=== PATIENT | female | born 1990 | race Caucasian/White ===

== ENCOUNTER 2020-03-10 09:32 | Outpatient (REF) | payer MEDICAID, SELFPAY ==
--- NOTE | 2020-03-10 09:57 | XR_ITS ---
EXAMINATION: X-RAY BILATERAL KNEES CLINICAL INFORMATION: Knee pain COMPARISON: 09/09/2016 TECHNIQUE: Right knee 4 views. Left knee 5 views. FINDINGS: Right knee: Normal alignment. Joint spaces are maintained. Small marginal patellar spurs. There is subchondral lucency suggesting cystic changes in the lateral patellar facet. No fracture or dislocation. No effusion. Left knee: Normal alignment. Joint spaces are maintained. Small marginal spurs in the 3 compartments. No fracture or dislocation. No effusion. XR/XR knee LT 3V IMPRESSION: Right knee: 1. No evidence of acute osseous abnormality.. 2. Mild patellofemoral arthritis. Left knee: No acute osseous abnormality. Mild degenerative spurring.
--- NOTE | 2020-03-10 09:57 | XR_ITS ---
EXAMINATION: X-RAY BILATERAL KNEES CLINICAL INFORMATION: Knee pain COMPARISON: 09/09/2016 TECHNIQUE: Right knee 4 views. Left knee 5 views. FINDINGS: Right knee: Normal alignment. Joint spaces are maintained. Small marginal patellar spurs. There is subchondral lucency suggesting cystic changes in the lateral patellar facet. No fracture or dislocation. No effusion. Left knee: Normal alignment. Joint spaces are maintained. Small marginal spurs in the 3 compartments. No fracture or dislocation. No effusion. XR/XR knee RT 3V IMPRESSION: Right knee: 1. No evidence of acute osseous abnormality.. 2. Mild patellofemoral arthritis. Left knee: No acute osseous abnormality. Mild degenerative spurring.
== END 2020-03-10 09:33 | disposition home or self-care (01) ==
LOC: HO.XRAY 09:32
PROVIDERS: PCP Family Medicine; Visit Provider Family Medicine
DX: G89.29 Other chronic pain (principal); M25.561 Pain in right knee; M25.562 Pain in left knee
CPT/HCPCS: 73562

== ENCOUNTER 2020-04-10 13:46 | Outpatient (REF) | payer MEDICAID, SELFPAY ==
[2020-04-10 16:48] LABS: CT PCR NOT DETECTED (Not Detect.); NG PCR NOT DETECTED (Not Detect.)
[2020-04-10 16:52] LABS: Syphilis Screen Nonreactive (Nonreactive)
[2020-04-11 04:45] LABS: HBsAGNum1 0.25 S/CO (0.00-0.99); HIV AB/AG Nonreactive (Nonreactive); HIV Num 1 0.29 S/CO (0.00-0.99); Hepatitis B Surface Antigen Negative (Negative)
[2020-04-11 13:21] LABS: BV Int Neg Control Negative (Negative); BV Int Pos Control Positive (Positive)
== END 2020-04-10 13:47 | disposition home or self-care (01) ==
LOC: HO.LAB 13:46
PROVIDERS: Visit Provider Obstetrics & Gynecology
DX: Z01.419 Encounter for gynecological examination (general) (routine) without abnormal findings (principal); Z11.3 Encounter for screening for infections with a predominantly sexual mode of transmission
CPT/HCPCS: 86780; 87340; 87389; 87480; 87491; 87510; 87591; 87660

== ENCOUNTER 2020-04-12 13:47 | Outpatient (REF) | payer MEDICAID, SELFPAY ==
--- NOTE | 2020-04-12 16:40 | MHC.AU.P13 ---
Adult Audiological Evaluation Date of Visit: 04/12/20 Reason for Appointment: Audiological evaluation due to concern for decreased hearing in the left ear. Ms. Resendiz notes that at ~10 years old she had an ear infection in the left ear and had a bad reaction to the antibiotic she was given. She feels that since that time she has continued to have problems with the left ear and hears some popping noises in the left ear. She denies concerns for the right ear. She also notes that she speaks loudly and thinks that may be related to not hearing well. Does patient feel they have a hearing loss?: Yes If Yes, Which Ear?: Left Ear When Was Hearing Difficulty First Noticed?: ~10 years old Has hearing been tested previously?: No Ear History: Ear Infections in Childhood: Both Ears Medical History: Medical History: Tobacco Use Medical History (Other): Fibromyalgia, anxiety Otoscopy: Right Ear: Unremarkable Left Ear: Unremarkable Tympanometry: Right Ear: Normal Middle Ear System (Type A) Left Ear: Normal Middle Ear System (Type A) Hearing Evaluation: Transducer(s) Used: Insert Earphones, Bone Conduction Method: Conventional Audiometry Stimuli Used: Pure Tones Right Ear: Description of Hearing: Normal hearing from 250-8000 Hz. Left Ear: Description of Hearing: Normal hearing from 250-8000 Hz. Speech Recognition Threshold (SRT): Method Used: Recorded Lists Stimuli Used: Spondee Words Right Ear: 25 dBHL Left Ear: 20 dBHL Word Discrimination: Method: Recorded Lists Word Lists Used: Lista Bisil?bica (Portuguese) Right Ear: 100% at 65 dBHL Left Ear: 100% at 65 dBHL Recommendations: Recommendations: No further audiological action is indicated at this time. Audiological re-evaluation if changes are noted. Diagnosis: Primary Diagnosis: H93.293 Abnormal Auditory Perception Services Performed: Services Performed: Comprehensive Audiological Evaluation (CPT 23554) Tympanometry (CPT 57225) Signature: Provider: Judy Mcintyre, JONATHON-A
== END 2020-04-12 13:48 | disposition home or self-care (01) ==
LOC: HO.SH 13:47
PROVIDERS: PCP Family Medicine; Referring Provider Family Medicine; Visit Provider Family Medicine
DX: H93.293 Other abnormal auditory perceptions, bilateral (principal)
CPT/HCPCS: 92557; 92567

== ENCOUNTER 2020-06-22 11:53 | Outpatient (REF) | payer MEDICAID, SELFPAY ==
[2020-06-22 13:09] LABS: MANUAL DIFF FLAG NO
[2020-06-22 13:14] LABS: Basophils Percent Auto 0.6 % (0-2); Eosinophils Absolute Auto 0.2 X10*3/uL (0.0-0.4); Eosinophils Percent Auto 2.5 % (0-4); Hematocrit 41.6 % (37-47); Hemoglobin 13.3 g/dl (12.0-16.0); Imm Gran Abs Auto 0.02 X10*3/uL (0.00-0.03); Imm Gran Pct Auto 0.3 % (0.0-0.4); Lymphocytes Absolute Auto 2.2 X10*3/uL (1.2-4.9); Lymphocytes Percent Auto 32.3 % (20-40); Mean Corpuscular Hemoglobin 27.8 pg (27.0-33.0); Mean Platelet Volume 9.7 fL (9.4-12.3); Monocytes Absolute Auto 0.4 X10*3/uL (0.1-1.2); Monocytes Percent Auto 5.9 % (2-11); Neutrophils Absolute Auto 4.1 X10*3/uL (2.0-8.3); Neutrophils Percent Auto 58.4 % (45-73); Platelet Count 329 X10*3/uL (160-400); Red Blood Count 4.78 X10*6/uL (4.20-5.50); Red Cell Distribution Width 12.3 % (11.0-16.0); White Blood Count 6.9 X10*3/uL (4.8-10.8)
[2020-06-22 13:44] LABS: Alanine Aminotransferase 14 U/L (0-31); Albumin Level 4.2 g/dL (3.5-5.0); Alkaline Phosphatase 70 U/L (39-117); Anion Gap 11 (12-20); Aspartate Amino Transferase 16 U/L (5-31); Bilirubin Direct 0.2 mg/dL (0.0-0.5); Bilirubin Total 0.4 mg/dL (0.0-1.0); Blood Urea Nitrogen 12 mg/dL (9-16); Calcium 9.1 mg/dL (8.4-10.2); Carbon Dioxide 29 mmol/L (22-29); Chloride 104 mmol/L (96-108); Cholesterol 162 mg/dL; Estimated Glomerular Filt Rate > 60; Glucose Random 86 mg/dL (60-115); HDL Cholesterol 49 mg/dL; LDL Cholesterol Calculated 106 mg/dl; Potassium 4.4 mmol/L (3.3-5.1); Sodium 140 mmol/L (135-145); Total Protein 7.3 g/dL (6.5-8.0); Triglycerides 35 mg/dL
[2020-06-22 13:56] LABS: HIV AB/AG Nonreactive (Nonreactive); HIV Num 1 0.17 S/CO (0.00-0.99); ~HepC Num1 0.13 S/CO (0.00-0.79); ~Hepatitis C Antibody Nonreactive (Nonreactive)
[2020-06-22 14:01] LABS: TSH reflex Free T4 0.69 uIU/mL (0.32-4.0)
[2020-06-22 19:38] LABS: Estimated Average Glucose 103 mg/dL; Hemoglobin A1c % 5.2 %
[2020-06-23 03:41] LABS: Syphilis Screen Nonreactive (Nonreactive)
[2020-06-23 14:11] LABS: C. trachomatis RNA TMA NOT DETECTED (NOT DETECTED); N. gonorrhoeae RNA TMA NOT DETECTED (NOT DETECTED)
== END 2020-06-22 11:54 | disposition home or self-care (01) ==
LOC: HO.LAB 11:53
PROVIDERS: PCP Nurse Practitioner Primary Care; Visit Provider Nurse Practitioner Primary Care
DX: Z00.00 Encounter for general adult medical examination without abnormal findings (principal); Z11.3 Encounter for screening for infections with a predominantly sexual mode of transmission; E55.9 Vitamin D deficiency, unspecified; E66.9 Obesity, unspecified; M79.7 Fibromyalgia; R00.0 Tachycardia, unspecified
CPT/HCPCS: 36415; 80048; 80061; 80076; 83036; 84443; 85025; 86780; 86803; 87389; 87491; 87591

== ENCOUNTER 2020-06-26 11:15 | Outpatient (REF) | payer MEDICAID, SELFPAY ==
--- NOTE | ~2020-06-26 | MM_ITS ---
EXAMINATION: MM DIAGNOSTIC DIGITAL BREAST TOMOSYNTHESIS, BILATERAL US DIAGNOSTIC ULTRASOUND BREAST, RIGHT CLINICAL INFORMATION: 29-year-old with persistent pain upper outer right breast. No palpable mass or discharge. No known family history breast cancer. No prior breast imaging. The lifetime risk of breast cancer based on the Tyrer-Cuzick Model is 9%. COMPARISON: None (current study represents initial baseline exam). TECHNIQUE: Digital breast tomosynthesis is performed in both the craniocaudal and mediolateral oblique views along with computer-aided detection (CAD). Synthesized 2D images are generated from the tomosynthesis. Ultrasound ultrasound right breast is targeted to the area of clinical concern. Grayscale imaging and color Doppler are performed without and with harmonics. Patient is able to point to area of concern at time of imaging. FINDINGS: There are scattered areas of fibroglandular density (ACR BI-RADS breast composition Category b). There are no significant masses, abnormal calcifications, or other abnormalities. The axilla and skin contours are unremarkable. There is no significant thickening or coarsening of the Giovanni's ligaments. Ultrasound right breast demonstrates no cystic or solid mass, architectural abnormality, or focal duct ectasia. No skin thickening or edema tracking in soft tissue planes. Results are discussed with the patient at time of visit. MM/MM tomosynthesis diagnostic BI IMPRESSION: 1. No mammographic evidence of malignancy or inflammatory changes. 2. Unremarkable targeted right breast ultrasound. ASSESSMENT: BI-RADS 1: Negative RECOMMENDATION: 1. Patient's right breast pain should be managed based on the clinical impression. 2. Otherwise, routine annual screening mammography, beginning age 40, or earlier as clinical risk factors warrant. This patient's information was entered into a reminder system with a target due date for their next mammogram.
== END 2020-06-26 11:16 | disposition home or self-care (01) ==
LOC: HO.MAMMO 11:15
PROVIDERS: PCP Nurse Practitioner Primary Care; Visit Provider Nurse Practitioner Primary Care
DX: N64.4 Mastodynia (principal); Z80.3 Family history of malignant neoplasm of breast
CPT/HCPCS: 76642; 77062; 77066

== ENCOUNTER 2020-07-20 13:00 | Outpatient (RCR) | payer MEDICAID, SELFPAY | END 2020-10-03 15:43 | disposition other institution (70) | LOC: HO.PT 13:00 | PROVIDERS: PCP Nurse Practitioner Primary Care; Visit Provider Nurse Practitioner Primary Care | DX: M17.0 Bilateral primary osteoarthritis of knee (principal) | CPT/HCPCS: 97110; 97140; 97162; 97530 ==

== ENCOUNTER 2020-08-23 11:39 | Outpatient (REF) | payer MEDICAID, SELFPAY ==
[2020-08-23 12:48] LABS: Syphilis Screen Nonreactive (Nonreactive)
[2020-08-24 08:55] LABS: CT PCR NOT DETECTED (Not Detect.); NG PCR NOT DETECTED (Not Detect.)
[2020-08-25 07:44] LABS: ~HepC Num1 0.09 S/CO (0.00-0.79); ~Hepatitis C Antibody Nonreactive (Nonreactive)
[2020-08-25 07:52] LABS: HBc Num1 0.07 S/CO (0.00-0.79); HIV AB/AG Nonreactive (Nonreactive); HIV Num 1 0.06 S/CO (0.00-0.99); Hepatitis B Core Antibody Nonreactive (Nonreactive)
[2020-08-25 08:09] LABS: HBS Num1 145.42 mIU/mL (0-7.99); ~Hepatitis B Surface Antibody REACTIVE (Nonreactive)
== END 2020-08-23 11:40 | disposition home or self-care (01) ==
LOC: HO.LAB 11:39
PROVIDERS: PCP Nurse Practitioner Primary Care; Visit Provider Nurse Practitioner Primary Care
DX: Z11.4 Encounter for screening for human immunodeficiency virus [HIV] (principal); Z11.3 Encounter for screening for infections with a predominantly sexual mode of transmission; Z01.84 Encounter for antibody response examination
CPT/HCPCS: 86704; 86706; 86780; 86803; 87389; 87491; 87591

== ENCOUNTER 2020-11-06 15:46 | Outpatient (REF) | payer MEDICAID, SELFPAY | END 2020-11-06 15:47 | disposition home or self-care (01) | LOC: HO.LAB 15:46 | PROVIDERS: Visit Provider Internal Medicine | DX: Z20.822 Contact with and (suspected) exposure to COVID-19 (principal) | CPT/HCPCS: C9803; U0003; U0005 ==

== ENCOUNTER 2021-01-22 11:00 | Outpatient (RCR) | payer MEDICAID, SELFPAY | END 2021-02-06 11:35 | disposition home or self-care (01) | LOC: HO.PT 11:00 | PROVIDERS: PCP Nurse Practitioner Primary Care; Visit Provider Nurse Practitioner Primary Care | DX: M54.9 Dorsalgia, unspecified (principal) | CPT/HCPCS: 97110; 97162 ==

== ENCOUNTER 2021-01-24 13:10 | Emergency (ER) | payer MEDICAID, SELFPAY ==
--- NOTE | 2021-01-24 | ECG_ITS ---
Test Reason : CHEST PAIN Blood Pressure : / mmHG Vent. Rate : 065 BPM Atrial Rate : 065 BPM P-R Int : 162 ms QRS Dur : 082 ms QT Int : 368 ms P-R-T Axes : 036 057 037 degrees QTc Int : 382 ms Normal sinus rhythm with sinus arrhythmia Nonspecific T wave abnormality Abnormal ECG No previous ECGs available Referred By: Generic ED Physician Electronically Signed By:ASHLEE CONLEY
--- NOTE | ~2021-01-24 | CT_ITS ---
EXAMINATION: CT ANGIOGRAM CHEST CLINICAL INFORMATION: Pain and pressure with left hand pain: COMPARISON: None TECHNIQUE: Multiple axial images were obtained through the chest after the administration of 76 mL of Omnipaque 350 intravenous contrast. Post-processing including two-dimensional and MIP reformatted images were created on the acquisition workstation. This CT examination was performed using dose optimization techniques as appropriate, variously including the following: *Automated exposure control *Adjustment of mA and/or kV according to patient size (this includes techniques or standardized protocols for targeted exams where dose is matched to indication/reason for exam; i.e. extremities or head) *Use of iterative reconstruction technique DLP: 354 mGy-cm FINDINGS: There is some breathing and pulsation motion artifact present limiting evaluation of the aortic root and distal thoracic aorta. There is no evidence of thoracic aortic aneurysm or thoracic aortic dissection. The origin of the arch vessels appear unremarkable without evidence of dissection or obstruction. The left subclavian artery is patent without evidence of dissection or filling defect. The right innominate and subclavian arteries are patent without dissection or abnormal filling defect. The proximal aspects of the vertebral and carotid arteries are patent. Central airways are patent. No bronchial wall thickening. No bronchiectasis. No confluent parenchymal disease. No suspicious lung nodules. No pneumothorax. Heart normal size. Some residual thymus is seen. No thyroid abnormality appreciated. No pericardial effusion. No mediastinal or hilar lymphadenopathy seen. No pleural effusion. Visualized upper abdomen unremarkable. Osseous structures: No suspicious destructive bony lesions. CT/CT angio chest aorta IMPRESSION: No evidence of thoracic aortic aneurysm or dissection. No significant abnormality identified of the visualized left subclavian artery. No significant abnormality is appreciated on this study.
[2021-01-24 14:02] VITALS: BP 110/69; PULSE 68; RESP 17; TEMP 36.8; O2SAT 100; BMI 32.8
--- NOTE | 2021-01-24 14:14 | ED_ITS ---
HPI - Chest Pain General Chief Complaint: Chest Pain Stated Complaint: med eval Time Seen by Provider: 01/24/21 14:08 Source: patient and carroter Mode of arrival: ambulatory Limitations: no limitations History of Present Illness MD complaint: chest pain Onset (ago): week(s) (2) Timing of current episode: constant Prior episodes: No Onset: during rest and during exertion Pain location: left chest Pain radiation: left arm Severity: moderate Quality: heaviness Relieving factors: nothing Exacerbating factors: nothing Context: other (states it started after her covid vaccine, her arm feels cold and tingly at times) Treatment prior to arrival: none Related Data Previous Rx's Medication Instructions Recorded cyclobenzaprine 10 mg tablet 10 mg PO TID PRN #14 tab 01/24/21 Allergies Allergy/AdvReac Type Severity Reaction Status Date / Time aspirin [ASPIRIN] Allergy Intermediate RASH, Verified 01/24/21 14:02 shortness of breath Review of Systems Review of Systems: Constitutional : No Weight loss, No Fever, No Chills ENT/Mouth : No sore throat, No Rhinorrhea Eyes: No Eye Pain, No Swelling Cardiovascular : pos Chest Pain, no SOB, no Dyspnea on Exertion, No Orthopnea, No Edema, No Palpitations Respiratory : No Cough, No Sputum Gastrointestinal : no Nausea, No Vomiting, No Diarrhea, No abdominal Pain, No Hematochezia, No Melena Genitourinary : No Dysuria, No Urinary Frequency Musculoskeletal : No joint pain, No Myalgias, No Joint Swelling Skin : No Skin Lesions, No rash Neuro : No Weakness, pos Numbness, No Dizziness, No Headache Psych : No Anxiety/Panic, No Depression Heme/Lymph: No Bruising, No Lymphadenopathy Endocrine : No Polyuria, No Polydipsia All other systems reviewed and are negative [facility] Past Medical History Attestation statement: The following information was validated with the patient. Medical History Fibromyalgia Surgical History Tubal ligation status Social History Social History Alcohol intake: never Patient Tobacco Use Status: Never used Tobacco Use of substances other than those prescribed or required for medical reasons: Yes Substance Use Type: Marijuana Substance Use Frequency: Daily Advance Directives: No Advance Directives Information Provided: Yes Patient : No Physical Exam Vital Signs: Vital Signs: Last Vital Signs Temp 98.2 F 01/24/21 14:02 Pulse 69 01/24/21 14:21 Resp 16 01/24/21 14:21 BP 102/60 01/24/21 14:21 Pulse Ox 100 01/24/21 14:21 Body Mass Index 32.8 Appearance: Alert. Oriented X3. No acute distress. Eyes: Pupils equal, round and reactive to light. ENT: Pharynx normal. Neck: Normal inspection. Neck supple. CVS: Normal heart rate and rhythm. Pulses normal. Respiratory: No respiratory distress. Breath sounds normal. Abdomen: Soft and nontender. Skin: Skin warm and dry. Normal skin color. Normal skin turgor. Extremities: No lower extremity edema. No calf ttp LUE 2+ radial pulse, temperature similar to R hand Neuro: Oriented X 3. No motor deficit. No sensory deficit. Course Course Course Narrative: EKG trop neg with 2 weeks of symptoms signed out pending CTA results MDM - Chest Pain MDM Narrative Medical decision making narrative: 30 yo female c/o L chest pain and L hand being cold and upper arm tingling after her COVID shot. She is PERC negative, I do not appreciate deficits has a great pulse - will obtain EKG, troponin x 1, CTA for dissection and evaluation of vessels. Seems atypical at this time. doubt stroke Lab Data Result diagrams: 01/24/21 14:27 01/24/21 14:27 Labs: Lab Results 01/24/21 01/24/21 01/24/21 Range/Units 14:27 14:27 14:27 WBC 9.2 (4.8-10.8) X10*3/uL RBC 4.51 (4.20-5.50) X10*6/uL Hgb 13.2 (12.0-16.0) g/dl Hct 39.5 (37-47) % MCV 87.6 (80-98) fL MCH 29.3 (27.0-33.0) pg MCHC 33.4 (31.0-35.0) g/dl RDW 12.4 (11.0-16.0) % Plt Count 277 (160-400) X10*3/uL MPV 9.1 L (9.4-12.3) fL Immature Gran % (Auto) 0.3 (0.0-0.4) % Neut % (Auto) 60.3 (45-73) % Lymph % (Auto) 31.6 (20-40) % Wilcox % (Auto) 5.9 (2-11) % Eos % (Auto) 1.5 (0-4) % Baso % (Auto) 0.4 (0-2) % Lymph # (Auto) 2.9 (1.2-4.9) X10*3/uL Wilcox # (Auto) 0.5 (0.1-1.2) X10*3/uL Eos # (Auto) 0.1 (0.0-0.4) X10*3/uL Baso # (Auto) 0.0 (0.0-0.2) X10*3/uL Abs Immat Gran (auto) 0.03 (0.00-0.03) X10*3/uL Absolute Neuts (auto) 5.5 (2.0-8.3) X10*3/uL Absolute Nucleated RBC 0.000 (0.0-0.012) X10*3/uL Nucleated RBC % (auto) 0.0 (0.0-0.2) /100WBC Sodium 138 (135-145) mmol/L Potassium 3.5 D (3.3-5.1) mmol/L Chloride 105 (96-108) mmol/L Carbon Dioxide 26 (22-29) mmol/L Anion Gap 11 L (12-20) BUN 8 L (9-16) mg/dL Creatinine 0.86 (0.5-1.4) mg/dL Estim Creat Clear Calc 104.6 Estimated GFR > 60 Random Glucose 70 (60-115) mg/dL Calcium 9.6 (8.4-10.2) mg/dL Magnesium 2.1 (1.6-2.6) mg/dL Total Bilirubin 0.5 (0.0-1.0) mg/dL Direct Bilirubin 0.2 (0.0-0.5) mg/dL AST 15 (5-31) U/L ALT 12 (0-31) U/L Alkaline Phosphatase 67 (39-117) U/L Troponin I High Sens (<3.5-17.0) ng/L Total Protein 7.2 (6.5-8.0) g/dL Albumin 4.3 (3.5-5.0) g/dL Lipase 28 (8-78) U/L COVID-19 ([facility]) (Negative) COVID-19 Clin Com 01/24/21 01/24/21 Range/Units 14:27 14:28 WBC (4.8-10.8) X10*3/uL RBC (4.20-5.50) X10*6/uL Hgb (12.0-16.0) g/dl Hct (37-47) % MCV (80-98) fL MCH (27.0-33.0) pg MCHC (31.0-35.0) g/dl RDW (11.0-16.0) % Plt Count (160-400) X10*3/uL MPV (9.4-12.3) fL Immature Gran % (Auto) (0.0-0.4) % Neut % (Auto) (45-73) % Lymph % (Auto) (20-40) % Wilcox % (Auto) (2-11) % Eos % (Auto) (0-4) % Baso % (Auto) (0-2) % Lymph # (Auto) (1.2-4.9) X10*3/uL Wilcox # (Auto) (0.1-1.2) X10*3/uL Eos # (Auto) (0.0-0.4) X10*3/uL Baso # (Auto) (0.0-0.2) X10*3/uL Abs Immat Gran (auto) (0.00-0.03) X10*3/uL Absolute Neuts (auto) (2.0-8.3) X10*3/uL Absolute Nucleated RBC (0.0-0.012) X10*3/uL Nucleated RBC % (auto) (0.0-0.2) /100WBC Sodium (135-145) mmol/L Potassium (3.3-5.1) mmol/L Chloride (96-108) mmol/L Carbon Dioxide (22-29) mmol/L Anion Gap (12-20) BUN (9-16) mg/dL Creatinine (0.5-1.4) mg/dL Estim Creat Clear Calc Estimated GFR Random Glucose (60-115) mg/dL Calcium (8.4-10.2) mg/dL Magnesium (1.6-2.6) mg/dL Total Bilirubin (0.0-1.0) mg/dL Direct Bilirubin (0.0-0.5) mg/dL AST (5-31) U/L ALT (0-31) U/L Alkaline Phosphatase (39-117) U/L Troponin I High Sens < 3.5 (<3.5-17.0) ng/L Total Protein (6.5-8.0) g/dL Albumin (3.5-5.0) g/dL Lipase (8-78) U/L COVID-19 ([facility]) Negative (Negative) COVID-19 Clin Com See Note ECG Data ECG #1: Attestation: I personally reviewed and interpreted this ECG as follows: ECG interpretation date: 01/24/21 ECG interpretation time: 14:24 Interpretation: Rate: 65 Rhythm: NSR [place]: normal Normal P waves. Normal MATILDE. Normal QRS complex. ST T wave : no PADILLA, nonspecific qTC: normal prior studies: no prior no sig ischemia noted The study has been interpreted contemporaneously by me. . Discharge Plan Discharge Clinical Impression: Arm paresthesia, left Chest pain Qualifiers: Chest pain type: unspecified Qualified Code(s): R07.9 - Chest pain, unspecified Patient Disposition: Home, Self-Care Instructions: Chest Pain (ED), Paresthesia (ED) Additional Instructions: return to ED for any worsening symptoms or concerns COVID negative Prescriptions: New cyclobenzaprine 10 mg tablet 10 mg PO TID PRN (Reason: muscle spasm) Qty: 14 RF: 0 Stand Alone Forms: Work/School Release Print Language: [place] Islander
[2021-01-24 14:21] VITALS: BP 102/60; PULSE 66; PULSE 69; RESP 16; O2SAT 100
--- NOTE | 2021-01-24 14:22 | PC.NURSE ---
Pt denies chest pain but reports that it is more of a pressure. The pressure extends to her left arm and she has numbness to left arm and hand.
[2021-01-24 14:33] LABS: MANUAL DIFF FLAG NO
[2021-01-24 14:34] LABS: Basophils Percent Auto 0.4 % (0-2); Eosinophils Absolute Auto 0.1 X10*3/uL (0.0-0.4); Eosinophils Percent Auto 1.5 % (0-4); Hematocrit 39.5 % (37-47); Hemoglobin 13.2 g/dl (12.0-16.0); Imm Gran Abs Auto 0.03 X10*3/uL (0.00-0.03); Imm Gran Pct Auto 0.3 % (0.0-0.4); Lymphocytes Absolute Auto 2.9 X10*3/uL (1.2-4.9); Lymphocytes Percent Auto 31.6 % (20-40); Mean Corpuscular HGB Conc 33.4 g/dl (31.0-35.0); Mean Corpuscular Hemoglobin 29.3 pg (27.0-33.0); Mean Corpuscular Volume 87.6 fL (80-98); Mean Platelet Volume 9.1 fL (9.4-12.3); Monocytes Absolute Auto 0.5 X10*3/uL (0.1-1.2); Monocytes Percent Auto 5.9 % (2-11); Neutrophils Absolute Auto 5.5 X10*3/uL (2.0-8.3); Neutrophils Percent Auto 60.3 % (45-73); Platelet Count 277 X10*3/uL (160-400); Red Blood Count 4.51 X10*6/uL (4.20-5.50); Red Cell Distribution Width 12.4 % (11.0-16.0); White Blood Count 9.2 X10*3/uL (4.8-10.8)
[2021-01-24 14:50] LABS: COVID-19 Test Negative (Negative)
[2021-01-24 14:53] LABS: Anion Gap 11 (12-20); Blood Urea Nitrogen 8 mg/dL (9-16); Calcium 9.6 mg/dL (8.4-10.2); Carbon Dioxide 26 mmol/L (22-29); Chloride 105 mmol/L (96-108); Creatinine Clr Calc Pharmacy 104.6; Estimated Glomerular Filt Rate > 60; Glucose Random 70 mg/dL (60-115); Potassium 3.5 mmol/L (3.3-5.1); Sodium 138 mmol/L (135-145)
[2021-01-24 14:56] LABS: Alanine Aminotransferase 12 U/L (0-31); Albumin Level 4.3 g/dL (3.5-5.0); Alkaline Phosphatase 67 U/L (39-117); Aspartate Amino Transferase 15 U/L (5-31); Bilirubin Direct 0.2 mg/dL (0.0-0.5); Bilirubin Total 0.5 mg/dL (0.0-1.0); Lipase 28 U/L (8-78); Magnesium 2.1 mg/dL (1.6-2.6); Total Protein 7.2 g/dL (6.5-8.0)
[2021-01-24 14:59] LABS: Troponin-I High Sensitivity < 3.5 ng/L (<3.5-17.0)
[2021-01-24] MEDS: iohexoL 350 MG/ML 100 ML INFUS..BTL IV (15:35)
[2021-01-24 17:03] VITALS: BP 119/71; PULSE 62; RESP 20; TEMP 36.7; O2SAT 100
== END 2021-01-24 18:09 | disposition home or self-care (01) ==
PROVIDERS: Emergency Provider Emergency Medicine; PCP Nurse Practitioner Primary Care
DX: R07.9 Chest pain, unspecified (principal); R20.2 Paresthesia of skin; Z20.822 Contact with and (suspected) exposure to COVID-19; Z79.899 Other long term (current) drug therapy
CPT/HCPCS: 36415; 71275; 80048; 80076; 83690; 83735; 84484; 85025; 87635; 93005; 99284; 99285; Q9967

== ENCOUNTER 2021-04-11 13:45 | Outpatient (REF) | payer MEDICAID, SELFPAY ==
[2021-04-11 16:23] LABS: Syphilis Screen Nonreactive (Nonreactive)
[2021-04-12 02:52] LABS: CT PCR NOT DETECTED (Not Detect.); NG PCR NOT DETECTED (Not Detect.)
[2021-04-12 10:17] LABS: BV Int Neg Control Negative (Negative); BV Int Pos Control Positive (Positive)
[2021-04-13 04:58] LABS: HBc Num1 0.08 S/CO (0.00-0.79); HIV AB/AG Nonreactive (Nonreactive); HIV Num 1 0.07 S/CO (0.00-0.99); Hepatitis B Core Antibody Nonreactive (Nonreactive)
[2021-04-13 05:06] LABS: ~HepC Num1 0.09 S/CO (0.00-0.79); ~Hepatitis C Antibody Nonreactive (Nonreactive)
[2021-04-16 09:46] LABS: HPV 16 RNA NOT DETECTED (NOT DETECTED); HPV mRNA E6/E7 rflx Detected (Not Detected)
== END 2021-04-11 13:46 | disposition home or self-care (01) ==
LOC: HO.LAB 13:45
PROVIDERS: Visit Provider Advanced Practice Midwife
DX: Z01.411 Encounter for gynecological examination (general) (routine) with abnormal findings (principal); Z11.51 Encounter for screening for human papillomavirus (HPV); Z11.4 Encounter for screening for human immunodeficiency virus [HIV]; Z20.2 Contact with and (suspected) exposure to infections with a predominantly sexual mode of transmission; N89.8 Other specified noninflammatory disorders of vagina; N94.9 Unspecified condition associated with female genital organs and menstrual cycle
CPT/HCPCS: 36415; 81003; 81025; 86704; 86780; 86803; 87255; 87389; 87480; 87491; 87510; 87591; 87624; 87625; 87660; 88142

== ENCOUNTER 2021-04-17 11:29 | Outpatient (REF) | payer MEDICAID, SELFPAY ==
--- NOTE | ~2021-04-17 | US_ITS ---
EXAMINATION: US PELVIS CLINICAL INFORMATION: Pelvic pain COMPARISON: None TECHNIQUE: Ultrasound of the pelvis is performed using both transabdominal and transvaginal transducers along with Doppler. Transvaginal imaging is performed due to inadequate visualization transabdominally. FINDINGS: Uterus: The uterus is anteverted and measures 8 x 4.5 x 5.5 cm. Nabothian cysts at the cervix. The double wall endometrial thickness is 0.6 mm. Small amount of fluid seen within the endometrial cavity. The uterus is smooth in contour and has normal myometrial echogenicity. No visible fibroid. Adnexa: Both ovaries are visualized. There is normal color flow to the adnexa. There is no ovarian torsion. Small volume of pelvic free fluid.. Right ovary measures 3.6 x 2.1 x 2.4 cm. 1.8 cm corpus luteum noted. Left ovary measures 3 x 1.4 x 1.7 cm. No adnexal mass. US/US pelvic and transvaginal IMPRESSION: Small amount of pelvic free fluid which may be physiologic. Small amount of fluid in the endometrial cavity. No adnexal or uterine mass.
== END 2021-04-17 11:30 | disposition home or self-care (01) ==
LOC: HO.US 11:29
PROVIDERS: Absent Provider Nurse Practitioner Primary Care; PCP Nurse Practitioner Primary Care; Visit Provider Advanced Practice Midwife
DX: R10.2 Pelvic and perineal pain (principal)
CPT/HCPCS: 76830; 76856

== ENCOUNTER → 2021-07-10 09:58 | Outpatient (BNVA) | payer MEDICAID, SELFPAY | PROVIDERS: PCP Nurse Practitioner Primary Care; Visit Provider Physician Assistant Surgical ==

== ENCOUNTER 2022-06-05 11:03 | Outpatient (REF) | payer MEDICAID, SELFPAY ==
[2022-06-05 13:16] LABS: Syphilis Screen Nonreactive (Nonreactive)
[2022-06-05 15:07] LABS: CT PCR NOT DETECTED (Not Detect.); NG PCR NOT DETECTED (Not Detect.)
[2022-06-07 06:24] LABS: HBc Num1 0.13 S/CO (0.00-0.79); HIV AB/AG Nonreactive (Nonreactive); Hepatitis B Core Antibody Nonreactive (Nonreactive); ~Hepatitis C Antibody Nonreactive (Nonreactive)
== END 2022-06-05 11:04 | disposition home or self-care (01) ==
LOC: HO.LAB 11:03
PROVIDERS: PCP Nurse Practitioner Primary Care; Visit Provider Advanced Practice Midwife
DX: Z11.4 Encounter for screening for human immunodeficiency virus [HIV] (principal); Z11.3 Encounter for screening for infections with a predominantly sexual mode of transmission; Z20.2 Contact with and (suspected) exposure to infections with a predominantly sexual mode of transmission
CPT/HCPCS: 0353U; 86704; 86780; 86803; 87389; 87624; 88142

== ENCOUNTER 2022-06-05 11:32 | Outpatient (REF) | payer MEDICAID, SELFPAY ==
[2022-06-07 17:58] LABS: HPV mRNA E6/E7 rflx Not Detected (Not Detected)
== END 2022-06-05 11:33 | disposition home or self-care (01) ==
LOC: HO.LNP 11:32
PROVIDERS: Visit Provider Advanced Practice Midwife
DX: Z01.419 Encounter for gynecological examination (general) (routine) without abnormal findings (principal); Z11.51 Encounter for screening for human papillomavirus (HPV)
CPT/HCPCS: 87624; 88142

== ENCOUNTER → 2022-08-22 14:31 | Outpatient (REF) | payer MEDICAID, SELFPAY ==
--- NOTE | 2022-08-22 14:33 | CA_ITS ---
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 The visually estimated ejection fraction is between 60-65%. Diastolic function is normal for age. Right Ventricle Normal right ventricular cavity size and systolic function. Atria Both atria are normal in size. There is no evidence of interatrial shunt. Aortic Valve Normal aortic valve structure and function. There is no aortic valve stenosis. There is no aortic valve regurgitation. Mitral Valve Normal mitral valve structure and function. There is no mitral valve regurgitation. There is no mitral valve stenosis. Pulmonic Valve The pulmonic valve is likely normal. Tricuspid Valve Normal tricuspid valve structure. There is trace tricuspid valve regurgitation. The right ventricular systolic pressure is normal. The right ventricular systolic pressure is 21 mmHg. Normal right atrial pressure. There is no evidence of pulmonary hypertension. Great Vessels All visible segments of the aorta are normal in size. The visualized portions of the pulmonary artery and branches are normal. Venous The inferior vena cava is normal in size and collapses greater than 50% with inspiration. Pericardium/Pleural There is no evidence of pericardial effusion. Prior Study Comparison No prior study available for comparison. Measurements 2D Linear Measurements IVSd: 0.60 0.6-0.9/0.6-1.0 cm LVIDd: 5.39 3.9-5.3/4.2-5.9 cm LVIDd Index: 2.59 2.4-3.2/2.2-3.1 cm/m2 LVIDs: 3.40 2.0-3.6 cm LVPWd: 0.61 0.7-1.1 cm LA Diam: 3.40 2.7-3.8/3.0-4.0 cm LAIDs Index: 1.63 1.5-2.3 cm/m2 LV Mass: 136.14 67-162/88-224 g LV Mass Index: 65.45 43-95/49-115 g/m2 LVOT Diam: 2.10 3.0+(-)1.3 cm 2D Systolic Function EF 4C: 61.70 >55% EF 2C: 64.80 >55% EF BiP: 64.30 >55% Mitral Valve MV Pk E: 1.02 MV PK A: 0.54 MV Decel Time: 193.00 E/A: 1.90 E'Lateral: 12.80 E'Medial: 10.60 E/E' Med: 9.60 E/E' Lat: 8.00 PHT: 57.00 MVA PHT: 3.86 Decel [place]: 5.30 Aortic Valve AoV Pk Hi: 1.16 AoV Pk Grad: 5.00 BLANKA: 3.10 LVOT LVOT Pk Hi: 1.04 LVOT Mn Hi: 0.71 LVOT VTI: 0.23 LVOT Pk Grad: 4.00 LVOT Mn Grad: 2.00 LVOT Diam: 2.10 LVOT Area: 3.46 Diastolic Function MV Pk E: 1.02 MV Pk A: 0.54 E/A: 1.90 E'Medial: 10.60 E/E' Med: 9.60 E' Laterial: 12.80 E/E' Lat: 8.00 Right Ventricle TAPSE (mm): 21.20 TVS' Hi: 12.60 Tricuspid Valve TR Pk Hi: 2.12 TR Pk Grad: 18.00 RVSP: 21.00 Great Vessels Aorta Sinus of Valsalva: 2.70 2.0-3.5 cm Ao Asc: 2.50 2.1-3.4 cm Pulmonary Veins Pulm Vein S/D 0.80 Pulmonary Valve PV Pk Hi: 0.95 Peak PV Grad: 4.00 Updated in Other Vendor System with Status of Final Iván Harry MD electronically signed on 08/22/2022 5:28:40 PM with status of Final
== END ==
LOC: HO.CARD 14:31
PROVIDERS: PCP Nurse Practitioner Primary Care; Visit Provider Nurse Practitioner Primary Care
DX: R00.2 Palpitations (principal)
CPT/HCPCS: 93306

== ENCOUNTER 2022-10-01 15:19 | Outpatient (REF) | payer MEDICAID, SELFPAY ==
--- NOTE | ~2022-10-01 | XR_ITS ---
EXAMINATION: XR ANKLE, RIGHT CLINICAL INFORMATION: Pain COMPARISON: None available. TECHNIQUE: AP, lateral, and mortise views of the right ankle. FINDINGS: The bones are normal. No fracture. Alignment is anatomic. Joint spaces are maintained. No joint effusion. Small calcaneal spurs. XR/XR ankle RT min 3V IMPRESSION: Normal right ankle. Small calcaneal spurs.
--- NOTE | ~2022-10-01 | XR_ITS ---
EXAMINATION: XR KNEE, RIGHT CLINICAL INFORMATION: Pain COMPARISON: Previous x-ray most recent February 2020 TECHNIQUE: Four views of the right knee. FINDINGS: Bone alignment is normal. No fracture or dislocation. Small osteophytes at the patellofemoral and lateral femoral tibial joints. Small joint effusion. XR/XR knee RT 4V IMPRESSION: Mild degenerative changes.
== END 2022-10-01 15:20 | disposition home or self-care (01) ==
LOC: HO.XRAY 15:19
PROVIDERS: Absent Provider Nurse Practitioner Primary Care; PCP Nurse Practitioner Primary Care; Visit Provider Internal Medicine
DX: M25.561 Pain in right knee (principal); M25.571 Pain in right ankle and joints of right foot; G89.29 Other chronic pain
CPT/HCPCS: 73564; 73610

== ENCOUNTER 2022-11-28 11:58 | Outpatient (REF) | payer MEDICAID, SELFPAY ==
--- NOTE | ~2022-11-28 | XR_ITS ---
EXAMINATION: XR KNEE AP STANDING CLINICAL INFORMATION: Pain in the right knee COMPARISON: 10/04/2022 right knee TECHNIQUE: AP bilateral standing view of the knees was obtained. FINDINGS: There is no joint space is narrowing but there are mild marginal spurring and the lateral aspect of the tibial plateau bilaterally. Knees are well aligned on the weightbearing view. XR/XR knee standing BI IMPRESSION: Degenerative changes bilaterally
== END 2022-11-28 11:59 | disposition home or self-care (01) ==
LOC: HO.HOSX 11:58
PROVIDERS: Visit Provider Physician Assistant
DX: M17.11 Unilateral primary osteoarthritis, right knee (principal)
CPT/HCPCS: 73565; 99204

== ENCOUNTER 2022-11-28 13:25 | Outpatient (AMB) | payer MEDICAID, SELFPAY ==
--- NOTE | 2022-11-28 13:31 | A.OFFVIS_ITS ---
Intake Vital Signs 11/28/22 13:38 Height 5 ft 5 in Weight 226 lb BMI 37.6 Intake Visit Reasons: New PT - Right knee pain Intake Note: Sandrine is a 32 year old female who presents today as a new patient for a evaluation for her right knee pain. No hx of injections. Hx of PT with no relief. Patient reports ongoing pain for 10 years. She states a crunching sensation when walking and notices swelling when she over works. Her pain is on the whole knee. Pain is worse when sitting and getting up from a chair. Alos having c/o her left knee to but her right knee is worse. Allergies aspirin [ASPIRIN] Allergy (Intermediate, Verified 11/28/22 13:37) RASH, shortness of breath HPI New PT - Right knee pain HPI Details 32-year-old female, who is Bangladeshi speaking, presents in the office today, as a new patient, for an evaluation of right knee pain. The patient reports having chronic pain for 10 years, since 2012. She states she has tingling. She states she has a crunching sensation when ambulating. She reports edema when she over works the knee. Patient reports pain in the left knee, but states the right is worse then the left. Patient has no history of cortisone injections. She confirms participating in physical therapy with no relief. [facility] Medical History Fibromyalgia Hemorrhoids Surgical History Tubal ligation status Family History Father Diabetes Mother Diabetes Social History Alcohol intake: never Patient Tobacco Use Status: Never used Tobacco Substance Use Type: Marijuana Review of Systems Const All systems reviewed & are unremarkable except as noted in HPI and below Physical Exam Vital Signs: BMI result Body Mass Index 37.6 Const General: cooperative, healthy appearing, comfortable, no acute distress, well developed and alert Orientation/consciousness: patient oriented x3 HEENT Head: Yes normal to inspection, Yes normocephalic and Yes atraumatic Eyes General: appearance normal, both eyes and all related structures Resp Effort & Inspection: normal respiratory effort and able to speak in complete sentences Cardio Rate: regular rate Peripheral pulses: Peripheral pulses 2+ throughout GI Palpation (GI): Soft to palpation Skin Lesions: no lesions Rashes: no rashes Neuro General: patient oriented x3 Extrem Other: Right knee: Normal to inspection. No ecchymosis, erythema, or joint effusion. No tenderness to palpation to the medial or lateral joint lines. Full knee exten enrique and flexion. Crepitus felt with ROM. Negative Eleni's. Negative anterior draw. NVI. Assessment & Plan Assessment & Plan (1) Patellofemoral arthritis of right knee: Code(s): M17.11 - Unilateral primary osteoarthritis, right knee Plan Ms. Resendiz is a 32-year-old female, who is Bangladeshi speaking, presents in the office today, as a new patient, for an evaluation of right knee pain. The patient reports having chronic pain for 10 years, since 2012. She states she has tingling. She states she has a crunching sensation when ambulating. She reports edema when she over works the knee. Patient reports pain in the left knee, but states the right is worse then the left. Patient has no history of cortisone injections. She confirms participating in physical therapy with no relief. I discussed the role of cortisone injections with the patient today. She would like to hold off at this time. I also offered her a knee brace. The patient will given a true pull knee brace, off the shelf, while in the office today. I will place a referral to library specialist for further evaluation and treatment. With the patient?s past medical history significant with fibromyalgia and an early onset right knee arthritis. I would like the patient to follow the patient to follow up with rheumatology to make sure there is no rhumatologic component that might be the cause of this. Follow up will be PRN, or sooner if needed. X-rays of the right knee which were obtained while in the office today and were reviewed by me, Evelyn Jin PA-C, revealed patellofemoral arthritis. Orders: Orders XR knee standing BI Today M25.569 - Pain in unspecified knee Referrals Rheumatology Referral M17.11 - Unilateral primary osteoarthritis, right knee Patient Instructions: Scribed for Evelyn Jin PA-C by Masha Ventura medical physics researcher, on 11/28/2022 at 1:32 pm, EST. Your attestation Coding Level of Care Code New Pt Level 4 (50481) Diagnoses Patellofemoral arthritis of right knee M17.11
[2022-11-28 13:38] VITALS: BMI 37.6
== END 2022-11-28 14:59 | disposition home or self-care (01) ==
PROVIDERS: Visit Provider Physician Assistant
DX: M17.11 Unilateral primary osteoarthritis, right knee (principal)
CPT/HCPCS: 99204

== ENCOUNTER 2023-01-28 12:02 | Outpatient (REF) | payer MEDICAID, SELFPAY ==
[2023-01-28 13:56] LABS: Alanine Aminotransferase 16 U/L (0-31); Albumin Level 4.5 g/dL (3.5-5.0); Alkaline Phosphatase 63 U/L (39-117); Anion Gap 8 (12-20); Aspartate Amino Transferase 17 U/L (5-31); Bilirubin Total 0.4 mg/dL (0.0-1.0); Blood Urea Nitrogen 7 mg/dL (9-16); Calcium 10.2 mg/dL (8.4-10.2); Carbon Dioxide 27 mmol/L (22-29); Chloride 108 mmol/L (96-108); Estimated Glomerular Filt Rate > 60; Glucose Random 92 mg/dL (60-115); Potassium 4.2 mmol/L (3.3-5.1); Sodium 139 mmol/L (135-145)
[2023-01-28 23:16] LABS: CT PCR NOT DETECTED (Not Detect.); NG PCR NOT DETECTED (Not Detect.)
[2023-01-29 08:48] LABS: Syphilis Screen Nonreactive (Nonreactive)
[2023-01-29 09:09] LABS: HIV AB/AG Nonreactive (Nonreactive); HIV Num 1 0.06 S/CO (0.00-0.99); ~HepC Num1 0.11 S/CO (0.00-0.79); ~Hepatitis C Antibody Nonreactive (Nonreactive)
[2023-01-29 15:39] LABS: BV Int Neg Control Negative (Negative); BV Int Pos Control Positive (Positive)
== END 2023-01-28 12:03 | disposition home or self-care (01) ==
LOC: HO.HHCL 12:02
PROVIDERS: Visit Provider Nurse Practitioner Primary Care
DX: R39.9 Unspecified symptoms and signs involving the genitourinary system (principal); R10.2 Pelvic and perineal pain; Z11.3 Encounter for screening for infections with a predominantly sexual mode of transmission
CPT/HCPCS: 0353U; 36415; 80053; 86780; 86803; 87086; 87389; 87480; 87510; 87660

== ENCOUNTER 2023-05-20 11:07 | Outpatient (REF) | payer MEDICAID, SELFPAY ==
--- NOTE | ~2023-05-20 | XR_ITS ---
EXAMINATION: XR KNEE, RIGHT CLINICAL INFORMATION: Knee pain COMPARISON: None available. TECHNIQUE: 3 views of the right knee. FINDINGS: No fracture or joint effusion. Alignment is anatomic. Joint spaces are maintained. No abnormal soft tissue calcification. A small lateral patellar osteophyte is noted. XR/XR knee RT 3V IMPRESSION: Small lateral patellar osteophyte. Otherwise unremarkable plain radiographs of the right knee.
--- NOTE | ~2023-05-20 | XR_ITS ---
EXAMINATION: XR LUMBOSACRAL SPINE CLINICAL INFORMATION: Low back pain COMPARISON: None available. TECHNIQUE: Three views of the lumbosacral spine. FINDINGS: The vertebral bodies and posterior elements are normal. The disc spaces are preserved and the vertebral alignment is normal. The paraspinal soft tissues are normal. The sacrum and sacroiliac joints are unremarkable. No radiopaque calculi are detected. XR/XR lumbar spine 2-3V IMPRESSION: Unremarkable plain radiographs of the lumbar spine.
[2023-05-20 13:14] LABS: MANUAL DIFF FLAG NO
[2023-05-20 13:48] LABS: Basophils Percent Auto 0.4 % (0-2); Eosinophils Absolute Auto 0.1 X10*3/uL (0.0-0.4); Eosinophils Percent Auto 1.5 % (0-4); Hematocrit 40.3 % (37.0-47.0); Hemoglobin 13.1 g/dl (12.0-16.0); Imm Gran Abs Auto 0.05 X10*3/uL (0.00-0.03); Imm Gran Pct Auto 0.5 % (0.0-0.4); Lymphocytes Absolute Auto 2.8 X10*3/uL (1.2-4.9); Mean Corpuscular HGB Conc 32.5 g/dl (31.0-35.0); Mean Corpuscular Hemoglobin 28.5 pg (27.0-33.0); Mean Corpuscular Volume 87.8 fL (80.0-98.0); Mean Platelet Volume 9.2 fL (9.4-12.3); Monocytes Absolute Auto 0.6 X10*3/uL (0.1-1.2); Monocytes Percent Auto 5.8 % (2-11); Neutrophils Percent Auto 62.8 % (45-73); Platelet Count 334 X10*3/uL (160-400); Red Blood Count 4.59 X10*6/uL (4.20-5.50); Red Cell Distribution Width 12.7 % (11.0-16.0); White Blood Count 9.5 X10*3/uL (4.8-10.8)
[2023-05-20 13:56] LABS: Estimated Average Glucose 103 mg/dL; Hemoglobin A1c % 5.2 % (<6.0)
[2023-05-20 14:23] LABS: Rheumatoid Factor < 13.0 IU/mL (<15.0)
[2023-05-20 14:24] LABS: Alanine Aminotransferase 14 U/L (0-31); Albumin Level 4.1 g/dL (3.5-5.0); Alkaline Phosphatase 59 U/L (39-117); Anion Gap 8 (12-20); Aspartate Amino Transferase 15 U/L (5-31); Bilirubin Total 0.5 mg/dL (0.0-1.0); Blood Urea Nitrogen 9 mg/dL (9-16); C Reactive Protein 0.19 mg/dL (< or = 0.50); Calcium 9.4 mg/dL (8.4-10.2); Carbon Dioxide 29 mmol/L (22-29); Chloride 108 mmol/L (96-108); Estimated Glomerular Filt Rate > 60; Glucose Random 80 mg/dL (60-115); Potassium 3.8 mmol/L (3.3-5.1); Sodium 141 mmol/L (135-145); Total Protein 7.4 g/dL (6.5-8.0)
[2023-05-20 14:28] LABS: Erythrocyte Sedimentation Rate 12 MM/HR (0-20)
[2023-05-26 10:45] LABS: Cyclic Citrullinated Peptide <16 UNITS
== END 2023-05-20 11:08 | disposition home or self-care (01) ==
LOC: HO.XRAY 11:07
PROVIDERS: PCP Nurse Practitioner Primary Care; Visit Provider Nurse Practitioner Family
DX: M25.561 Pain in right knee (principal); M25.562 Pain in left knee; R73.9 Hyperglycemia, unspecified; M54.50 Low back pain, unspecified; M53.86 Other specified dorsopathies, lumbar region; Z79.899 Other long term (current) drug therapy
CPT/HCPCS: 36415; 72100; 73562; 80053; 83036; 85025; 85652; 86140; 86200; 86431; 99212

== ENCOUNTER 2023-05-20 11:07 | Outpatient (AMB) | payer MEDICAID, SELFPAY ==
--- NOTE | 2023-05-20 11:10 | A.OFFVIS_ITS ---
Intake Vital Signs 05/20/23 11:12 Height 5 ft 5 in Weight 207 lb 14.334 oz BMI 34.6 BP 96/58 L Blood Pressure Location Lt brachial Position Sitting Pulse 70 Pulse Source Pulse Oximeter Temp 97 F Temp Source Skin Pulse Oximetry (%) 98 Oxygen Delivery Method Room Air Intake Visit Reasons: OA Intake Note: New patient referred by ortho, presents today for OA. Reports she was diagnosed with fibomyalgia by PCP. Beef Boner Required: Yes Beef Boner Language: Insurance Customer Service Specialist Name: Juan Carlos Doty Information Interpreted: clinical only Accompanied by: Self / Same As Patient Allergies aspirin [ASPIRIN] Allergy (Intermediate, Verified 05/20/23 11:14) RASH, shortness of breath HPI HPI Comments History of Present Illness Details Ms. MUIRLLO a 32-year-old female was referred by Ortho for initial evaluation of right knee pain after an x-ray shows osteoarthritis. The patient reports that she has been having the pain for many years now and it has gotten worse. She also reports pain to her bilateral ankles, shoulders. She states that she was diagnosed with fibromyalgia in the past. She takes Aleve and other cnwg-itp-maozkbj medications for the pain but gets minimal relief. Patient reports that she works at [employer] and is on her feet all day and that makes the pain worse. Her knee pain is also worse when she climbs stairs. She had had sessions of physical therapy that did not seem to help. She reports that the physical therapist told her her inner thigh tendons (adductor tendons)?were tight and stiff. Patient denies Raynaud's phenomenon, butterfly rash on face or other rashes; d enies photosensitivity - getting sick or developing a rash from being out in the sun; denies blood or froth in urine; patient denies hx of SOB, chest pain. Patient denies hx of Carditis or Pleuritis. Patient denies any history of DVT/PE. The patient reports never have had to take aspirin or a blood thinner during the successful pregnancies. Denies fevers, excessive fatigue, unexplained weight-loss or weight-gain Denies: thinning hair or hair loss, hx of rashes; Denies: dry, itchy eyes, red burning eyes needing steroids to treat; dry mouth, mouth sores or ulcers; nose bleed; ringing in the ear, Denies abdominal pain, blood or mucous in stool; nausea, vomiting and diarrhea , difficulty swallowing, heartburn. 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 External ear normal, canal clear and tympanic membrane normal. NOSE/SINUS:? Airflow through both nares, no nasal discharge, no bleeding THROAT:? Oral mucosa moist, no ulcerations NECK:? No thyromegaly or masses, no adenopathy, trachea midline. HEART:? Regular rhythm, S1-S2 heard, no murmurs, rubs or gallops. LUNG:? Clear to percussion and auscultation ABD:? Normal bowel sounds, no organomegaly, masses or tenderness. large EXTREMITIES:? No edema, no calf tenderness, normal peripheral pulses. NEURO:? Oriented and alert x3.? No focal weakness.? Reflexes symmetric.? Gait normal. SKIN:? There are no skin lesions evident. No objective signs of Raynaud's phenomenon. JOINT EXAM: Cervical Spine:.? Full range of motion without pain; no tenderness. Thoracic Spine:.? No scoliosis.? No tenderness on palpation. Lumbar Spine:.? Alignment normal.? Full range of motion without pain, some mild tenderness to palpation Chest Wall:.? No tenderness, swelling, increased warmth or erythema. Hands:.? Normal pain-free range of motion without tenderness, swelling, increased warmth or erythema. Able to make a full fist and has a good maintenance inspector strength. Wrists:.? Normal pain-free range of motion without tenderness, swelling, increased warmth or erythema. mild tenderness on palpation Elbows:. Normal pain-free range of motion without tenderness, swelling, increased warmth or erythema. Shoulders:.?? Full range of motion without pain. No tenderness, weakness, swelling, increased warmth or erythema. Hips:.? Full range of motion without pain. Hip bursa:.? mild bilateral tenderness. Knees:.?? Normal pain-free range of motion without swelling, increased warmth or erythema.? There is no effusion or crepitation. Tenderness to bilateral patellofemoral joint line Ankles:.? Normal pain-free range of motion without tenderness, swelling, increased warmth or erythema. Feet:.? Normal pain-free range of motion without tenderness, swelling, increased warmth or erythema. Tender points:? Tenderness to digital palpation at the occiput, trapezius, lateral epicondyle, knees, greater trochanter bilaterally. ? Assessment & Plan Assessment & Plan (1) Bilateral knee pain: Code(s): M25.561 - Pain in right knee; M25.562 - Pain in left knee Qualifiers: Chronicity: chronic Qualified Code(s): M25.561 - Pain in right knee; M25.562 - Pain in left knee; G89.29 - Other chronic pain (2) Patellofemoral arthritis of right knee: Code(s): M17.11 - Unilateral primary osteoarthritis, right knee (3) Lower back pain: Code(s): M54.50 - Low back pain, unspecified Qualifiers: Chronicity: chronic Back pain laterality: bilateral Sciatica presence: without sciatica Qualified Code(s): M54.50 - Low back pain, unspecified; G89.29 - Other chronic pain Plan #Bilateral Knee Pain: Ms. Resendiz is 32-year-old female here for evaluation of right knee pain. Based on thorough review of patient historic of records I have seen that patient had rheumatological work[place] [address] Gomez and serology was unrevealing. She also had multiple x-rays for knees, wrist and lower back, with unremarkable results. Based on initial review of patient's symptoms I do not think she has an underlying inflammatory or connective tissue process. There is no evidence on PE of an inflammatory process and patient denies episodes of red, warm, swollen joints and prolonged morning stiffness. I explained to patient that the knee and ankle pains seem mechanical in origin. Recent x-ray of her right knee shows mild patellofemoral arthritis. It PCP concerning that patient has had these joint concerns for the past 6 years. Started when she was fairly young and perhaps would not be suffering from osteoarthritis. Given that consideration I will prescribe her a course of prednisone and reassess to see if if there is improvement in her joint pain. I will also obtain updated inflammatory markers. Had also obtain an updated x-ray of her left knee and her lumbar. It is not unreasonable to in for that her weight is also factor in her knee pain. I discussed at length with patient that weight reduction can improve joint discomfort. #Low Back Pain: Will obtain updated xray. There is mild tenderness to palp ation. Encourage core exercises. Discussed that weak abdominal muscles can contribute to back pain Orders: Orders Erythrocyte Sedimentation Rate Today M25.561 - Pain in right knee, M25.562 - Pain in left knee Cyclic Citrullinated Peptide Today M25.561 - Pain in right knee, M25.562 - Pain in left knee Comprehensive Met. Panel Today M25.561 - Pain in right knee, M25.562 - Pain in left knee Hemoglobin A1c Today R73.9 - Hyperglycemia, unspecified XR lumbar spine 2-3V Today M53.86 - Other specified dorsopathies, lumbar region, M54.50 - Low back pain, unspecified XR knee LT 3V Today M25.562 - Pain in left knee C Reactive Protein Today M25.561 - Pain in right knee, M25.562 - Pain in left knee Complete Blood Count Auto Diff Today M25.561 - Pain in right knee, M25.562 - Pain in left knee, Z79.899 - Other longterm (current) drug therapy Rheumatoid Factor Today M25.561 - Pain in right knee, M25.562 - Pain in left knee XR knee RT 3V Today M25.562 - Pain in left knee Medications: New prednisone 3 tablets per day x 7 days; 2 tablets per day x 7 days 1 tablet per day x 7 days stop 50 tabs 0RF M25.561 - Pain in right knee, M25.562 - Pain in left knee, M54.50 - Low back pain, unspecified Coding Level of Care Code New Pt Level 4 (61626) Diagnoses Chronic pain of both knees M25.561; M25.562; G89.29 Chronicity: chronic Patellofemoral arthritis of right knee M17.11 Chronic bilateral low back pain without sciatica M54.50; G89.29 Chronicity: chronic Back pain laterality: bilateral Sciatica presence: without sciatica
[2023-05-20 11:12] VITALS: BP 96/58; PULSE 70; TEMP 36.1; O2SAT 98; BMI 34.6
== END 2023-05-20 12:04 | disposition home or self-care (01) ==
PROVIDERS: PCP Nurse Practitioner Primary Care; Visit Provider Nurse Practitioner Family
DX: M25.561 Pain in right knee (principal); M25.562 Pain in left knee; G89.29 Other chronic pain; M17.11 Unilateral primary osteoarthritis, right knee; M54.50 Low back pain, unspecified
CPT/HCPCS: 99204

== ENCOUNTER 2023-06-24 10:05 | Outpatient (AMB) | payer MEDICAID, SELFPAY ==
--- NOTE | 2023-06-24 10:08 | A.OFFVIS_ITS ---
Intake Vital Signs 06/24/23 10:12 Height 5 ft 5 in Weight 208 lb 5.389 oz BMI 34.7 BP 110/62 Blood Pressure Location Rt brachial Position Sitting Pulse 80 Pulse Source Pulse Oximeter Temp 97.6 F Temp Source Skin Pulse Oximetry (%) 97 Oxygen Delivery Method Room Air Intake Visit Reasons: Bilateral Knee Pain Intake Note: Patient last seen 05/20/23 by Marshall, presents today for follow up and test results. Reports not taking prednisone prescribed at last visit. Lead Refiner Required: Yes Lead Refiner Language: Human Resources Safety Manager Name: [id number] Alonzo Information Interpreted: clinical only Accompanied by: Self / Same As Patient Allergies aspirin [ASPIRIN] Allergy (Intermediate, Verified 06/24/23 10:08) RASH, shortness of breath HPI HPI Comments History of Present Illness Details Ms. Sandrine howe 32-year-old female returns for follow-up of initial evaluation of right knee pain after an x-ray shows osteoarthritis. Initial History Ms. Sandrine howe 32-year-old female was referred by Ortho for initial evaluation of right knee pain after an x-ray shows osteoarthritis. The patient reports that she has been having the pain for many years now and it has gotten worse. She also reports pain to her bilateral ankles, shoulders. She states that she was diagnosed with fibromyalgia in the past. She takes Aleve and other qlcx-pkd-holayiw medications for the pain but gets minimal relief. Patient reports that she works at [employer] and is on her feet all day and that makes the pain worse. Her knee pain is also worse when she climbs stairs. She has had sessions of physical therapy that did not seem to help. She reports that the physical therapist told her her inner thigh tendons (adductor tendons)?were tight and stiff. Patient denies Raynaud's phenomenon, butterfly rash on face or other rashes; denies photosensitivity - getting sick or developing a rash from being out in the sun; denies blood or froth in urine; patient denies hx of SOB, chest pain. Patient denies hx of Carditis or Pleuritis. Patient denies any history of DVT/PE. The patient reports never have had to take aspirin or a blood thinner during the successful pregnancies. Denies fevers, excessive fatigue, unexplained weight-loss or weight-gain Denies: thinning hair or hair loss, hx of rashes; Denies: dry, itchy eyes, red burning eyes needing steroids to treat; dry mouth, mouth sores or ulcers; nose bleed; ringing in the ear, Denies abdominal pain, blood or mucous in stool; nausea, vomiting and diarrhea , difficulty swallowing, heartburn. 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 Regular rhythm, S1-S2 heard, no murmurs, rubs or gallops. LUNG:? Clear to percussion and auscultation EXTREMITIES:? No edema, no calf tenderness, normal peripheral pulses. NEURO:? Oriented and alert x3.? No focal weakness.? Reflexes symmetric.? Gait normal. SKIN:? There are no skin lesions evident. No objective signs of Raynaud's phenomenon. JOINT EXAM: Hands:.? Normal pain-free range of motion without tenderness, swelling, increased warmth or erythema. Able to make a full fist and has a good branch logistics supervisor strength. Wrists:.? Normal pain-free range of motion without tenderness, swelling, increased warmth or erythema. mild tenderness on palpation Elbows:. Normal pain-free range of motion without tenderness, swelling, increased warmth or erythema. Shoulders:.?? Full range of motion without pain. No tenderness, weakness, swell ing, increased warmth or erythema. Hips:.? Full range of motion without pain. Hip bursa:.? mild bilateral tenderness. Knees:.?? Normal pain-free range of motion without swelling, increased warmth or erythema.? There is no effusion or crepitation. Tenderness to bilateral patellofemoral joint line Ankles:.? Normal pain-free range of motion without tenderness, swelling, increased warmth or erythema. Feet:.? Normal pain-free range of motion without tenderness, swelling, increased warmth or erythema. Tender points:? Tenderness to digital palpation at the occiput, trapezius, lateral epicondyle, knees, greater trochanter bilaterally. ? Results Reviewed Results Reviewed: Laboratory Tests 05/20/23 13:13 WBC 9.5 RBC 4.59 Hgb 13.1 ESR 12 BUN 9 Creatinine 0.75 Estimated GFR > 60 C-Reactive Protein 0.19 Rheumatoid Factor < 13.0 Cycl Citrul Peptide IgG <16 Assessment & Plan Assessment & Plan (1) Bilateral knee pain: Code(s): M25.561 - Pain in right knee; M25.562 - Pain in left knee Qualifiers: Chronicity: chronic Qualified Code(s): M25.561 - Pain in right knee; M25.562 - Pain in left knee; G89.29 - Other chronic pain (2) Patellofemoral arthritis of right knee: Code(s): M17.11 - Unilateral primary osteoarthritis, right knee (3) Lower back pain: Code(s): M54.50 - Low back pain, unspecified Qualifiers: Chronicity: chronic Back pain laterality: bilateral Sciatica presence: without sciatica Qualified Code(s): M54.50 - Low back pain, unspecified; G89.29 - Other chronic pain Plan Ms. Resendiz is 32-year-old female returns for follow-up to review diagnostics. Serology was negative for RF and CCP, ESR and CRP. Xrays of knees shows mild OA and low back is normal. Patient did not start Prednisone. She will do the three week course and report any improvement at next visit in 8 weeks. I discussed with patient possible side effects with the short term use of prednisone to include but not limited to increase appetite and weight-gain and insomnia. I recommend that she be mindful of overeating and not to take the medication close to bedtime if she finds that it gives her increased energy. Initial assessment #Bilateral Knee Pain: Ms. Resendiz is 32-year-old female here for evaluation of right knee pain. Based on thorough review of patient historic of records I have seen that patient had rheumatological workup back [place] [address] Goemz and serology was unrevealing. She also had multiple x-rays for knees, wrist and lower back, with unremarkable results. Based on initial review of patient's s ymptoms I do not think she has an underlying inflammatory or connective tissue process. There is no evidence on PE of an inflammatory process and patient denies episodes of red, warm, swollen joints and prolonged morning stiffness. I explained to patient that the knee and ankle pains seem mechanical in origin. Recent x-ray of her right knee shows mild patellofemoral arthritis. It is concerning that patient has had these joint concerns for the past 6 years. This started when she was fairly young and perhaps would not be suffering from osteoarthritis. Given that consideration I will prescribe her a course of prednisone and reassess to see if if there is improvement in her joint pain. I will also obtain updated inflammatory markers. Had also obtain an updated x-ray of her left knee and her lumbar. It is not unreasonable to in for that her weight is also factor in her knee pain. I discussed at length with patient that weight reduction can improve joint discomfort. #Low Back Pain: Will obtain updated xray. There is mild tenderness to palpation. Encourage core exercises. Discussed that weak abdominal muscles can contribute to back pain Coding Level of Care Code Est Pt Level 2 (84845) Diagnoses Chronic pain of both knees M25.561; M25.562; G89.29 Chronicity: chronic Patellofemoral arthritis of right knee M17.11 Chronic bilateral low back pain without sciatica M54.50; G89.29 Chronicity: chronic Back pain laterality: bilateral Sciatica presence: without sciatica
[2023-06-24 10:12] VITALS: BP 110/62; PULSE 80; TEMP 36.4; O2SAT 97; BMI 34.7
== END 2023-06-24 10:33 | disposition home or self-care (01) ==
PROVIDERS: PCP Nurse Practitioner Primary Care; Visit Provider Nurse Practitioner Family
DX: M25.561 Pain in right knee (principal); M25.562 Pain in left knee; G89.29 Other chronic pain; M17.11 Unilateral primary osteoarthritis, right knee; M54.50 Low back pain, unspecified
CPT/HCPCS: 99212

== ENCOUNTER → 2023-06-24 10:05 | Outpatient (BNVA) | payer MEDICAID, SELFPAY | PROVIDERS: PCP Nurse Practitioner Primary Care; Visit Provider Nurse Practitioner Family | DX: M25.561 Pain in right knee (principal); M25.562 Pain in left knee; M17.11 Unilateral primary osteoarthritis, right knee; M54.50 Low back pain, unspecified; G89.29 Other chronic pain | CPT/HCPCS: 99212 ==

== ENCOUNTER 2023-07-29 09:15 | Outpatient (REF) | payer MEDICAID, SELFPAY | END 2023-07-29 09:16 | disposition home or self-care (01) | LOC: HO.LNP 09:15 | PROVIDERS: PCP Nurse Practitioner Primary Care; Visit Provider Advanced Practice Midwife | DX: Z01.419 Encounter for gynecological examination (general) (routine) without abnormal findings (principal); Z87.42 Personal history of other diseases of the female genital tract | CPT/HCPCS: 0353U; 87480; 87510; 87624; 87660; 88142; 99395 ==

== ENCOUNTER 2023-07-29 09:15 | Outpatient (AMB) | payer MEDICAID, SELFPAY ==
[2023-07-29 09:17] VITALS: BP 124/70; BMI 34.6
--- NOTE | 2023-07-29 09:17 | MHC.OFFVIS ---
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 She has not sexually active for the last year but still wants to check on everything from before. She did have 1 abnormal Pap smear some years ago though her last 1 was negative we will repeat the Pap this time as well. She tries to eat well she works at [employer] so she knows she does eat some fast food but she tries to eat healthy at home she has fibromyalgia and arthritis but she had tried a medication and did not like the side effects at all she controls her pains with weed but she is very judicious in its use and it works for her. She will be making an appointment with her doctor soon. [facility] Medical History Sciatica associated with disorder of lumbar spine Lower back pain Left knee pain Bilateral knee pain Hemorrhoids Fibromyalgia Surgical History Tubal ligation status Family History Father Diabetes Mother Diabetes Social History Household Members: Children Alcohol intake: current Alcohol intake frequency: holidays/special occasions only Patient Tobacco Use Status: Never used Tobacco Substance Use Type: Marijuana Current occupational status: employed Current occupation: [employer] Female Reproductive History Menstrual Duration of menses: 3-5 days Date of last menstrual period: 07/14/23 control method: permanent sterilization (tubal ligation) Permanent Sterilization: BTL Total pregnancies: 4 Full term: 3 Number of Living Children: 3 Ab induced: 1 Date of last pap smear: 06/05/22 History of abnormal pap smear: Yes (HPV 12/2/21) Date of Mammogram: 06/26/20 Physical Exam Vital Signs: Last Vital Signs BP 124/70 07/29/23 09:17 BMI result Body Mass Index 34.6 Const General: healthy appearing, comfortable, no acute distress, well developed and alert Nutritional Appearance: average body habitus Orientation/consciousness: patient oriented x3 Limitations: no limitations HEENT Head: Yes normocephalic Neck Neck: Yes normal visual inspection Chest Chest palpation & inspection: normal inspection of the chest Breast/axilla inspection: normal inspection of the breasts and normal inspection of the axillae Breast/axilla palpation: normal palpation of the breasts and normal palpation of the axillae Resp Effort & Inspection: normal respiratory effort GI Inspection: Yes normal to inspection, No Abdominal wall edema and No distended Palpation (GI): Soft to palpation and nontender Other: Normal speculum exam vagina pink and moist normal discharge cervix multiparous pink smooth mobile nontender uterus anteverted mobile nontender adnexa nontender not enlarged good tone with Kegel. Patient also has scar from her 1st delivery delivered her 2nd 2 vaginally. General: Yes bladder normal to palpation External Female Exam: normal external appearance and normal appearance of the urethra Speculum Exam - Vagina: normal appearance of the vagina, normal palpation and normal vaginal discharge Speculum Exam - Cervix: normal appearance of the cervix, normal palpation and nontender Bimanual exam- vagina & uterus: normal bimanual exam, normal palpation, uterine size normal, bladder normal to palpation, consistency normal, normal palpation, uterine mobility normal, uterine shape normal, No Cervical tenderness present, non-tender and no cervical motion tenderness Bimanual Exam- Adnexa, other: normal adnexae, no masses, normal and No adnexal tenderness Neuro General: patient oriented x3 Assessment & Plan Assessment & Plan (1) Well woman exam with routine gynecological exam: Code(s): Z01.419 - Encounter for gynecological examination (general) (routine) without abnormal findings (2) Hx of abnormal cervical Pap smear: Comment: History positive HPV 2020 negative Pap in 2021 Pap repeated 07/29/2023. Code(s): Z87.42 - Personal history of other diseases of the female genital tract (3) Encounter for screening examination for sexually transmitted disease: Code(s): Z11.3 - Encounter for screening for infections with a predominantly sexual mode of transmission Plan -----Discussed in this visit the following: healthy balanced diet, regular and consistent exercise, getting recommended health screens, doing the best she can for her particular health concerns, kegel exercises, pap smear screening and followup recommendations, mammography screening and SBE, normal changes in cycles in her life stage--- . Reviewed her health in general reviewed awareness of healthy eating which will help guide her choices and which has been helping to guide her so far she is being judicious in all of her self-care. Labs ordered and she will go get them and she is on the portal and we will see her in a year. Orders: Orders HIV Ab/Ag Today Z01.419 - Encounter for gynecological examination (general) (routine) without abnormal findings, Z11.3 - Encounter for screening for infections with a predominantly sexual mode of transmission, Z87.42 - Personal history of other diseases of the female genital tract Syphilis Screen Today Z01.419 - Encounter for gynecological examination (general) (routine) without abnormal findings, Z11.3 - Encounter for screening for infections with a predominantly sexual mode of transmission, Z87.42 - Personal history of other diseases of the female genital tract Bacterial Vaginosis Panel Today Z01.419 - Encounter for gynecological examination (general) (routine) without abnormal findings CT NG by PCR Today [id number] - Encounter for gynecological examination (general) (routine) without abnormal findings Pap Smear Today Z01.419 - Encounter for gynecological examination (general) (routine) without abnormal findings Hepatitis B Surface Antigen Today Z01.419 - Encounter for gynecological examination (general) (routine) without abnormal findings, Z11.3 - Encounter for screening for infections with a predominantly sexual mode of transmission, Z87.42 - Personal history of other diseases of the female genital tract Hepatitis C Antibody Today Z01.419 - Encounter for gynecological examination (general) (routine) without abnormal findings, Z11.3 - Encounter for screening for infections with a predominantly sexual mode of transmission, Z87.42 - Personal history of other diseases of the female genital tract Coding Level of Care Code Est Pt Prev Care 18-39y(49979) Diagnoses Well woman exam with routine gynecological exam Z01.419 Hx of abnormal cervical Pap smear Z87.42 Encounter for screening examination for sexually transmitted disease Z.3
== END 2023-07-29 10:20 | disposition home or self-care (01) ==
LOC: HO.HWS 09:15
PROVIDERS: PCP Nurse Practitioner Primary Care; Visit Provider Advanced Practice Midwife
DX: Z01.419 Encounter for gynecological examination (general) (routine) without abnormal findings (principal); Z87.42 Personal history of other diseases of the female genital tract; Z11.3 Encounter for screening for infections with a predominantly sexual mode of transmission
CPT/HCPCS: 99395

== ENCOUNTER 2023-07-29 11:02 | Outpatient (REF) | payer MEDICAID, SELFPAY ==
[2023-07-30 11:23] LABS: CT PCR NOT DETECTED (Not Detect.); NG PCR NOT DETECTED (Not Detect.)
[2023-07-30 13:54] LABS: BV Int Neg Control Negative (Negative); BV Int Pos Control Positive (Positive)
[2023-08-05 12:38] LABS: HPV mRNA E6/E7 rflx Not Detected (Not Detected)
== END 2023-07-29 11:03 | disposition home or self-care (01) ==
LOC: HO.HHCL 11:02
PROVIDERS: Visit Provider Advanced Practice Midwife
DX: Z01.419 Encounter for gynecological examination (general) (routine) without abnormal findings (principal)
CPT/HCPCS: 0353U; 87480; 87510; 87624; 87660

== ENCOUNTER 2023-07-30 08:41 | Outpatient (REF) | payer MEDICAID, SELFPAY ==
[2023-07-30 12:34] LABS: Syphilis Screen Nonreactive (Nonreactive)
[2023-07-30 12:51] LABS: HBsAGNum1 0.42 S/CO (0.00-0.99); HIV AB/AG Nonreactive (Nonreactive); HIV Num 1 0.12 S/CO (0.00-0.99); Hepatitis B Surface Antigen Negative (Negative); ~HepC Num1 0.16 S/CO (0.00-0.79); ~Hepatitis C Antibody Nonreactive (Nonreactive)
== END 2023-07-30 08:42 | disposition home or self-care (01) ==
LOC: HO.HHCL 08:41
PROVIDERS: Visit Provider Advanced Practice Midwife
DX: Z11.4 Encounter for screening for human immunodeficiency virus [HIV] (principal); Z11.3 Encounter for screening for infections with a predominantly sexual mode of transmission; Z87.42 Personal history of other diseases of the female genital tract
CPT/HCPCS: 36415; 86780; 86803; 87340; 87389

== ENCOUNTER 2023-08-26 15:54 | Outpatient (AMB) | payer MEDICAID, SELFPAY ==
--- NOTE | 2023-08-26 15:55 | MHC.OFFVIS ---
Intake Visit Reasons: bilateral knee pain Intake Note: Patient scheduled today for a telehealth visit following up on alycia knee pain. 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 Sandrine howe 32-year-old female returns for follow-up of initial evaluation of right knee pain after an x-ray shows osteoarthritis. Initial History Ms. Sandrine howe 32-year-old female was referred by Ortho for initial evaluation of right knee pain after an x-ray shows osteoarthritis. The patient reports that she has been having the pain for many years now and it has gotten worse. She also reports pain to her bilateral ankles, shoulders. She states that she was diagnosed with fibromyalgia in the past. She takes Aleve and other [id number] medications for the pain but gets minimal relief. Patient reports that she works at [employer] and is on her feet all day and that makes the pain worse. Her knee pain is also worse when she climbs stairs. She has had sessions of physical therapy that did not seem to help. She reports that the physical therapist told her her inner thigh tendons (adductor tendons)?were tight and stiff. Patient denies Raynaud's phenomenon, butterfly rash on face or other rashes; denies photosensitivity - getting sick or developing a rash from being out in the sun; denies blood or froth in urine; patient denies hx of SOB, chest pain. Patient denies hx of Carditis or Pleuritis. Patient denies any history of DVT/PE. The patient reports never have had to take aspirin or a blood thinner during the successful pregnancies. Denies fevers, excessive fatigue, unexplained weight-loss or weight-gain Denies: thinning hair or hair loss, hx of rashes; Denies: dry, itchy eyes, red burning eyes needing steroids to treat; dry mouth, mouth sores or ulcers; nose bleed; ringing in the ear, Denies abdominal pain, blood or mucous in stool; nausea, vomiting and diarrhea , difficulty swallowing, heartburn. [facility] Medical History (Updated 09/02/23 @ 12:47 by REBEL Acosta-CYNDY) Pain of plantar aspect of heel Ankle pain, right Sciatica associated with disorder of lumbar spine Lower back pain Left knee pain Bilateral knee pain Hemorrhoids Fibromyalgia Surgical History Tubal ligation status Family History Father Diabetes Mother Diabetes Social History Household Members: Children Alcohol intake: current Alcohol intake frequency: holidays/special occasions only Patient Tobacco Use Status: Never used Tobacco Substance Use Type: Marijuana Current occupational status: employed Current occupation: [employer] Review of Systems Const All systems reviewed & are unremarkable except as noted in HPI and below Physical Exam APPEARANCE: Patient in no acute distress; well nourished, groomed EYES no redness, eyelids normal HEART:? Regular rhythm, S1-S2 heard, no murmurs, rubs or gallops. LUNG:? Clear to percussion and auscultation EXTREMITIES:? No edema, no calf tenderness, normal peripheral pulses. NEURO:? Oriented and alert x3.? No focal weakness.? Reflexes symmetric.? Gait normal. SKIN:? There are no skin lesions evident. No objective signs of Raynaud's phenomenon. JOINT EXAM: Hands:.? Normal pain-free range of motion without tenderness, swelling, increased warmth or erythema. 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 Wrists:.? Normal pain-free range of motion without tenderness, swelling, increased warmth or erythema. mild tenderness on palpation Elbows:. Normal pain-free range of motion without tenderness, swelling, increased warmth or erythema. Shoulders:.?? Full range of motion without pain. No tenderness, weakness, swelling, increased warmth or erythema. Hips:.? Full range of motion without pain. Hip bursa:.? mild bilateral tenderness. Knees:.?? Normal pain-free range of motion without swelling, increased warmth or erythema.? There is no effusion or crepitation. Tenderness to bilateral patellofemoral joint line Ankles:.? Normal pain-free range of motion without tenderness, swelling, increased warmth or erythema. Feet:.? Normal pain-free range of motion with Right mild tenderness and heel plantar tenderness but no swelling, increased warmth or erythema. Tender points:? Tenderness to digital palpation at the occiput, trapezius, lateral epicondyle, knees, greater trochanter bilaterally. ? Telehealth Telehealth Location of provider rendering services: practice address Location of patient: address on file Patient Identification confirmed using: Name, : Yes Telehealth method: voice only Patient verbally consented to treatment: Yes Patient verbally consented to billing insurance company: Yes Patient informed of any privacy concerns related to visit: Yes Results Reviewed Results Reviewed: Laboratory Tests 05/20/23 13:13 WBC 9.5 RBC 4.59 Hgb 13.1 ESR 12 BUN 9 Creatinine 0.75 Estimated GFR > 60 C-Reactive Protein 0.19 Rheumatoid Factor < 13.0 Cycl Citrul Peptide IgG <16 Assessment & Plan Assessment & Plan (1) Bilateral knee pain: Code(s): M25.561 - Pain in right knee; M25.562 - Pain in left knee Category: Medical Qualifiers: Chronicity: chronic Qualified Code(s): M25.561 - Pain in right knee; M25.562 - Pain in left knee; G89.29 - Other chronic pain (2) Patellofemoral arthritis of right knee: Code(s): M17.11 - Unilateral primary osteoarthritis, right knee Category: Medical (3) Lower back pain: Code(s): M54.50 - Low back pain, unspecified Category: Medical Qualifiers: Back pain laterality: bilateral Chronicity: chronic Sciatica presence: without sciatica Qualified Code(s): M54.50 - Low back pain, unspecified; G89.29 - Other chronic pain (4) Ankle pain, right: Code(s): M25.571 - Pain in right ankle and joints of right foot Category: Medical Qualifiers: Chronicity: chronic Qualified Code(s): M25.571 - Pain in right ankle and joints of right foot; G89.29 - Other chronic pain (5) Pain of plantar aspect of heel: Code(s): M79.673 - Pain in unspecified foot Category: Medical Plan Ms. Resendiz is 32-year-old female returns for follow-up to review diagnostics. Serology was negative for RF and CCP, ESR and CRP. Xrays of knees shows mild OA and low back xray is normal. She did not find much improvement on the prednisone although she took it only for a few days. We discussed that I do not think her symptoms are from an inflammatory arthritis. She continues with right ankle pain and tenderness to the plantar aspect of the heel and may benefit from Podiatry evaluation so I will send a referral. Patient will call the office for appt as needed. Initial assessment #Bilateral Knee Pain: Ms. Resendiz is 32-year-old female here for evaluation of right knee pain. Based on thorough review of patient historic of records I have seen that patient had rheumatological workup back in [address] Gomez and serology was unrevealing. She also had multiple x-rays for knees, wrist and lower back, with unremarkable results. Based on initial review of patient's symptoms I do not think she has an underlying inflammatory or connective tissue process. There is no evidence on PE of an inflammatory process and patient denies episodes of red, warm, swollen joints and prolonged morning stiffness. I explained to patient that the knee and ankle pains seem mechanical in origin. Recent x-ray of her right knee shows mild patellofemoral arthritis. It is concerning that patient has had these joint concerns for the past 6 years. This started when she was fairly young and perhaps would not be suffering from osteoarthritis. Given that consideration I will prescribe her a course of prednisone and reassess to see if if there is improvement in her joint pain. I will also obtain updated inflammatory markers. Had also obtain an updated x-ray of her left knee and her lumbar. It is not unreasonable to in for that her weight is also factor in her knee pain. I discussed at length with patient that weight reduction can improve joint discomfort. #Low Back Pain: Will obtain updated xray. There is mild tenderness to palpation. Encourage core exercises. Discussed that weak abdominal muscles can contribute to back pain Orders: Referrals Podiatry Referral M25.571 - Pain in right ankle and joints of right foot, M79.673 - Pain in unspecified foot Coding Level of Care Code Est Pt Level 3 (19203) Diagnoses Chronic pain of both knees M25.561; M25.562; G89.29 Chronicity: chronic Patellofemoral arthritis of right knee M17.11 Chronic bilateral low back pain without sciatica M54.50; G89.29 Back pain laterality: bilateral Chronicity: chronic Sciatica presence: without sciatica Chronic pain of right ankle M25.571; G89.29 Chronicity: chronic Pain of plantar aspect of heel M79.368
--- OUTSIDE RECORDS SUMMARY | 2023-08-26 15:56 | XMS_ITS | Continuity of Care Document ---
Author Organization [facility] Caitlyn [email or web address] [facility] Address [address] [place] [address], [address] [place] [address]- Care Team Providers Care Food And Beverage Controller Name Role Phone Chelsi Gilmore NP Primary Care Physician [phone] Encounter [facility] [id number] Date(s): 10/22/22 - 11/21/22 [facility] Arias[facility] [address] [facility], [address] [place], [place] [address] Attending Physician: Darshan Hunter Admitting Physician: AdmDarshan hills Referring Physician: AdmtrDarshan Allergies, Adverse Reactions, Alerts Substance Reaction Severity Status aspirin Active Immunizations Given and Recorded Vaccine Date Status Refusal Reason Measles/Mumps/Rubella Virus Vaccine 03/25/15 Given tetanus/diphtheria/pertussis, acel(Tdap) 01/13/15 Given Medications Magnesium Carbonate = 54 mg, By Mouth, Daily, 0 Refills, Maintenance, 10/22/22 13:20:00 EDT, Partial fill upon patient request if the prescription is for a schedule II opioid drug. Start Date: 10/22/22 Status: Ordered Problem List Condition Confirmation Course Effective Dates Status Health St atus Informant Fibromyalgia Confirmed 12/25/17 Active Previous section Confirmed Active Heart murmur Confirmed Active Mixed anxiety and depressive disorder Confirmed 03/29/16 Active Obese class II Confirmed Active Obesity Confirmed 07/30/17 Active Reactive airway disease Confirmed 05/10/16 Active Need for immunization against rubella Confirmed Active Social History Social History Type Response Smoking Status Former smoker; Type: Cigarettes entered on: 12/01/14 Sex Patient Care team information Care Team Personnel Name: Chelsi Gilmore NP Position: S Outreach Member Role: PCP Address: Address: [address] [place] [address], [place] [address]- Care Team Related Persons Name: RAGHU ARSHAD Address: home [address] [address] Name: MAGGIE BURCH
== END 2023-08-27 10:26 | disposition home or self-care (01) ==
LOC: HO.RHE 15:54
PROVIDERS: PCP Nurse Practitioner Primary Care; Visit Provider Nurse Practitioner Family
DX: M25.561 Pain in right knee (principal); M25.562 Pain in left knee; G89.29 Other chronic pain; M17.11 Unilateral primary osteoarthritis, right knee; M54.50 Low back pain, unspecified; M25.571 Pain in right ankle and joints of right foot; M79.673 Pain in unspecified foot
CPT/HCPCS: 99213

== ENCOUNTER → 2023-08-26 15:54 | Outpatient (BNVA) | payer MEDICAID, SELFPAY | PROVIDERS: PCP Nurse Practitioner Primary Care; Visit Provider Nurse Practitioner Family | DX: M25.561 Pain in right knee (principal); M25.562 Pain in left knee; M17.11 Unilateral primary osteoarthritis, right knee; M54.50 Low back pain, unspecified; M25.571 Pain in right ankle and joints of right foot; M79.673 Pain in unspecified foot; G89.29 Other chronic pain | CPT/HCPCS: 99212 ==

== ENCOUNTER 2024-02-27 14:32 | Outpatient (REF) | payer MEDICAID, SELFPAY ==
[2024-02-27 16:42] LABS: Estimated Average Glucose 103 mg/dL; Hemoglobin A1C 103.0208 umol/L; Hemoglobin A1c % 5.2 % (<6.0); Total Hemoglobin (HGBA1C) 3115.7252 umol/L
[2024-02-27 17:03] LABS: Alanine Aminotransferase 17 U/L (0-31); Alkaline Phosphatase 60 U/L (39-117); Anion Gap 9 (12-20); Aspartate Amino Transferase 17 U/L (5-31); Bilirubin Total 0.3 mg/dL (0.0-1.0); Blood Urea Nitrogen 9 mg/dL (9-16); Calcium 9.4 mg/dL (8.4-10.2); Carbon Dioxide 27 mmol/L (22-29); Chloride 107 mmol/L (96-108); Cholesterol 165 mg/dL (<200); Estimated Glomerular Filt Rate > 60; Glucose Random 66 mg/dL (60-115); HDL Cholesterol 42 mg/dL (>40); LDL Cholesterol Calculated 105 mg/dL (<100); Potassium 4.1 mmol/L (3.3-5.1); Sodium 139 mmol/L (135-145); Total Protein 7.2 g/dL (6.5-8.0); Triglycerides 93 mg/dL (<150)
[2024-02-27 17:05] LABS: TSH reflex Free T4 0.79 uIU/mL (0.32-4.0)
[2024-02-27 17:26] LABS: Vitamin B12 599 pg/mL (200-900)
[2024-02-28 14:39] LABS: Bacterial Vaginosis PCR POSITIVE (Negative); Candida Group PCR NOT DETECTED (Not Detect); Candida glab krusei PCR NOT DETECTED (Not Detect); Trichomonas vaginalis PCR NOT DETECTED (Not Detect)
[2024-02-29 03:52] LABS: HIV AB/AG Nonreactive (Nonreactive); HIV Num 1 0.05 S/CO (0.00-0.99); ~HepC Num1 0.35 S/CO (0.00-0.79); ~Hepatitis C Antibody Nonreactive (Nonreactive)
[2024-03-03 21:08] LABS: RPR Rapid Plasma Reagin NON-REACTIVE (NON-REACTIVE)
== END 2024-02-27 14:33 | disposition home or self-care (01) ==
LOC: HO.HHCL 14:32
PROVIDERS: Visit Provider Nurse Practitioner Primary Care
DX: R74.01 Elevation of levels of liver transaminase levels (principal); R41.3 Other amnesia; Z11.3 Encounter for screening for infections with a predominantly sexual mode of transmission; R73.9 Hyperglycemia, unspecified
CPT/HCPCS: 0352U; 36415; 80053; 80061; 82607; 83036; 84443; 86592; 86803; 87389

== ENCOUNTER 2024-03-19 10:08 | Outpatient (AMB) | payer MEDICAID, SELFPAY ==
--- NOTE | 2024-03-19 10:05 | MHC.OFFVIS ---
Vital Signs 03/19/24 10:16 Height 5 ft 5 in Weight 209 lb BMI 34.8 BP 122/70 Intake Visit Reasons: severe cramps Information Interpreted: clinical only Habitat Management Coordinator: Habitat Management Coordinator Present Allergies aspirin [ASPIRIN] Allergy (Intermediate, Verified 03/19/24 10:19) RASH, shortness of breath Is last menstrual period known: Yes Last menstrual period: 03/04/24 HPI HPI severe cramps: Details: Says she is here because she is having severe cramps she thinks she is ovulating now because what her tells her her LMP 03/04/2024. She has not been sexually active in the last 6 months she said she recently got checked by her doctor and do self swabs and they showed BV and she has used boric acid couple of times and thought it helped with the odor. She denies any dysuria or cramping before urinating or other difficulty with urination other than if she sneezes she sometimes leaks. She is wondering about if something is wrong inside because she does not think it is normal to cramp with ovulation and then before her period. 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 She is also taking a 14 day colon cleanse herbal supplement that she got online preparation for starting a diet. I recommend she review this with her primary care provider. [facility] Medical History Pain of plantar aspect of heel Ankle pain, right Sciatica associated with disorder of lumbar spine Lower back pain Left knee pain Bilateral knee pain Hemorrhoids Fibromyalgia Surgical History Tubal ligation status Family History Father Diabetes Mother Diabetes Social History Household Members: Children Alcohol intake: current Alcohol intake frequency: holidays/special occasions only Patient Tobacco Use Status: Never used Tobacco Substance Use Type: Marijuana Current occupational status: employed Current occupation: [employer], [employer] Reproductive History Menstrual Duration of menses: 3-5 days Date of last menstrual period: 10/24/24 control method: permanent sterilization Total pregnancies: 3 Full term: 3 Date of last pap smear: 07/31/23 (negative) Physical Exam Vital Signs: Last Vital Signs BP 122/70 03/19/24 10:16 BMI result Body Mass Index 34.8 Other: External exam within vagina pink and moist cervix multiparous pink moist discharge scant whitish yellow more consistent with luteal phase ovulation as she suspects cervix mobile nontender uterus midposition mobile the adnexa nontender nothing tender on exam though she said it bothered her. External Female Exam: normal external appearance Speculum Exam - Vagina: normal appearance of the vagina and normal vaginal discharge Speculum Exam - Cervix: normal appearance of the cervix Bimanual exam- vagina & uterus: normal bimanual exam, uterine size normal, consistency normal, uterine mobility normal, uterine shape normal and non-tender Bimanual Exam- Adnexa, other: normal adnexae, no masses and No adnexal tenderness Assessment & Plan Assessment & Plan (1) Pelvic pain: Comment: Cramping midcycle and premenstrual. Code(s): R10.2 - Pelvic and perineal pain Category: Medical Plan I reviewed that sometimes symptoms that happen normally throughout the menstrual cycle can more exacerbated over time and many women complain more uncomfortable ovulation and premenstrual cramping as they get older. Pelvic exam was completely benign and normal patient was not tender at her bladder nor anywhere actually she had extremely good tone with Kegel. Will obtain pelvic ultrasound to reassure patient but I do not expect pathology we will have a visit afterwards to review testing done for STIs but her discharge was completely clear though not consistent with ovulation as she suspicious of. We will follow-up after the ultrasound. Urine specimen was obtained but discarded as patient denied any urinary symptoms whatsoever. Orders: Orders US pelvic and transvaginal Today R10.2 - Pelvic and perineal pain CT NG by PCR Today N89.8 - Other specified noninflammatory disorders of vagina, R10.2 - Pelvic and perineal pain Bacterial Vaginosis Panel Today N89.8 - Other specified noninflammatory disorders of vagina, R10.2 - Pelvic and perineal pain Coding Level of Care Code Est Pt Level 3 (41502) Diagnoses Pelvic pain R10.2
[2024-03-19 10:16] VITALS: BP 122/70; BMI 34.8
== END 2024-03-19 11:41 | disposition home or self-care (01) ==
PROVIDERS: PCP Nurse Practitioner Primary Care; Visit Provider Advanced Practice Midwife
DX: R10.2 Pelvic and perineal pain (principal)
CPT/HCPCS: 99213

== ENCOUNTER 2024-03-19 10:08 | Outpatient (REF) | payer MEDICAID, SELFPAY ==
[2024-03-20 05:30] LABS: CT PCR NOT DETECTED (Not Detect.); NG PCR NOT DETECTED (Not Detect.)
[2024-03-20 08:08] LABS: Bacterial Vaginosis PCR POSITIVE (Negative); Candida Group PCR NOT DETECTED (Not Detect); Candida glab krusei PCR NOT DETECTED (Not Detect); Trichomonas vaginalis PCR NOT DETECTED (Not Detect)
== END 2024-03-19 10:09 | disposition home or self-care (01) ==
LOC: HO.LAB 10:08
PROVIDERS: PCP Nurse Practitioner Primary Care; Visit Provider Advanced Practice Midwife
DX: N89.8 Other specified noninflammatory disorders of vagina (principal); R10.2 Pelvic and perineal pain
CPT/HCPCS: 0352U; 87491; 87591; 99212

== ENCOUNTER 2024-03-25 16:10 | Outpatient (REF) | payer MEDICAID, SELFPAY | END 2024-03-25 16:11 | disposition home or self-care (01) | LOC: HO.US 16:10 | PROVIDERS: PCP Nurse Practitioner Primary Care; Visit Provider Advanced Practice Midwife | DX: R10.2 Pelvic and perineal pain (principal) | CPT/HCPCS: 76830; 76856 ==

== ENCOUNTER → 2024-05-13 09:05 | Outpatient (REF) | payer MEDICAID, SELFPAY | LOC: HO.SL 09:05 | PROVIDERS: PCP Nurse Practitioner Primary Care; Visit Provider Nurse Practitioner Primary Care | DX: R40.0 Somnolence (principal) | CPT/HCPCS: 95806 ==

== ENCOUNTER → 2024-05-13 19:00 | Outpatient (BNV) | payer MEDICAID, SELFPAY | PROVIDERS: PCP Nurse Practitioner Primary Care; Visit Provider Internal Medicine | DX: R06.83 Snoring (principal); G47.10 Hypersomnia, unspecified | CPT/HCPCS: 95806 ==

== ENCOUNTER → 2024-06-09 15:15 | Outpatient (BNVA) | payer MEDICAID, SELFPAY | PROVIDERS: PCP Nurse Practitioner Primary Care; Visit Provider Advanced Practice Midwife ==

== ENCOUNTER 2024-06-25 14:04 | Outpatient (REF) | payer MEDICAID, SELFPAY ==
--- OUTSIDE RECORDS SUMMARY | 2024-06-25 14:07 | XMS_ITS | Encounter Summary ---
Author Organization [facility] Address [address] [facility] [address] [place] [address] Care Team Providers Care Emergency Department Name Role Phone Chelsi Gilmore Primary Care Provider Reason for Visit * Reason Comments Pre-visit Planning SDOH Screening negat kwame and Tobacco screening negative Encounter Details Date Type Department Care Team (Late st Contact Info) Description 06/11/2024 Patient Outreach [facility] [address] [place], [place] [phone] Chelsi Gilmore ANP [address] [place] [address] Pre-visit Planning (SDOH Screening negative and Tobacco screening negative) Social History Tobacco Use Types Packs/Day Years Used Date Smoking Tobacco: Former Passive Smoke Exposure: Never Smokeless Tobacco: Never Alcohol Use Standard Drinks/Week Comments Never 0 (1 standard drink = 0.6 oz pur e alcohol) Depression Answer Date Recorded Patient Health Questionnaire-9 Score 4 10/01/2022 Housing Stability Answer Date Recorded What is your housing situation today? I have renee galindo 02/13/[address] you li ve. Do you have problems with any of the following? None of the above 02/13/2024 Food Insecurity Answer Date Recorded Within the past 12 months, y ou worried that your food would run out before you got money to buy more: Never True 02/13/2024 Within the past 12 months,th e food you bought just didn't last and you didn't have enough money to get more: Never True 08/2023 Transportation Answer Date Recorded In the past 12 months, has l ack of transportation kept you from medical appts, meetings, work or from getting things needed for daily living? No 02/13/2024 Utilities Answer Date Recorded In the past 12 months, has t he electric, gas, oil or water company threatened to shut off services in your home? No 02/13/2024 Depression Answer Date Recorded Patient Health Questionnaire-2 Score 0 10/01/2022 Internet Access Answer Date Recorded Internet Access Q1 Yes 02/13/2024 Internet Access Q2 Not on file 02/13/2024 Comments No Sex and Gender Information Value Date Recorded Sex Assigned at Female 03/11/2022 10:26 AM EDT Legal Sex Female 10:26 AM EDT Gender Identity Female 03/11/2022 10:26 AM EDT Sexual Orientation Straight 03/11/2022 10 :26 AM EDT documented as of this encounter Progress Notes * Asha Bajwa - 06/11/2024 10:50 AM EST MINDA Radford placed successful outbound call to patient for pre-visit planning. Patient name and confirmed. Patient confirms appt date and time, and has transportation arrangements. Biggest concern for appointment at this time is would like to get a exam/ test to see if she has endometriosis. Patient advised to bring to appointment a photo id and insurance card. Appropriate screenings completed in anticipation of appointment. documented in this encounter Plan of Treatment Not on file documented as of this encounter Visit Diagnoses Not on filedocumented in this encounter Additional Health Concerns Assessment Noted Time PHQ-9 Depression Total Score: 4 10/02/19 23 2:23 PM EDT documented as of this encounter Care Teams Emergency Department Relationship Specialty Start Date End Date Chelsi Gilmore ANP [address] [place] [phone] PCP - General Family Medicine 05/26/20 documented as of this encounter
--- OUTSIDE RECORDS SUMMARY | 2024-06-25 14:07 | XMS_ITS | Encounter Summary ---
Author Organization [facility] Address [address] [facility] 7[address] [place] [address] Care Team Providers Care Heating Plant Superintendent Name Role Phone Chelsi Gilmore Primary Care Provider [phone] Reason for Visit * Reason Comments CHW - Office Visit Encounter Details Date Type Department Care Team (Late st Contact Info) Description 06/25/2024 1:00 PM EST Office Visit [facility] [address] [place], [place] [phone] Chelsi Gilmore ANP [address] [place], [place] [phone] Fatigue, unspecified type (Primary Dx); Daytime somnolence; Dry mouth; Mixed anxiety and depressive disorder; Vitamin D deficiency; Screening examination for STI; Dietary counseling; Exercise counseling Social History Tobacco Use Types Packs/Day Years Used Date Smoking Tobacco: Former Passive Smoke Exposure: Never Smokeless Tobacco: Never Tobacco Cessation:Counseling Given: Not Answered Alcohol Use Standard Drinks/Week Comments Never 0 [...] AM EDT documented as of this encounter Last Filed Vital Signs Vital Sign Reading Time Taken Comments Blood Pressure 112/69 06/25/2024 1:13 PM EST Pulse 68 06/25/2024 1:13 PM EST Temperature 36.6 ??C (97.9 ??F) 06/25/2024 1:13 PM ES T Respiratory Rate 12 06/25/2024 1:13 PM EST Oxygen Saturation 99% 06/25/2024 1:13 PM EST Inhaled Oxygen Concentration - - Weight 96.5 kg (212 lb 12.8 oz) 06/25/2024 1:13 PM EST Height - - Body Mass Index 35.41 02/27/2024 1:36 PM EDT documented in this encounter Plan of Treatment Scheduled Orders Name Type Priority Associated Diagnoses Orde r Schedule CBC auto differential Lab Routine Fatigue, unspecified type Expected: 06/25/2024 (Approximate), Expires: 06/25/2025 Hemoglobin A1c Lab Routine Fatigue, unspecified type Expected: 06/25/2024 (Approximate), Expires: 06/25/2025 HIV-1/2 Antigen and Antibodies, Fourth Generation, with Reflexes Lab Routine Screening examination for STI Expected: 06/25/2024 (Approximate), Expires: 06/25/2025 RPR (Monitor) with Reflex to??Titer Lab Routine Screening examination for STI Expected: 06/25/2024 (Approximate), Expires: 06/25/2025 Hepatitis C Antibody with Reflex to HCV, RNA, Quantitative, Real-Time PCR Lab Routine Screening examination for STI Expected: 06/25/2024 (Approximate), Expires: 06/25/2025 Chlamydia/N. Gonorrhoeae RNA, TMA, Urogenitial Microbiology Routine Screening examination for STI Expected: 06/25/2024 (Approximate), Expires: 06/25/2025 Vitamin D, 25-Hydroxy, Total, Immunoassay Lab Routine Vitamin D deficiency Expected: 06/25/2024 (Approximate), Expires: 06/25/2025 documented as of this encounter Visit Diagnoses Diagnosis Fatigue, unspecified type- Primary Daytime somnolence Dry mouth Disturbance of salivary secretion Mixed anxiety and depressive disorder Dysthymic disorder Vitamin D deficiency Screening examination for STI Dietary counseling Dietary surveillance and counseling Exercise counseling documented in this encounter Additional Health Concerns Assessment Noted Time PHQ-9 Depression Total Score: 4 10/02/19 23 2:23 PM EDT documented as of this encounter Care Teams Heating Plant Superintendent Relationship Specialty Start Date End Date Chelsi Gilmore ANP [address] [place] [phone] PCP - General Family Medicine 05/26/20 documented as of this encounter
--- OUTSIDE RECORDS SUMMARY | 2024-06-25 14:07 | XMS_ITS | Clinical Summary ---
Author Organization [address] 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 11/07/2023 Lower back pain 11/07/2023 Bilateral knee pain 11/07/2023 Hemorrhoids 11/07/2023 Fibromyalgia 11/07/2023 Social History Tobacco Use Types Packs/Day Years Used Date Smoking Tobacco: Never Assessed Comments Unknown Sex and Gender Information Value Date Recorded Sex Assigned at Not on file Legal Sex Female 11:01 AM EDT Gender Identity Not on file Sexual Orientation Not on file Plan of Treatment Upcoming Encounters Date Type Department Care Team ([facility] st Contact Info) Description 07/14/2024 1:45 PM EST Office Visit Orthopedic Surgery [facility] [address] [phone] Malcom Lin DPM [address] [id number] Health Maintenance Due Date Last Done Comments DTaP,Tdap,and Td Vaccines (1 - Tdap) 2008 Hepatitis B Vaccines (1 of 3 - 19+ 3-dose series) 2008 Cervical Cancer Screening: P ap Smear 2010 Depression Screening 01/07/2024 HIV Screening 01/07/2024 Hepatitis C Screening 01/07/2024 Social Influencers of Health Screening 01/07/2024 COVID-19 Vaccine (1 - 2023-2 5 season) 2024 Influenza Vaccine (#1) 2024 HIB Vaccines Aged Out No longer eligi ble based on patient's age to complete this topic HPV Vaccines Aged Out No longer eligi ble based on patient's age to complete this topic Hepatitis A Vaccines Aged Out No long er eligible based on patient's age to complete this topic IPV Vaccines Aged Out No longer eligi ble based on patient's age to complete this topic MMR Vaccines Aged Out No longer eligi ble based on patient's age to complete this topic Meningococcal ACWY Vaccine Aged Out N o longer eligible based on patient's age to complete this topic Meningococcal B Vacine Aged Out No lo nger eligible based on patient's age to complete this topic Pneumococcal Vaccine: Pediat rics (0 to 5 Years) and At-Risk Patients (6 to 64 Years) Aged Out No longer eligible b ased on patient's age to complete this topic RSV Immunization Patients Un john 20 months Aged Out No longer eligible b ased on patient's age to complete this topic Varicella Vaccines Aged Out No longer eligible based on patient's age to complete this topic Insurance MEDICAID - [place] Care Teams Household Coordinator Relationship Specialty Start Date End Date Chelsi Gilmore NP [address] [place] [phone] PCP - General 09/02/23
--- OUTSIDE RECORDS SUMMARY | 2024-06-25 14:07 | XMS_ITS | Encounter Summary ---
Author Organization [facility] Address [address] [facility] [address] [place] [address] Care Team Providers Care Divider Operator Name Role Phone Chelsi Gilmore Primary Care Provider [phone] Encounter Details Date Type Department Care Team (Latest Contact Info) Description 06/25/2024 Travel Social History Tobacco Use Types Packs/Day Years [...] AM EDT documented as of this encounter Plan of Treatment Not on file documented as of this encounter Visit Diagnoses Not on filedocumented in this encounter Additional Health Concerns Assessment Noted Time PHQ-9 Depression Total Score: 4 10/02/19 23 2:23 PM EDT documented as of this encounter Care Teams Divider Operator Relationship Specialty Start Date End Date Chelsi Gilmore ANP [address] [place] [phone] PCP - General Family Medicine 05/26/20 documented as of this encounter
--- OUTSIDE RECORDS SUMMARY | 2024-06-25 14:07 | XMS_ITS | Clinical Summary ---
Author Organization [facility] Address [address] [place] [address] Care Team Providers Care Manager Army Name Role Phone Vick Boyd Primary Care Provider [phone] Allergies Active Allergy Reactions Criticality Noted Date Comments Aspirin 01/04/2014 Other reaction(s): Trouble Breathing,Rash,Itchy Eye Medications No known medications Active Problems Problem Noted Date Diagnosed Date Dental plaque 01/13/2024 Missing teeth, acquired 01/13/2024 Chronic pain of right knee 10/01/2022 Assessment & Plan (10/01/2022 2:43 PM EDT): Patient here with c/o chronic right knee pain for years with radiation to her right ankle , described as 6-7/10 when severe. No injury. Pt reports she had PT with no good results. Interested in steroid injections Etiology ? Pt is obese I suspect a degree of DJD. She is quite tender to palpation , nothing to suggest infection, no evidence of knee instability, She is allergic to Aspiring and is leery to take other medications Plan: Rest, ICE, Continue Acetaminophen, Plain films , obtain CBC, Uric Acid although doubt infection or gout but need to be ruled out Ortho referral for steroid injection for both therapeutic and diagnostic purposes Follow up with PCP after seeing ortho Acute right ankle pain 10/01/2022 Decreased hearing 04/26/2020 Fibromyalgia 12/25/2017 Vitamin D deficiency 11/06/2017 ALT (SGPT) level raised 11/06/2017 Obesity 07/30/2017 Pain of breast 09/09/2016 Herpes zoster without complication 09/09/2016 Reactive airway disease 05/10/2016 Mixed anxiety and depressive disorder 03/29/2016 Dyspnea 03/29/2016 Encounters Date Type Department Care Team Description 06/25/2024 1:00 PM EST Office Visit [facility] [address] [place] [address] Vick Boyd ANP Fatigue, unspecified type (Primary Dx); Daytime somnolence; Dry mouth; Mixed anxiety and depressive disorder; Vitamin D deficiency; Screening examination for STI; Dietary counseling; Exercise counseling 06/25/2024 Travel 06/11/2024 Patient Outreach [address] [address] Vick Boyd ANP Pre-visit Planning (SDOH Screening negative and Tobacco screening negative) 05/10/[address] [address] Nilsa Loera RICH June04/01/[address] [address] Guerita Peña RN Results from Last 3 Months Immunizations Name Administration Dates Next Due MMR 03/25/2015 Pfizer Covid-19 Vaccine 12+ 01/03/2021, Tdap 10/30/2018,12/25/2017,01/13/2015 Family History Medical History Relation Name Comments Diabetes Brother Diabetes Father Breast cancer Mother Stroke Paternal Grandmother Relation Name Status Comments Brother Father Mother Paternal Grandmother Social History Tobacco Use Types Packs/Day Years [...] Orientation Straight 03/11/2022 10 :26 AM EDT Last Filed Vital Signs Vital Sign Reading [...] 12.8 oz) 06/25/2024 1:13 PM EST Height 165.1 cm (5' 5 ) 02/27/2024 1:36 PM EDT Body Mass Index 35.41 02/27/2024 1:36 PM EDT Plan of Treatment Health Maintenance Due Date Last Done Comments Alcohol/Substance Use Screening 2001 Family Planning (PISQ) 2004 Hepatitis B Vaccines (1 of 3 - 19+ 3-dose series) 2008 Cervical Cancer Screening 09/06/2023 HPV/Cotest 09/06/2023 09/05/2022, 05/13, 10/01/2021, Additional history exists Depression Screening 10/02/2023 10/01/2022, 10/02/19 23 COVID-19 Vaccine ( season) 2024 01/03/2021, 12/13/2020 Influenza Vaccine (#1) 2024 Dental Oral Exam 07/13/2024 01/13/2024, 03/2021, 08/13/2018 Dental Prophylaxis 07/13/2024 01/13/2024, 1 05/26/2021, 03/08/2021, Additional history exists Pap Smear 07/28/2024 07/29/2023, 08/11, 06/05/2022, Additional history exists Dental X-Ray: Bitewings 01/13/2025 01/13/20 24, 04/10/2021, 08/13/2018 Tobacco Screening 04/01/2025 04/01/2024 SDOH Screening 06/11/2025 06/11/2024 Dental X-Ray: Full Mouth 01/13/2027 024, 05/22/2020, 08/13/2018 DTaP/Tdap/Td Vaccines (4 - Td or Tdap) 10/30/2028 10/30/2018, 12/25/2017, 01/13/2015 Lipid Panel 02/26/2029 02/27/2024, 06/12, 03/10/2020 Zoster Vaccines (1 of 2) 09/20/2039 RSV Patients and Patients Aged 60 years or older (1 - 1-dose 75+ series) 2064 HIV Screening Completed 02/27/2024, 01/10, 08/15/2022, Additional history exists Hepatitis C Screening Completed 02/27/2024 , 01/28/2023, 08/15/2022, Additional history exists HIB Vaccines Aged Out No longer eligi [...] patient's age to complete this topic Meningococcal Vaccine Aged Out No joe alberto eligible based on patient's age to complete this topic Pneumococcal Vaccine: Pediatrics (0 to 5 Years) and At-Risk Patients (6 to 49) Years) Aged Out No longer eligible based on patient's age to complete this topic RSV under 20 months Aged Out No longe r eligible based on patient's age to complete this topic Rotavirus Vaccines Aged Out No longer eligible based on patient's age to complete this topic Procedures Procedure Name Priority Date/Time Associated Diagnosis Comments US PELVIS TRANSVAGINAL Routine 03/25/2024 4:24 PM EST HEPATITIS C AB W/REFL TO HCV RNA, QN, PCR Routine 02/27/2024 2:35 PM EDT Routine screening for STI (sexually transmitted infection) HIV 1/2 ANTIGEN/ANTIBODY, FOURTH GENERATION W/RFL Routine 02/27/2024 2:35 PM EDT Routine screening for STI (sexually transmitted infection) LIPID PANEL, STANDARD Routine 02/27/2024 2:35 PM EDT Elevated random blood glucose level PROPHYLAXIS - ADULT Routine 01/13/2024 1 :00 PM EDT Dental plaque INTRAORAL - COMPLETE SERIES OF RADIOGRAPHIC IMAGES Routine 01/13/2024 1:00 PM EDT Dental plaque Missing teeth, acquired PERIODIC ORAL EVALUATION - ESTABLISHED PATIENT Routine 01/13/2024 1:00 PM EDT PAP SMEAR Routine 07/29/2023 12:00 AM EDT IMAGE-GUIDED PAP W/AGE BASED SCR,W/CT/NG/TRICH Routine 09/05/2022 10:13 AM EDT Atypical squamous cells of undetermined significance (ASCUS) on Papanicolaou smear of cervix from Last 3 Months or Most Recently Relevant to Health Maintenance Results * US Pelvis Transvaginal (03/25/2024 4:24 PM EST) Anatomical Region Laterality Modality Pelvis Ultrasound 03/25/2024 4:24 PM EST Narrative 05/25/2024 10:36 AM EST ? [facility] ?[address] ?[place] [address] ? Ultrasound Report ? Signed ? Patient: Resendiz,Sandrine ?MR#: [id number] ?? 58 ? : 1990 ?Acct:[id number] ? Age/Sex: 33 / F ?ADM Date: 11/14/24 ? Loc: HO.US ? Attending Dr: Roya Dodd CNM ? Ordering Physician: Roya Dodd CNM ?? Date of Service: 03/25/24 ?? Procedure(s): US pelvic and transvaginal ?? Accession Number(s): [id number] ? cc: Roya Dodd CNM; VICK BOYD NP ? EXAMINATION: ? US PELVIS ? CLINICAL INFORMATION: ? Pelvic and perineal pain, last menstrual period March 04. ? COMPARISON: ?? 04/17/2021 ? TECHNIQUE: ?? Ultrasound of the pelvis is performed using both transabdominal and ?? transvaginal transducers along with Doppler. Transvaginal imaging is ?? performed due to inadequate visualization transabdominally. ? FINDINGS: ?? Anteverted uterus measures 8.4 x 3.3 x 4.5 cm. ? Nabothian cysts in the cervix. ? Small amount of fluid within the endometrial cavity. Double wall ?? endometrial thickness without inclusion of this fluid is 7 mm. Double ?? wall endometrial thickness including fluid is 10 mm. Endometrial delatorre ?? appear echogenic. ? Right ovary measures 2.3 x 3.1 x 2.6 cm, volume 9.7 mL. Left ovary ?? measures 2.5 x 1.5 x 1.6 cm, volume 3.1 mL. Tiny echogenic focus within ?? the right ovary is characteristic of a calcification. Limited ?? visualization of bilateral ovaries due to bowel gas. ? US/US pelvic and transvaginal ?? IMPRESSION: ?? Small amount of fluid within the endometrial cavity. Double wall ?? endometrial thickness without inclusion of this fluid is 7 mm. Double ?? wall endometrial thickness including fluid is 10 mm. Endometrial delatorre ?? appear echogenic. Correlation with clinical exam and gynecologic ?? consultation recommended to determine further management. ? Electronically signed by: ??Emmy Givens MD ??05/25/2024 10:33 AM EST ?? RP ? Dictated By: ?Emmy Givens MD ? Signed By: ?<Electronically signed by Emmy Givens MD in OV> ? 05/25/24 1033 ? DD/ 1624 ? TD/TT: 03/25/24 1636 ? Chip Crusher Operator: ? Procedure Note Yumiko, Image - 05/25/[address] [address] Ultrasound Report Signed Patient: Yovanny Resendiz#: [id number] : 1990Acct:[id number] Age/Sex: 33 / FADM Date: 03/25/24 Loc: HO.US Attending Dr: Roya Dodd CNM Ordering Physician: Roya Dodd CNM Date of Service: 03/25/24 Procedure(s): US pelvic and transvaginal Accession Number(s): [id number] cc: Roya Dodd CNM; VICK BOYD NP EXAMINATION: US PELVIS CLINICAL INFORMATION: Pelvic and perineal pain, last menstrual period March 04. COMPARISON: 04/17/2021 TECHNIQUE: Ultrasound of the pelvis is performed using both transabdominal and transvaginal transducers along with Doppler. Transvaginal imaging is performed due to inadequate visualization transabdominally. FINDINGS: Anteverted uterus measures 8.4 x 3.3 x 4.5 cm. Nabothian cysts in the cervix. Small amount of fluid within the endometrial cavity. Double wall endometrial thickness without inclusion of this fluid is 7 mm. Double wall endometrial thickness including fluid is 10 mm. Endometrial delatorre appear echogenic. Right ovary measures 2.3 x 3.1 x 2.6 cm, volume 9.7 mL. Left ovary measures 2.5 x 1.5 x 1.6 cm, volume 3.1 mL. Tiny echogenic focus within the right ovary is characteristic of a calcification. Limited visualization of bilateral ovaries due to bowel gas. US/US pelvic and transvaginal IMPRESSION: Small amount of fluid within the endometrial cavity. Double wall endometrial thickness without inclusion of this fluid is 7 mm. Double wall endometrial thickness including fluid is 10 mm. Endometrial delatorre appear echogenic. Correlation with clinical exam and gynecologic consultation recommended to determine further management. Electronically signed by: Emmy Givens MD 05/25/2024 10:33 AM EST Dictated By: Emmy Givens MD Signed By: <Electronically signed by Emmy Givens MD in OV> 05/25/24 1033 DD/ 1624 TD/TT: 03/25/24 1636 Chip Crusher Operator: [facility] External Provider IMG US PROCEDURES Final Result * Hepatitis C Antibody with Reflex to HCV, RNA, Quantitative, Real-Time PCR (02/27/2024 2:35 PM EDT) Hepatitis C Antibody Nonreactive Nonreactive [facility] Comment:Antibodies to HCV no t detected; does not exclude early acuteHCV infection. Blood Venous blood specimen / Unknown 02/27/2024 2:35 PM EDT 02/27/2024 4:21 PM EDT Vick Boyd [facility] LAB BLOOD ORDERABLES Final Resul t Performing Organization Address [facility] de Phone Number [facility] [address] [place] [phone] * HIV-1/2 Antigen and Antibodies, Fourth Generation, with Reflexes (02/27/2024 2:35 PM EDT) Pathologist [facility] HIV AB/AG Nonreactive Nonreactive [facility] Comment:HIV-1 p24 Ag and/or HIV-1/HIV-2 Ab not detected.A test result that is nonreactive does not exclude thepossibility of exposure to or infection with HIV-1 and/orHIV-2. Nonreactive results in this assay for individualswith prior exposure to HIV-1 and/or HIV-2 may be due toantigen and antibody levels that are below the limit ofdetection of this assay.The [employer] HIV Ag/Ab Combo assay result andsupplemental assay results should be interpreted inconjunction with the patient's clinical presentation,history and other laboratory results. If the results areinconsistent with clinical evidence, additional testing issuggested to confirm the result. Blood Venous blood specimen / Unknown 02/27/2024 2:35 PM EDT 02/27/2024 4:21 PM EDT Vick ANTONIO LAB BLOOD ORDERABLES Final Resul t Performing Organization Address [facility] Co de Phone Number [facility] [address] [place] [address] [phone] * (ABNORMAL) Lipid Panel, Standard (02/27/2024 2:35 PM EDT) Triglycerides 93 <150 mg/dL [facility] Comment:Desirable Triglyceri de: less than 150 mg/dLBorderline High Triglyceride 150-199 mg/dLHigh Triglyceride: 200-499 mg/dLVery High Triglyceride: greater than or equal to 5OO mg/dL Cholesterol 165 <200 mg/dL [facility] Comment:Desirable Cholestero l: less than 200 mg/dLBorderline High Cholesterol: 200-239 mg/dLHigh Cholesterol: greater than 239 mg/dL LDL Cholesterol Calculated 105(H) <100 mg/dL [facility] Comment:Desirable LDL: less than 100 mg/dLNear Optimal/Above Optimal LDL: 110- 129 mg/dLBorderline High LDL: 130-159 mg/dLHigh LDL: 160-189 mg/dLVery High LDL: greater than or equal to 190 mg/dL HDL Cholesterol 42 >40 mg/dL [facility] Comment:Desirable HDL: great er than 40 mg/dL Note: This HDL assay may give artificially low results in patients with liver disease. Blood Venous blood specimen / Unknown 02/27/2024 2:35 PM EDT 02/27/2024 4:21 PM EDT [facility] LAB BLOOD ORDERABLES Final Resul t [facility] [address] [place] [address] [phone] * Pap Smear (07/29/2023 12:00 AM EDT) 07/29/2023 07/31/2023 1:0 0 PM EDT Narrative [facility] - 08/11/2023 1:16 PM EDT ----- ------- Name: ResendizSandrine ? Age/Sex: 32/F ? : 1990 Unit#: [id number] ?? Attend Dr: Roya Dodd CNM ?Re07/29/23 ?Status: DEP REF ? Location: HO.LNP ?Disch: ? ----- ------- SPEC : [id number] ? RECD: 07/31/23-1300 ? STATUS: ??SOUT ? REQ NUM: [id number] ? KINSEY: 07/29/23-0000 ? SUBM DR: Roya Dodd CNM ? ENTERED: ??07/31/23-1413 ?SP TYPE: Pap Smr ?OTHR DR: VICK BOYD NP ? ORDERED: ??Pap Smear ? Interpretation ?? Satisfactory for evaluation. ?? Moderate inflammation. ?? Negative for intraepithelial lesion or malignancy. ?HPV mRNA E6/E7: ?NOT DETECTED ? This assay detects E6/E7 viral messenger RNA (mRNA) from 14 high-risk HPV types (16, 18, ?? 31, 33, 35, 39, 45, 51, 52, 56, 58, 59, 66, 68) ?? HPV testing performed by [facility], [place], [place]. ??See reference laboratory ?? portion of the EMR for entire report. ?Clinical Information LMP: 07/14/23 Previous PAP test: 06/05/22, Abnormal ? Material Received ?? ThinPrep-Cervical Copies To: ?? Roya Dodd CNM ?? [address] ?? [place] [address] ?? [phone] ?? VICK BOYD NP ?? [address] [address] ?? [place] [address] ?? [phone] ----- ------- Signed (signature on file) BABATUNDE Bartholomew (ASCP) 08/11/23 6836 ? ----- ------- ? END OF REPORT ? us Generic External Data Provider LAB CYTOLOGY RASHADAngelita WALLACE Final Result [facility] [address] [place] [address] [phone] * (ABNORMAL) Image-Guided Pap with Age-Based Screening??with CT/NG,??Trichomonas (09/05/2022 10:13 AMEDT) Comment [facility] Comment: This order for age-based cervical cancer and STI screening follows ACOG guidelines(PB 168, 140, BRY708). See individual assays for performing site location. Clinical Information: ASCUS HPV NEG 2021 [facility] LMP: NONE GIVEN [facility] Prev. PAP: YES [facility] Prev. BX: NONE GIVEN [facility] SOURCE: None given [facility] Statement Of Adequacy: [facility] Comment: Satisfactory for evaluation. Endocervical/transformation zone component present. General Categorization: EPITHELIAL CELL ABNORMALITY(A) [facility] Interpretation/Re sult: Atypical Squamous Cells of Undetermined Significance (ASC-US)(A) [facility] COMMENT: This Pap test has been evaluated with computer assisted technology. [facility] Raw Finish Mill Operator: Lolis [facility] Comment: YP, CT(ASCP) CT screening location: [address] ??[address] Review Raw Finish Mill Operator: [facility] Comment: RMM, CT(ASCP) CT screening location: [address] ??[address] PATHOLOGIST: [facility] Comment: Halima Gonzalez M.D. , Board Certified in Anatomic and Clinical Pathology, Cytopathology and Immunopathology (electronic signature) (Always Message) [facility] Comment: EXPLANATORY NOTE: The Pap is a screening test for cervical cancer. It is not a diagnostic test and is subject to false negative and false positive results. It is most reliable when a satisfactory sample, regularly obtained, is submitted with relevant clinical findings and history, and when the Pap result is evaluated along with historic and current clinical information. HPV nRNA E6/E7 Not Detected Not Detected [facility] Comment: Methodology: Database Administrator-Mediated Amplification This assay detects E6/E7 viral messenger RNA (mRNA) from 14 high-risk HPV types (16,18,31,33,35,39,45,51,52,56,58,59,66,68). Cervical sources are required for HPV testing. If a vaginal source from a patient who has had a total hysterectomy with removal of cervix was submitted, please contact the testing laboratory for alternative testing options. For additional information, please refer to http://[employer].Scan•Jour/faq/IUR620p8 (This link if provided for information/ educational purposes only.) Chlamydia trachomatis RNA, TMA, Urogenital NOT DETECTED NOT DETECTED [employer]ocket[employer] Neisseria gonorrhoeae RNA, TMA, Urogenital NOT DETECTED NOT DETECTED [facility] (Always Message) [employer] [facility] Comment: The analytical performance characteristics of this assay, when used to test SurePath(TM) specimens have been determined by [facility]. The modifications have not been cleared or approved by the FDA. This assay has been validated pursuant to the CLIA regulations and is used for clinical purposes. For additional information, please refer to https://[employer].Scan•Jour/faq/XMT408 (This link is being provided for information/ educational purposes only.) Trichomonas vaginalis, QL, TMA, PAP Vial NOT DETECTED NOT DETECTED [employer] Comment: The analytical performance characteristics of this assay have been determined by [facility]. The modifications have not been cleared or approved by the FDA. This assay has been validated pursuant to the CLIA regulations and is used for clinical purposes. For additional information, please refer to http://education.[employer]M Power/ faq/Trichomonastma (This link is being provided for information/ educational purposes only.) Pap Vial 09/05/2022 10:1 3 AM EDT 09/06/2022 5:38 AM EDT [facility] LAB CYTOLOGY ORDERABLES F inal Result [facility] [address], [place] [address] [facility] [address] [place] [address] from Last 3 Months or Most Recently Relevant to Health Maintenance Insurance [facility] MEDICAID STAND ADULT Care Teams Manager Army Relationship Specialty Start Date End Date Vick Boyd ANP [address] [place] [phone] PCP - General Family Medicine 05/26/20
--- OUTSIDE RECORDS SUMMARY | 2024-06-25 14:07 | XMS_ITS | Encounter Summary ---
Author Organization [facility] Address [address] [place] [phone] Care Team Providers Care Sleeping Car Porter Name Role Phone Chelsi Gilmore Primary Care Provider [phone] Encounter Details Date Type Department Care Team (Latest Contact Info) Description 09/01/2018 Abstract [facility] CONVERSIONS Dental, Provider, DDS Social History Tobacco Use Types Packs/Day Years [...] Diagnoses Not on filedocumented in this encounter Care Teams Sleeping Car Porter Relationship Specialty Start Date End Date Chelsi Gilmore ANP [address] [place] [address] PCP - General Family Medicine 05/26/20 documented as of this encounter
--- OUTSIDE RECORDS SUMMARY | 2024-06-25 14:07 | XMS_ITS | Encounter Summary ---
Author Organization [facility] Address [address] [place] [phone] Care Team Providers Care A&P Mechanic Name Role Phone Chelsi Gilmore Primary Care Provider [phone] Encounter Details Date Type Department Care Team (Latest Contact Info) Description 07/17/2020 Abstract [facility] CONVERSIONS Dental, Provider, DDS Social History Tobacco [...] on filedocumented in this encounter Care Teams A&P Mechanic Relationship Specialty Start Date End Date Chelsi Gilmore ANP [address] [place] [address] PCP - General Family Medicine 05/26/20 documented as of this encounter
[2024-06-25 16:21] LABS: MANUAL DIFF FLAG NO
[2024-06-25 16:27] LABS: Basophils Percent Auto 0.4 % (0-2); Eosinophils Absolute Auto 0.2 X10*3/uL (0.0-0.4); Eosinophils Percent Auto 1.6 % (0-4); Hematocrit 38.1 % (37.0-47.0); Hemoglobin 12.7 g/dl (12.0-16.0); Imm Gran Abs Auto 0.04 X10*3/uL (0.00-0.03); Imm Gran Pct Auto 0.4 % (0.0-0.4); Lymphocytes Absolute Auto 2.6 X10*3/uL (1.2-4.9); Lymphocytes Percent Auto 27.7 % (20-40); Mean Corpuscular HGB Conc 33.3 g/dl (31.0-35.0); Mean Corpuscular Hemoglobin 28.7 pg (27.0-33.0); Mean Corpuscular Volume 86.2 fL (80.0-98.0); Mean Platelet Volume 9.5 fL (9.4-12.3); Monocytes Absolute Auto 0.7 X10*3/uL (0.1-1.2); Monocytes Percent Auto 6.9 % (2-11); Platelet Count 311 X10*3/uL (160-400); Red Blood Count 4.42 X10*6/uL (4.20-5.50); Red Cell Distribution Width 12.4 % (11.0-16.0); White Blood Count 9.5 X10*3/uL (4.8-10.8)
[2024-06-25 16:34] LABS: Estimated Average Glucose 105 mg/dL; Hemoglobin A1C 114.9304 umol/L; Hemoglobin A1c % 5.3 % (<6.0); Total Hemoglobin (HGBA1C) 3334.2073 umol/L
[2024-06-25 16:59] LABS: Vitamin D 25-OH Total 18.4 ng/mL (>30)
[2024-06-26 03:52] LABS: CT PCR NOT DETECTED (Not Detect.); NG PCR NOT DETECTED (Not Detect.)
[2024-06-26 03:56] LABS: HIV AB/AG Nonreactive (Nonreactive); HIV Num 1 0.07 S/CO (0.00-0.99); ~HepC Num1 0.12 S/CO (0.00-0.79); ~Hepatitis C Antibody Nonreactive (Nonreactive)
[2024-06-28 11:13] LABS: RPR Rapid Plasma Reagin NON-REACTIVE (NON-REACTIVE)
== END 2024-06-25 14:05 | disposition home or self-care (01) ==
LOC: HO.HHCL 14:04
PROVIDERS: Visit Provider Nurse Practitioner Primary Care
DX: Z11.3 Encounter for screening for infections with a predominantly sexual mode of transmission (principal); E55.9 Vitamin D deficiency, unspecified; R53.83 Other fatigue
CPT/HCPCS: 36415; 82306; 83036; 85025; 86592; 86803; 87389; 87491; 87591

== ENCOUNTER 2024-08-03 10:10 | Outpatient (AMB) | payer MEDICAID, SELFPAY ==
[2024-08-03 10:14] VITALS: BP 112/68; BMI 35.9
--- NOTE | 2024-08-03 10:14 | MHC.OFFVIS ---
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 Ultrasound was ordered in it was not read for 2 months. We had a visit to discuss the results of the last visit and I suggested to her that she maybe interested in Mirena IU S as way to diagnose endometriosis is surgically and usually efforts are made 1st to see if periods could be made less painful and crampy. She had noted at the last visit that her last period had been just a very light spotting and she says the last. After that was also very light they have been coming on time however this last period on the was about a day and a half and today she has got a little spotting again. Discussion took place a again about the possible use of a Mirena IU S to help regularize and her lining from building up. She is not interested. 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, [employer]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 Reproductive History Menstrual Age of Menarche: 11 Duration of menses: 3-5 days Date of last menstrual period: 07/30/24 control method: permanent sterilization Total pregnancies: 3 Full term: 3 Date of last pap smear: 07/31/23 ([id number]) History of abnormal pap smear: Yes (2020 neg,hpv+) Physical Exam Vital Signs: Last Vital Signs BP 112/68 08/03/24 10:14 BMI result Body Mass Index 35.9 Const General: healthy appearing, comfortable, no acute distress, well developed and alert Nutritional Appearance: average body habitus Orientation/consciousness: patient oriented x3 Limitations: no limitations HEENT Head: Yes normocephalic Neck Neck: Yes normal visual inspection Chest Chest palpation & inspection: normal inspection of the chest Breast/axilla inspection: normal inspection of the breasts and normal inspection of the axillae Breast/axilla palpation: normal palpation of the breasts and normal palpation of the axillae Resp Effort & Inspection: normal respiratory effort GI Inspection: Yes normal to inspection, No Abdominal wall edema and No distended Palpation (GI): Soft to palpation and nontender Other: External exam within normal limits vagina pink and moist scant amount of light end of menses type very light bleeding. Cervix multiparous pink smooth healthy appearing no abnormal discharge cervix long close thick mobile nontender adnexa nontender uterus not enlarged difficult to palpate secondary to adipose good tone Kegel. General: Yes bladder normal to palpation External Female Exam: normal external appearance and normal appearance of the urethra Speculum Exam - Vagina: normal appearance of the vagina, normal palpation and normal vaginal discharge Speculum Exam - Cervix: normal appearance of the cervix, normal palpation and nontender Bimanual exam- vagina & uterus: normal bimanual exam, normal palpation, uterine size normal, bladder normal to palpation, consistency normal, normal palpation, uterine mobility normal, uterine shape normal, No Cervical tenderness present, non-tender and no cervical motion tenderness Bimanual Exam- Adnexa, other: normal adnexae, no masses, normal and No adnexal tenderness Neuro General: patient oriented x3 Results Reviewed Results Reviewed: Name: Sandrine Resendiz Age/Sex: 32/F Attending: Roya Dodd CNM : 1990 Submitted by: Roya Dodd Copies to: VICK BOYD NP MR #: [id number] Status: DEP REF Collected: 07/29/23 Location: [facility] Received: 07/31/23 Interpretation Satisfactory for evaluation. Moderate inflammation. Negative for intraepithelial lesion or malignancy. HPV mRNA E6/E7: NOT DETECTED This assay detects E6/E7 viral messenger RNA (mRNA) from 14 high-risk HPV types (16, 18, 31, 33, 35, 39, 45, 51, 52, 56, 58, 59, 66, 68) HPV testing performed by [facility], [place], [place]. See reference laboratory portion of the EMR for entire report. Clinical Information LMP: 07/14/23 Previous PAP test: 06/05/22, Abnormal Material Received ThinPrep-Cervical Copies To Roya Dodd[address] [place] [address] [place] [id number] VICK BOYD NP [address] [place] [id number] Electronically Signed By: BABATUNDE Bartholomew (ASCP) 08/11/23 1316 The Pap Test is a screening procedure with the inherent possibility of both false negative and false positive results. Results should be interpreted in the context of historic and current clinical findings. Reliability of the Pap Test is enhanced by performing the test on a regular repetitive basis. Patient: Sandrine Resendiz Age/Sex: 32/F Ac Name: Sandrine Resendiz Age/Sex: 31/F Attending: Tanja Miller CNM : 1990 Submitted by: Tanja Miller CNM Copies to: MR #: [id number] Status: DEP REF Collected: 06/05/22 Location: [facility] Received: 06/05/22 Interpretation Satisfactory for evaluation. Negative for intraepithelial lesion or malignancy. Coccobacilli consistent with shift in vaginal cheryl. HPV mRNA E6/E7: NOT DETECTED This assay detects E6/E7 viral messenger RNA (mRNA) from 14 high-risk HPV types (16, 18, 31, 33, 35, 39, 45, 51, 52, 56, 58, 59, 66, 68) HPV testing performed by [facility], [place], [place]. See reference laboratory portion of the EMR for entire report. Clinical Information LMP: 05/21/22 Previous PAP test: 05/01, Abnormal Other history: +HPV Material Received ThinPrep-Cervical Electronically Signed By: Penelope Saeed 06/14/22 1830 The Pap Test is a screening procedure with the inherent possibility of both false negative and false positive results. Results should be interpreted in the context of historic and current clinical findings. Reliability of the Pap Test is enhanced by performing the test on a regular repetitive basis. Patient: Sandrine Resendiz Age/Sex: 31/F MR#: [id number] Page 1 of 1 Name: Sandrine Resendiz Age/Sex: 33/F : 1990 Unit#: [id number] Attend Dr: VICK BOYD NP Re06/25/24 Status: DEP [facility] SPEC : [id number] [place]IN[place]: 06/25/24 STATUS: COMP REQ : [id number] RECD: 06/25/[address] [facility] [address]: VICK BOYD NP COMP: 06/26/24 ENTERED: 06/25/24-[address] [facility] [address]: ORDERED: Anti-HCV Rflx, HIV Ab/Ag Test Result Flag Reference Anti-HCV Nonreactive Nonreactive Antibodies to HCV not detected; does not exclude early acute HCV infection. HIV AB/AG Nonreactive Nonreactive HIV-1 p24 Ag and/or HIV-1/HIV-2 Ab not detected. A test result that is nonreactive does not exclude the possibility of exposure to or infection with HIV-1 and/or HIV-2. Nonreactive results in this assay for individuals with prior exposure to HIV-1 and/or HIV-2 may be due to antigen and antibody levels that are below the limit of detection of this assay. The VeriShow HIV Ag/Ab Combo assay result and supplemental assay results should be interpreted in conjunction with the patient's clinical presentation, history and other laboratory results. If the results are inconsistent with clinical evidence, additional testing is suggested to confirm the result. Patient: Yovanny Resendiz#: [id number]: 1990Acct:[id number]/Sex: 33 / FADM Date: 03/25/24Loc: [facility]LEXI[facility]ending Dr: Roya Dodd CNM Ordering Physician: Roya Dodd CNM Date of Service: 03/25/24 Procedure(s): US pelvic and transvaginal Accession Number(s): [id number] cc: Roya Dodd CNM; VICK OBYD NP~ EXAMINATION: US PELVIS CLINICAL INFORMATION: Pelvic and perineal pain, last menstrual period March 04. COMPARISON: 04/17/2021 TECHNIQUE: Ultrasound of the pelvis is performed using both transabdominal and transvaginal transducers along with Doppler. Transvaginal imaging is performed due to inadequate visualization transabdominally. FINDINGS: Anteverted uterus measures 8.4 x 3.3 x 4.5 cm. Nabothian cysts in the cervix. Small amount of fluid within the endometrial cavity. Double wall endometrial thickness without inclusion of this fluid is 7 mm. Double wall endometrial thickness including fluid is 10 mm. Endometrial delatorre appear echogenic. Right ovary measures 2.3 x 3.1 x 2.6 cm, volume 9.7 mL. Left ovary measures 2.5 x 1.5 x 1.6 cm, volume 3.1 mL. Tiny echogenic focus within the right ovary is characteristic of a calcification. Limited visualization of bilateral ovaries due to bowel gas. US/US pelvic and transvaginal IMPRESSION: Small amount of fluid within the endometrial cavity. Double wall endometrial thickness without inclusion of this fluid is 7 mm. Double wall endometrial thickness including fluid is 10 mm. Endometrial delatorre appear echogenic. Correlation with clinical exam and gynecologic consultation recommended to determine further management. Electronically signed by: Emmy Givens MD 05/25/2024 10:33 AM EST Dictated By:Emmy Givens MDSigned By:<Electronically signed by Emmy Givens MD in OV>05/25/24 1033 DD/ 1624TD/TT: 03/25/24 1636Transcriptionist: END OF REPORT Assessment & Plan Assessment & Plan (1) Well woman exam with routine gynecological exam: Code(s): Z01.419 - Encounter for gynecological examination (general) (routine) without abnormal findings Category: Medical (2) Hx of abnormal cervical Pap smear: Comment: History positive HPV 2020 negative Pap in 2021 Pap repeated 07/29/2023= negative with negative HPV. Code(s): Z87.42 - Personal history of other diseases of the female genital tract Category: Medical (3) Pelvic pain: Comment: Cramping midcycle and premenstrual. Code(s): R10.2 - Pelvic and perineal pain Category: Medical (4) H/O dysmenorrhea: Code(s): Z87.42 - Personal history of other diseases of the female genital tract Category: Medical (5) Encounter for screening examination for sexually transmitted disease: Code(s): Z11.3 - Encounter for screening for infections with a predominantly sexual mode of transmission Category: Medical (6) Obesity (BMI 35.0-39.9 without comorbidity): Code(s): E66.9 - Obesity, unspecified Category: Medical Plan Patient is here for her research center partner in exam she was seen last year for pelvic pain issues and might be discussion about when she had the pain who is with her periods and her concerns about whether not she might have endometriosis. Ultrasound was ordered in it was not read for 2 months. We had a visit to discuss the results of the last visit and I suggested to her that she maybe interested in Mirena IU S as way to diagnose endometriosis is surgically and usually efforts are made 1st to see if periods could be made less painful and crampy. She had noted at the last visit that her last period had been just a very light spotting and she says the last. After that was also very light they have been coming on time however this last period on the was about a day and a half and today she has got a little spotting again. Discussion took place a again about the possible use of a Mirena IU S to help regularize and her lining from building up. She is not interested. I reviewed how it may health with her periods she had a history of having painful periods and and now they are becoming very very light I discussed her weight pattern with a she has in fact gained weight the fall when she had the last ultrasound discussed how sometimes when women gain weight they may have a period when they may not ovulate and therefore they do not get a full. Over time this can develop into a buildup lining uterus and eventually hemorrhaging situation discussed the 1 way to this would be to consider the Mirena IU and I did again addresses benefits this situation she is not interested at all. I again told her she did feel there was some question of needing to investigate other issues she would need to seek other advice as I do not do surgery but I see no indication for referral at this time. I did address the weight gain issue with her and she is actually planning do something about the she said that she was not heavy enough qualify for bariatric surgery according to what she said she was told. She said her doctor was going to be prescribing her an injection that is used for diabetes that might help her lose weight and she is going to be seen this month. I also addressed the need for dietary change and she also she would need to start exercising as well. 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 I wished her luck with that I also reviewed some dietary choices and encouraged choosing more vegetables and protein other than carbs Also address the issue with sleep in the if she is not getting and a sweep it is very hard to eat right. This note is constructed using voice recognition software. While every effort has been made to ensure accuracy, brake lining curer errors may have been included. Coding Level of Care Code Est Pt Prev Care 18-39y([id number]) Diagnoses Well woman exam with routine gynecological exam Z01.419 Hx of abnormal cervical Pap smear Z87.42 Pelvic pain R10.2 H/O dysmenorrhea Z87.42 Encounter for screening examination for sexually transmitted disease Z11.3 Obesity (BMI 35.0-39.9 without comorbidity) E66.9
--- OUTSIDE RECORDS SUMMARY | 2024-08-03 12:07 | XMS_ITS | Clinical Summary ---
Author Organization [address] [facility] Address [address] [place] [address] Phone Care Team Providers Care Actuarial Intern Name Role Phone Chelsi Gilmore NP Primary Care Provider [phone] Allergies Active Allergy Reactions Criticality Noted Date Comments Aspirin 03/30/2024 Active Problems Problem Noted Date Diagnosed Date Heel pain 11/07/2023 Ankle pain, right 11/07/2023 Sciatica associated with disorder of lumbar spin e 11/07/2023 Lower back pain 11/07/2023 Bilateral knee pain 11/07/2023 Hemorrhoids 11/07/2023 Fibromyalgia 11/07/2023 Encounters Date Type Department Care Team Description 07/14/2024 1:45 PM EST Office Visit [facility] [address] [phone] Malcom Lin DPM Fibromyalgia (Primary Dx); Pain in right foot; Neuritis from Last 3 Months Social History Tobacco Use Types Packs/Day Years Used Date Smoking Tobacco: Never Assessed Comments Unknown Sex and Gender Information Value Date Recorded Sex Assigned at Not on file Legal Sex Female 11:01 AM EDT Gender Identity Not on file Sexual Orientation Not on file Last Filed Vital Signs Vital Sign Reading Time Taken Comments Blood Pressure - - Pulse - - Temperature - - Respiratory Rate - - Oxygen Saturation - - Inhaled Oxygen Concentration - - Weight 91.6 kg (202 lb) 07/14/2024 1:45 PM EST Height 165.1 cm (5' 5 ) 07/14/2024 1:45 PM EST Body Mass Index 33.61 07/14/2024 1:45 PM EST Plan of Treatment Upcoming Encounters Date Type Department Care Team ([facility] st Contact Info) Description 08/24/2024 9:45 AM EDT Office Visit [facility] [address] [phone] Malcom Lin, DPM [address] [phone] Health Maintenance Due Date Last Done Comments Hepatitis B Vaccines (1 of 3 - 19+ 3-dose series) 2008 Depression Screening 01/07/2024 10/01/2022 Social Influencers of Health Screening 01/07/2024 COVID-19 Vaccine (3 - 2023-2 5 season) 2024 01/03/2021, 12/13/2020 Influenza Vaccine (#1) 2024 Cervical Cancer Screening: P ap Smear 07/28/2026 07/29/2023 DTaP,Tdap,and Td Vaccines (4 - Td or Tdap) 10/30/2028 10/30/2018, 12/25/2017, 01/13/2015 Cholesterol Screening (Lipid Panel) 02/26/2029 02/27/2024 MMR Vaccines Aged Out 03/25/2015 No longer eligi ble based on patient's age to complete this topic HIV Screening Completed 06/25/2024 Hepatitis C Screening Completed 06/25/2024 HIB Vaccines Aged Out No longer eligi [...] to complete this topic RSV Immunization Patients Under 20 months Aged Out No longer eligible b ased on patient's age to complete this topic Varicella Vaccines Aged Out No longer eligible based on patient's age to complete this topic Procedures Procedure Name Priority Date/Time Associated Diagnosis Comments XR FOOT 3+ VIEWS RIGHT Routine 07/14/2024 2:10 PM EST Pain in right foot from Last 3 Months Results * XR Foot 3+ Views Right (07/14/2024 2:10 PM EST) Anatomical Region Laterality Modality Lower Extremities, Foot Right Computed Radiography Narrative 07/14/2024 6:06 PM EST Right foot ??3 views No fracture. No radiopaque foreign joint spaces normal Foot position rectus Normal talus navicular position normal calcaneal inclination normal symes line talus navicular joint to calcaneal cuboid joint ?? us Malcom Lin DPM IMG XR PROCEDURES Final R esult from Last 3 Months Insurance MEDICAID - [place] Care Teams Actuarial Intern Relationship Specialty Start Date End Date Chelsi Gilmore NP [address] [place] [phone] PCP - General 09/02/23
--- OUTSIDE RECORDS SUMMARY | 2024-08-03 12:07 | XMS_ITS | Clinical Summary ---
Author Organization [employer] [facility] Address [address] [facility] 7[address] [place] [address] Care Team Providers Care Tack Cleaner Name Role Phone Vick Boyd Primary Care Provider [phone] Allergies Active Allergy Reactions Criticality Noted Date [...] Encounters Date Type Department Care Team Description 07/23/2024 Population Health Risk Score [facility] ([facility] Department [address] [facility] [address] [place] [address] Provider, Population Health Generic 06/25/2024 1:00 PM EST Office Visit [facility] [address] [place] [phone] Vick Boyd ANP Fatigue, unspecified type (Primary Dx); Daytime somnolence; Dry mouth; Mixed anxiety and depressive disorder; Vitamin D deficiency; Screening examination for STI; Dietary counseling; Exercise counseling; Pelvic pain 06/25/2024 Travel 06/11/2024 Patient Outreach [facility] [address] [place] [address] Vick Boyd ANP Pre-visit Planning (SDOH Screening negative and Tobacco screening negative) 05/10/[address] [address] [place] June recall from Last 3 Months Immunizations Name Administration [...] 02/27/2024 1:36 PM EDT Plan of Treatment Upcoming Encounters Date Type Department Care Team (Late st Contact Info) Description 09/23/2024 9:15 AM EDT Office Visit [facility] [address] [place] [address] Vick Boyd, ANP [address] [place] [address] Health Maintenance Due Date Last Done Comments Family Planning (PISQ) 2004 Hepatitis B Vaccines (1 of 3 - 19+ 3-dose series) 2008 Cervical Cancer Screening 09/06/2023 HPV/Cotest 09/06/2023 09/05/2022, 05/13, 10/01/2021, Additional history exists Depression Screening 10/02/2023 10/01/2022, 10/02/19 COVID-19 Vaccine ( season) 2024 01/03/2021, 12/13/2020 Influenza Vaccine (#1) 2024 Dental Oral Exam 07/13/2024 01/13/2024, 03/2021, 08/13/2018 Dental Prophylaxis 07/13/2024 01/13/2024, 1 05/26/2021, 03/08/2021, Additional history exists Pap Smear 07/28/2024 07/29/2023, 08/11, 06/05/2022, Additional history exists Dental X-Ray: Bitewings 01/13/2025 01/13/20 24, 04/10/2021, 08/13/2018 SDOH Screening 06/11/2025 06/11/2024 Alcohol/Substance Use Screening 06/25/2025 06/25/2024 Tobacco Screening 06/25/2025 06/25/2024 Dental X-Ray: Full Mouth 01/13/2027 024, 05/22/2020, 08/13/2018 DTaP/Tdap/Td Vaccines (4 - Td or Tdap) 10/30/2028 10/30/2018, 12/25/2017, 01/13/2015 Lipid Panel 02/26/2029 02/27/2024, 06/12, 03/10/2020 Zoster Vaccines (1 of 2) 09/20/2039 RSV Patients and Patients Aged 60 years or older (1 - 1-dose 75+ series) 2064 HIV Screening Completed 06/25/2024, 02/09, 01/28/2023, Additional history exists Hepatitis C Screening Completed 06/25/2024 , 02/27/2024, 01/28/2023, Additional history exists HIB Vaccines Aged Out [...] Procedure Name Priority Date/Time Associated Diagnosis Comments VITAMIN D,25-OH,TOTAL,IA Routine 06/25/2024 2:09 PM EST Vitamin D deficiency HEPATITIS C AB W/REFL TO HCV RNA, QN, PCR Routine 06/25/2024 2:09 PM EST Screening examination for STI RPR (MONITOR) W/REFL TITER Routine 06/25/2024 2:09 PM EST Screening examination for STI HIV 1/2 ANTIGEN/ANTIBODY, FOURTH GENERATION W/RFL Routine 06/25/2024 2:09 PM EST Screening examination for STI HEMOGLOBIN A1C Routine 06/25/2024 2:09 PM EST Fatigue, unspecified type CBC WITH AUTO DIFFERENTIAL Routine 06/25/2024 2:09 PM EST Fatigue, unspecified type CHLAMYDIA/N. GONORRHOEAE RNA, TMA, UROGENITAL Routine 06/25/2024 1:59 PM EST Screening examination for STI LIPID PANEL, STANDARD Routine 02/27/2024 2:35 PM [...] Recently Relevant to Health Maintenance Results * (ABNORMAL) Vitamin D, 25-Hydroxy, Total, Immunoassay (06/25/2024 2:09 PM EST) Vitamin D 25-OH Total 18.4(L) >30 ng/mL [facility] Comment:Health Based Referen ce Values*< 20 ng/mL Cbcmaxwau05-61 ng/mL Insufficient> 30 ng/mL Sufficient*Sander QUINONEZ. N Engl J Med. 2007;357:266-280Care must be taken in interpreting Vitamin D results fromdifferent laboratories and methodologies. Published datademonstrated that results from patients undergoinghemodialysis may show a negative bias when tested withvarious automated 25-OH vitamin D assays when compared toLC-MS/MS.When testing samples from patients whose predominant form ofVitamin D is Vitamin D2, such as patients receiving VitaminD2 supplementation, results that are subtherapeutic shouldbe confirmed with another method such as LC-MS/MS. Blood Venous blood specimen / Unknown 06/25/2024 2:09 PM EST 06/25/2024 4:09 PM EST Vick Boyd [facility] BLOOD ORDERABLES Final Resul t [facility] [address] [place] [phone] * (ABNORMAL) CBC auto differential (06/25/2024 2:09 PM EST) White Blood Count 9.5 4.8 - 10.8 X10*3/uL [facility] Red Blood Count 4.42 4.20 - 5.50 X10*6/uL [facility] Hemoglobin 12.7 12.0 - 16.0 g/dl [facility] Hematocrit 38.1 37.0 - 47.0 % [facility] Mean Corpuscular Volume 86.2 80.0 - 98.0 fL [facility] Mean Corpuscular Hemoglobin 28.7 27.0 - 33.0 pg [facility] Mean Corpuscular HGB Conc 33.3 31.0 - 35.0 g/dl [facility] Red Cell Distribution Width 12.4 11.0 - 16.0 % [facility] Platelet Count 311 160 - 400 X10*3/uL [facility] Mean Platelet Volume 9.5 9.4 - 12.3 fL [facility] Neutrophils Percent Auto 63.0 45 - 73 % [facility] Imm Gran Pct Auto 0.4 0.0 - 0.4 % [facility] Lymphocytes Percent Auto 27.7 20 - 40 % [facility] Monocytes Percent Auto 6.9 2 - 11 % [facility] Eosinophils Percent Auto 1.6 0 - 4 % [facility] Basophils Percent Auto 0.4 0 - 2 % [facility] NRBC Pct Auto 0.0 0.0 - 0.2 /100WBC [facility] Neutrophils Absolute Auto 6.0 2.0 - 8.3 x10*3/uL [facility] Imm Gran Abs Auto 0.04(H) 0.00 - 0.03 X10*3/uL [facility] Lymphocytes Absolute Auto 2.6 1.2 - 4.9 X10*3/uL [facility] Monocytes Absolute Auto 0.7 0.1 - 1.2 X10*3/uL [facility] Eosinophils Absolute Auto 0.2 0.0 - 0.4 X10*3/uL [facility] Basophils Absolute Auto 0.0 0.0 - 0.2 X10*3/uL [facility] NRBC Abs Auto 0.000 0.0 - 0.012 X10*3/uL [facility] Blood Venous blood specimen / Unknown 06/25/2024 2:09 PM EST 06/25/2024 4:09 PM EST us Vick Boyd [facility] BLOOD ORDERABLES Final Resul t Performing Organization Address [facility] Co de Phone Number [facility] [address] [place] [phone] * Hepatitis C Antibody with Reflex to HCV, RNA, Quantitative, Real-Time PCR (06/25/2024 2:09 PM EST) Hepatitis C Antibody Nonreactive Nonreactive [facility] Comment:Antibodies to HCV no t detected; does not exclude early acuteHCV infection. Blood Venous blood specimen / Unknown 06/25/2024 2:09 PM EST 06/25/2024 4:09 PM EST Vick Deirdre [facility] BLOOD ORDERABLES Final Resul t Performing Organization Address [facility] de Phone Number [facility] [address] [place] [phone] * RPR (Monitor) with Reflex to??Titer (06/25/2024 2:09 PM EST) RPR (Monitor) w/Refl Titer NON-REACTI VE NON-REACT DEREK [facility] Comment:THIS TEST WAS PERFOR MED AT:[facility] [place] [phone] STANTON MD Rapid Plasma Reagin Ab Titer TNP [facility] Blood Venous blood specimen / Unknown 06/25/2024 2:09 PM EST 06/25/2024 4:09 PM EST Vick Boyd [facility] BLOOD ORDERABLES Final Resul t Performing Organization Address [facility] Co de Phone Number [facility] [address] [place] [phone] * HIV-1/2 Antigen and Antibodies, Fourth Generation, with Reflexes (06/25/2024 2:09 PM EST) HIV AB/AG Nonreactive Nonreactive [facility] Comment:HIV-1 p24 Ag and/or HIV-1/HIV-2 Ab not detected.A test result that is nonreactive does not exclude thepossibility of exposure to or infection with HIV-1 and/orHIV-2. Nonreactive results in this assay for individualswith prior exposure to HIV-1 and/or HIV-2 may be due toantigen and antibody levels that are below the limit ofdetection of this assay.The [email or web address] HIV Ag/Ab Combo assay result andsupplemental assay results should be interpreted inconjunction with the patient's clinical presentation,history and other laboratory results. If the results areinconsistent with clinical evidence, additional testing issuggested to confirm the result. Blood Venous blood specimen / Unknown 06/25/2024 2:09 PM EST 06/25/2024 4:09 PM EST Vick Boyd ANP LAB BLOOD ORDERABLES Final Resul t Performing Organization Address [facility] Co de Phone Number [facility] [address] [place] [phone] * Hemoglobin A1c (06/25/2024 2:09 PM EST) Hemoglobin A1c 5.3 <6.0 % [facility] Comment:Hemoglobin A1C Refer ence Range Adults: 4.8 - 6.0 % Non diabetic: < 6.0 % Goal: < 7.0 %Additional Action Suggested: > 8.0 %Note: Hemoglobin A1c results are invalid for patients with abnormal amounts of HbF. Blood transfusions may impact the HbA1c concentration in the patient sample. Estimated Average Glucose 105 mg/dL [facility] Comment:eAG = Estimated ave rage glucose which is %A1C expressed asaverage glucose, using the formula of the M4E-UfnpivuJkixkcz Glucose study (ADAG), Diabetes Care, Vol.31,#8,Dec. 2007 Blood Venous blood specimen / Unknown 06/25/2024 2:09 PM EST 06/25/2024 4:09 PM EST us Vick Boyd ANP LAB BLOOD ORDERABLES Final Resul t Performing Organization Address [facility] Co de Phone Number [facility] [address] [place] [phone] * Chlamydia/N. Gonorrhoeae RNA, TMA, Urogenitial (06/25/2024 1:59 PM EST) CT PCR NOT DETECTED Not Detect. [facility] Comment:A not detected test result does not exclude the possibilityof infection because test results can be affected byimproper specimen collection, concurrent antibiotic therapy,or the number of organisms in the specimen which may bebelow the sensitivity of the test. As with many diagnostictests, results from the Xpert CT/NG assay should beinterpreted in conjunction with other laboratory andclinical data available to the clinician.Xpert CT/NG performance has not been evaluated in patientsless than 14 years of age. The assay should not be used forthe evaluationof suspected sexual abuse or for other medico-legalindications. Additional testing is recommended in anycircumstance when false positive or false negative resultscould lead to adverse medical, social or psychologicalconsequences. NG PCR NOT DETECTED Not Detect. [facility] Comment:A not detected test result does not exclude the possibilityof infection because test results can be affected byimproper specimen collection, concurrent antibiotic therapy,or the number of organisms in the specimen which may bebelow the sensitivity of the test. As with many diagnostictests, results from the Xpert CT/NG assay should beinterpreted in conjunction with other laboratory andclinical data available to the clinician.Xpert CT/NG performance has not been evaluated in patientsless than 14 years of age. The assay should not be used forthe evaluationof suspected sexual abuse or for other medico-legalindications. Additional testing is recommended in anycircumstance when false positive or false negative resultscould lead to adverse medical, social or psychologicalconsequences. Urine (Urine, Random) 06/25/2024 1:59 PM EST 06/25/2024 4:14 PM EST Narrative [facility] - 06/26/2024 3:53 AM EST Urine [facility] MICROBIOLOGY - GENERAL ORDER ARIANA Final Result [facility] [address] [place] [phone] * (ABNORMAL) Lipid Panel, Standard (02/27/2024 2:35 PM EDT) Triglycerides 93 <150 mg/dL [facility] Comment:Desirable Triglyceri de: less than 150 mg/dLBorderline High Triglyceride 150-199 mg/dLHigh Triglyceride: 200-499 mg/dLVery High Triglyceride: greater than or equal to 5OO mg/dL Cholesterol 165 <200 mg/dL [facility] Comment:Desirable Cholestero l: less than 200 mg/dLBorderline High Cholesterol: 200-239 mg/dLHigh Cholesterol: greater than 239 mg/dL LDL Cholesterol Calculated 105(H) <100 mg/dL [facility] Comment:Desirable LDL: less than 100 mg/dLNear Optimal/Above Optimal LDL: 110- 129 mg/dLBorderline High LDL: 130-159 mg/dLHigh LDL: 160-189 mg/dLVery High LDL: greater than or equal to 190 mg/dL HDL Cholesterol 42 >40 mg/dL [facility] Comment:Desirable HDL: great er than 40 mg/dL Note: This HDL assay may give artificially low results in patients with liver disease. Blood Venous blood specimen / Unknown 02/27/2024 2:35 PM EDT 02/27/2024 4:21 PM EDT [facility] LAB BLOOD ORDERABLES Final Resul t Performing Organization Address [facility] Co de Phone Number [facility] [address] [place] [address] [phone] * Pap Smear (07/29/2023 12:00 AM EDT) 07/29/2023 07/31/2023 1:0 0 PM EDT Narrative [facility] - 08/11/2023 1:16 PM EDT ----- ------- Name: Sandrine Resendiz ? Age/Sex: 32/F ? : 1990 Unit#: [id number] ?? Attend Dr: Roya Dodd CNM ?Re07/29/23 ?Status: DEP REF ? Location: HO.LNP ?Disch: ? ----- ------- SPEC : [id number] ? RECD: 07/31/23-1300 ? STATUS: ??SOUT ? REQ NUM: [id number] ? KINSEY: 07/29/23-0000 ? SUBM DR: Roya Dodd CNM ? ENTERED: ??07/31/23-1413 ?SP TYPE: Pap Smr ?OTHR : VICK BOYD NP ? ORDERED: ??Pap Smear ? Interpretation ?? Satisfactory for evaluation. ?? Moderate inflammation. ?? Negative for intraepithelial lesion or malignancy. ?HPV mRNA E6/E7: ?NOT DETECTED ? This assay detects E6/E7 viral messenger RNA (mRNA) from 14 high-risk HPV types (16, 18, ?? 31, 33, 35, 39, 45, 51, 52, 56, 58, 59, 66, 68) ?? HPV testing performed by [facility], [place], [place]. ??See reference laboratory ?? portion of the EMR for entire report. ?Clinical Information LMP: 07/14/23 Previous PAP test: 06/05/22, Abnormal ? Material Received ?? ThinPrep-Cervical Copies To: ?? Roya Dodd CNM ?? [address] ?? [place] [address] ?? [phone] ?? VICK BOYD NP ?? [address] [facility] [address] ?? [place] [address] ?? [phone] ----- ------- Signed (signature on file) BABATUNDE Bartholomew (ASC) 08/11/23 [id number] ? ----- ------- ? END OF REPORT ? us Generic External Data Provider LAB CYTOLOGY RASHADAngelita KUNALALESHA Final Result [facility] [address] [place] [phone] [phone] * (ABNORMAL) Image-Guided Pap with Age-Based Screening??with CT/NG,??Trichomonas (09/05/2022 10:13 AMEDT) Comment [employer] Comment: This order for age-based cervical cancer and STI screening follows ACOG guidelines(PB 168, 140, RNB119). See individual assays for performing site location. Clinical Information: ASCUS HPV NEG 2021 [facility] LMP: NONE GIVEN [facility] Prev. PAP: YES [facility] Prev. BX: NONE GIVEN [facility] SOURCE: None given [facility] Statement Of Adequacy: [employer] Comment: Satisfactory for evaluation. Endocervical/transformation zone component present. General Categorization: EPITHELIAL CELL ABNORMALITY(A) [facility] Interpretation/Re sult: Atypical Squamous Cells of Undetermined Significance (ASC-US)(A) [facility] COMMENT: This Pap test has been evaluated with computer assisted technology. [employer] Armature Repairer: [facility] Comment: YP, CT(ASCP) CT screening location: [address] ??[address] Review Armature Repairer: [facility] Comment: RMM, CT(ASCP) CT screening location: [address] ??[address] PATHOLOGIST: [facility] [employer] Comment: Halima Stanton M.D. , Board Certified in Anatomic and Clinical Pathology, Cytopathology and Immunopathology (electronic signature) (Always Message) [facility] [employer] [employer] [place] [employer] Comment: EXPLANATORY NOTE: The Pap is a [...] HPV nRNA E6/E7 Not Detected Not Detected [facility] [employer] Comment: Methodology: Customer Solutions Supervisor-Mediated Amplification This assay detects E6/E7 viral messenger RNA (mRNA) from 14 high-risk HPV types (16,18,31,33,35,39,45,51,52,56,58,59,66,68). Cervical sources are required for HPV testing. If a vaginal source from a patient who has had a total hysterectomy with removal of cervix was submitted, please contact the testing laboratory for alternative testing options. For additional information, please refer to http://[employer].LineMetrics/faq/FDE177r6 (This link if provided for information/ educational purposes only.) Chlamydia trachomatis RNA, TMA, Urogenital NOT DETECTED NOT DETECTED [facility] [employer] Neisseria gonorrhoeae RNA, TMA, Urogenital NOT DETECTED NOT DETECTED [facility] [employer] (Always Message) [facility] [employer] Comment: The analytical performance characteristics of this assay, when used to test SurePath(TM) specimens have been determined by [facility]. The modifications have not been cleared or approved by the FDA. This assay has been validated pursuant to the CLIA regulations and is used for clinical purposes. For additional information, please refer to https://[employer].LineMetrics/faq/JNI146 (This link is being provided for information/ educational purposes only.) Trichomonas vaginalis, QL, TMA, PAP Vial NOT DETECTED NOT DETECTED [facility] [employer] Comment: The analytical performance characteristics of this assay have been determined by [facility]. The modifications have not been cleared or approved by the FDA. This assay has been validated pursuant to the CLIA regulations and is used for clinical purposes. For additional information, please refer to http://education.[employer]/ faq/Trichomonastma (This link is being provided for information/ educational purposes only.) Pap Vial 09/05/2022 10:1 3 AM EDT 09/06/2022 5:38 AM EDT [facility] CYTOLOGY ORDERABLES F inal Result [facility] [address], [place] [address] [facility] [address] [place] [address] from Last 3 Months or Most Recently Relevant to Health Maintenance Insurance [facility] MEDICAID STAND ADULT Care Teams Tack Cleaner Relationship Specialty Start Date End Date Vick Boyd ANP [address] [place] [phone] PCP - General Family Medicine 05/26/20
--- OUTSIDE RECORDS SUMMARY | 2024-08-03 12:07 | XMS_ITS | Encounter Summary ---
Author Organization [facility] Address [address] [place] [address] Care Team Providers Care Employment Law Attorney Name Role Phone Chelsi Gilmore NP Primary Care Provider [phone] Reason for Referral * Neurology (Routine) - Authorized Specialty Diagnoses / Procedures Referred By Contac t Referred To Contact Neurology Diagnoses Fibromyalgia Neuritis Procedures EMG two limbs Malcom Lin DPM [address] [address] Phone: tel: fax: [facility] [address] [place] [address] Phone: tel: fax: Referral ID Status Reason Start Date Expiration Date V isits Requested Visits Authorized [id number] Authorized 07/14/2024 07/14/2025 1 1 Reason for Visit * Reason Comments Consult NPV right ankle and plantar pain * Consultation (Routine) - Closed Specialty Diagnoses / Procedures Referred By Contact Referred To Contact Podiatry / Orthopaedic Surgery Diagnoses Pain in right foot Chelsi Gilmore NP [address] [address] Phone: tel: Malcom Lin DPM [address] [address] Phone: tel: fax: Referral ID Status Reason Start Date Expiration Date V isits Requested Visits Authorized [id number] Closed Specialty Services Required 04/20/2024 04/01/2025 6 6 Encounter Details Date Type Department Care Team ([facility] st Contact Info) Description 07/14/2024 1:45 PM EST Office Visit Orthopedic Surgery - [place] 250 175 [facility] 250 [place] [phone] Malcom Lin DPM [address] [address] Fibromyalgia (Primary Dx); Pain in right foot; Neuritis Social History Tobacco Use Types Packs/Day Years Used Date Smoking Tobacco: Never Assessed Comments Unknown Sex and Gender Information Value Date Recorded Sex Assigned at Not on file Legal Sex Female 11:01 AM EDT Gender Identity Not on file Sexual Orientation Not on file documented as of this encounter Last Filed [...] Mass Index 33.61 07/14/2024 1:45 PM EST documented in this encounter Progress Notes * Malcom Lin DPM - 07/14/2024 1:45 PM EST Last PCP visit:Referring MD: Chelsi Gilmore NP IDENTIFIER: Astrid is a 33 y.o. year old female who presents for consultation. CC: Foot pain HPI: Patient presents today with multiple complaints she reports she has numbness burning ting in both lower extremities has a history of sciatica reports that he has fibromyalgia has chronic pain discomfort of both lower extremities she is is mostly in her right knee but goes down to her feet she states that she is seen by rheumatology she states she needs x-rays of her right foot she states that shethinks that something bad is happening they are aware that there is a type of bone spur fan runner ID number [id number] ROS: GENERAL: Pt denies nausea, fever, vomiting, chills, or shortness of breath. Pt in NAD. CARDIOLOGY: pt denies chest pain, palpitations LUNGS: pt denies shortness of breath MUSCULOSKELETAL: See HPI, otherwise no joint pain or swelling, back pain, or muscle pain. SKIN: see HPI, otherwise no lesions, rash or itching NEURO: No persistent headache, weakness or numbness The remainder of the review of systems is noncontributory PAST MEDICAL HISTORY: Patient Active Problem List Diagnosis Heel pain Ankle pain, right Sciatica associated with disorder of lumbar spine Lower back pain Bilateral knee pain Hemorrhoids Fibromyalgia SOCIAL HISTORY: Social History Tobacco Use Smoking status: Not on file Smokeless tobacco: Not on file Substance Use Topics Alcohol use: Not on file ACTIVE MEDICATIONS: No outpatient medications have been marked as taking for the 07/14/24 encounter (Office Visit) with Malcom Lin DPM. ALLERGIES: Allergies Allergen Reactions Aspirin PHYSICAL EXAM: Visit Vitals Ht 1.651 m (65 ) Wt 91.6 kg (202 lb) BMI 33.61 kg/m?? BSA 1.99 m?? PODIATRIC EXAMINATION: GENERAL: Patient appears well nourished, with NAD. VASCULAR: Dorsalis pedis pulses are 2/4 bilaterally and Posterior tibial pulses are 2/4 bilaterally. Capillary filling time within normal limits the digits. No pallor on elevation or rubor on dependency. No varicosities. Denies rest pain or claudication pain. NEUROLOGICAL: Sharp/dull sensation intact, protective sensation intact 10/10 with 5.07 semmes lesa bilaterally, vibratory sensation with tuning fork intact to the tibial tuberosity. ORTHOPEDIC: Good muscle strength 5/5 of all flexors and extensors. Dorsi flexion of ankle ,10 degrees, plantar flexion WNL. No muscle atrophy. DERMATOLOGICAL:.No masses or skin lesions noted. Normal skin temperature, normal skin turgor. BIOMECHANICS: Ankle ROM WNL, STJ ROM wnl, MTJ ROM wnl, 1st MPJ ROM wnl. IMAGING: IMPRESSION: 1. Fibromyalgia 2. Pain in right foot 3. Neuritis PLAN: Pt was seen and examined, history reviewed. Greater than 45 minutes was taken with this patient reviewing all of her medical records in detail with her and her complex past medical history as well as discussing all her medical problems with her to the best of my ability with fan runner utilized [id number] After lengthy discussion with radiographs that are negative for any acute findings complex past medical history of fibromyalgia treated with rheumatology Nerve conductive study ordered as patient is reporting worsening numbness burning tingling both lower extremities Follow-up in 1 month Malcom Lin DPM documented in this encounter Plan of Treatment Upcoming Encounters Date Type Department Care Team (Late st Contact Info) Description 08/24/2024 9:45 AM EDT Office Visit Orthopedic Surgery - [place] [address] [phone] Malcom Lin DPM [address] [address] Scheduled Orders Name Type Priority Associated Diagnoses Orde r Schedule EMG two limbs Neurology Routine Fibromyalgia Neuritis 1 Occurrences starting 07/14/2024 until 07/14/2025 documented as of this encounter Results * XR Foot 3+ Views Right [...] DPM IMG XR PROCEDURES Final R esult documented in this encounter Visit Diagnoses Diagnosis Fibromyalgia- Primary Unspecified myalgia and myositis Pain in right foot Pain in soft tissues of limb Neuritis Unspecified neuralgia, neuritis, and radiculitis documented in this encounter Orders Outpatient Referral Count Last Ordered Date Fir st Ordered Date AMB REFERRAL TO PODIATRY 1 07/14/2024 documented in this encounter Care Teams Employment Law Attorney Relationship Specialty Start Date End Date Chelsi Gilmore NP 230 [facility] 1 [place] [address] PCP - General 09/02/23 documented as of this encounter
--- OUTSIDE RECORDS SUMMARY | 2024-08-03 12:08 | XMS_ITS | Encounter Summary ---
Author Organization [facility] Address [address] [facility] 7t [place] [address] Care Team Providers Care Hourly Manager Name Role Phone Chelsi Gilmore Primary Care Provider [phone] Encounter Details Date Type Department Care Team (Late st Contact Info) Description 07/23/2024 Population Health Risk Score [facility] (C[facility]) Department [address] [address] Provider, Population Health Generic Social History Tobacco Use Types Packs/Day Years [...] as of this encounter Plan of Treatment Upcoming Encounters Date Type Department Care Team (Late st Contact Info) Description 09/23/2024 9:15 AM EDT Office Visit [facility] 230 [place] [address] Chelsi Gilmore ANP 230 [place] [address] documented as of this encounter Visit Diagnoses Not on filedocumented in this encounter Additional Health Concerns Assessment Noted Time PHQ-9 Depression Total Score: 4 10/02/19 23 2:23 PM EDT documented as of this encounter Care Teams Hourly Manager Relationship Specialty Start Date End Date Chelsi Gilmore ANP [address] [place] [address] PCP - General Family Medicine 05/26/20 documented as of this encounter
--- OUTSIDE RECORDS SUMMARY | 2024-08-03 12:08 | XMS_ITS | Encounter Summary ---
Author Organization [facility] Address [address] [facility] [address] h Floor [place] [id number] Care Team Providers Care Brakes Inspector Name Role Phone Chelsi Gilmore Primary Care Provider [phone] Encounter Details Date Type Department Care Team (Latest Contact Info) Description 07/17/2020 Abstract [facility] CONVERSIONS Dental, Provider, DDS Social History [...] Description 09/23/2024 9:15 AM EDT Office Visit [facility] 230 [place] [address] Chelsi Gilmore ANP 230 [place] [address] documented as of this encounter Visit Diagnoses Not on filedocumented in this encounter Care Teams Brakes Inspector Relationship Specialty Start Date End Date Chelsi Gilmore ANP 230 [place] [address] PCP - General Family Medicine 05/26/20 documented as of this encounter
--- OUTSIDE RECORDS SUMMARY | 2024-08-03 12:08 | XMS_ITS | Encounter Summary ---
Author Organization [facility] Address [address] [facility] 7t h Floor [place] [id number] Care Team Providers Care Pickling Operator Name Role Phone Chelsi Gilmore Primary Care Provider [phone] Encounter Details Date Type Department Care Team (Latest Contact Info) Description 09/01/2018 Abstract [facility] CONVERSIONS Dental, Provider, DDS Social History [...] Description 09/23/2024 9:15 AM EDT Office Visit [facility] MEDICINE 230 [place] [address] Chelsi Gilmore ANP 230 [place] [address] documented as of this encounter Visit Diagnoses Not on filedocumented in this encounter Care Teams Pickling Operator Relationship Specialty Start Date End Date Chelsi Gilmore ANP 230 [place] [address] PCP - General Family Medicine 05/26/20 documented as of this encounter
== END 2024-08-03 11:17 | disposition home or self-care (01) ==
LOC: HO.HWSM 10:11
PROVIDERS: PCP Nurse Practitioner Primary Care; Visit Provider Advanced Practice Midwife
DX: Z01.419 Encounter for gynecological examination (general) (routine) without abnormal findings (principal); Z87.42 Personal history of other diseases of the female genital tract; R10.2 Pelvic and perineal pain; Z11.3 Encounter for screening for infections with a predominantly sexual mode of transmission; E66.9 Obesity, unspecified
CPT/HCPCS: 99395; 99459

== ENCOUNTER 2024-08-03 10:10 | Outpatient (REF) | payer MEDICAID, SELFPAY ==
[2024-08-04 06:06] LABS: CT PCR NOT DETECTED (Not Detect.); NG PCR NOT DETECTED (Not Detect.)
[2024-08-04 13:06] LABS: Bacterial Vaginosis PCR POSITIVE (Negative); Candida Group PCR NOT DETECTED (Not Detect); Candida glab krusei PCR NOT DETECTED (Not Detect); Trichomonas vaginalis PCR NOT DETECTED (Not Detect)
== END 2024-08-03 10:11 | disposition home or self-care (01) ==
LOC: HO.LAB 10:10
PROVIDERS: PCP Nurse Practitioner Primary Care; Visit Provider Advanced Practice Midwife
DX: Z01.419 Encounter for gynecological examination (general) (routine) without abnormal findings (principal); N89.8 Other specified noninflammatory disorders of vagina; Z20.2 Contact with and (suspected) exposure to infections with a predominantly sexual mode of transmission; R10.2 Pelvic and perineal pain; E66.9 Obesity, unspecified; Z68.35 Body mass index [BMI] 35.0-35.9, adult; Z71.3 Dietary counseling and surveillance; Z87.42 Personal history of other diseases of the female genital tract
CPT/HCPCS: 81515; 87491; 87591; 99395; 99459

== ENCOUNTER 2024-09-23 10:32 | Outpatient (AMB) | payer MEDICAID, SELFPAY ==
--- NOTE | 2024-09-23 10:42 | A.OFFVIS_ITS ---
Vital Signs 09/23/24 10:45 Height 5 ft 5 in Weight 216 lb 6 oz BMI 36.0 BP 120/80 Blood Pressure Location Rt brachial Position Sitting Pulse 68 Pulse Oximetry (%) 100 Oxygen Delivery Method Room Air Intake Visit Reasons: Fibromyalgia/time changed per patient req Intake Note: Pain today 9/10 Employee Development Manager Required: No Accompanied by: Self / Same As Patient Allergies aspirin [ASPIRIN] Allergy (Intermediate, Verified 09/23/24 10:46) RASH, shortness of breath HPI Comments Details: Sandrine is a very pleasant 34 years old female who presents in my office with complains on multiple pain generators including pain in bilateral ankles pain in bilateral knees pain in bilateral shoulders as well as pain in the right 3rd finger and sensation of numbness in that finger. She reports her pain today is 8/10. She reports that she has able to sleep normally, she can do activities of daily living, she is able to take care of herself, she can function normally. She is working part-time. She reports that weather changes in motions aggravate her pain and application of the cold make her pain better. 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 She tried antidepressants and antidepressants make you feel rage. She tried NSAIDs for her pain she is allergic to aspirin and NSAIDs are contraindicated for her. She tried physical therapy in the past however the patient reports that physical therapy grossly aggravated her pain. She had multiple consults with orthopedic surgery about her knee pain the offered her knee injection but she refused. I also offered her today any injection and she also refused. I offered her Celebrex however I am unable to prescribe Celebrex because of her aspirin allergy. She denies any past medical history, surgical history is bilateral tubal ligation and gallbladder surgery, she admits smoking marijuana denies smoking cigarettes, denies drinking alcohol, denies caffeinated beverages. [facility] Medical History Pain of plantar aspect of heel Ankle pain, right Sciatica associated with disorder of lumbar spine Lower back pain Left knee pain Bilateral knee pain Hemorrhoids Fibromyalgia Surgical History Tubal ligation status Family History Father Diabetes Mother Diabetes Social History Household Members: Children Alcohol intake: current Alcohol intake frequency: holidays/special occasions only Patient Tobacco Use Status: Never used Tobacco Substance Use Type: Marijuana Current occupational status: employed Current occupation: [employer] Female Reproductive History Menstrual Age of Menarche: 11 Review of Systems Const All systems reviewed & are unremarkable except as noted in HPI and below ENT Reports Normal hearing present Neuro Reports Normal hearing present, Denies Abnormal speech present, Denies confusion and Denies Sensory deficit (Neuro) Psych Denies confusion Physical Exam Vital Signs: Last Vital Signs Pulse 68 09/23/24 10:45 BP 120/80 09/23/24 10:45 Pulse Ox 100 09/23/24 10:45 Oxygen Delivery Method Room Air 09/23/24 10:45 BMI result Body Mass Index 36.0 Const General: no acute distress; No confusion Nutritional Appearance: obese morbidly obese Orientation/consciousness: patient oriented x3 and No confusion Eyes General: appearance normal, both eyes and all related structures Pupils: Equal, round and reactive pupils present EOM: EOMs intact bilaterally Neck Neck: Yes full ROM Chest Chest palpation & inspection: normal inspection of the chest Resp Effort & Inspection: normal respiratory effort, able to speak in complete sentences, normal respiratory pattern, no audible wheezes and no cough Cardio Jugular venous distension: no JVD GI Inspection: Yes normal to inspection Back/Spine/Pelvis Other: Severe gross crepitus on palpation with bilateral knee motions. Neuro General: patient oriented x3, gait normal and No confusion Cranial nerves: Yes CN's II-XII intact bilaterally, Yes Equal, round and reactive pupils present, Yes Normal hearing present and Yes Ability to bilaterally elevate shoulders present Speech: No Abnormal speech present Gait exam (Neuro): Normal gait present Motor exam (neuro): 5/5 motor strength present throughout Sensory Exam: No Sensory deficit (Neuro) Extrem General: No pedal edema Psych Speech and movement: Normal speech and movement present Affect: normal affect Attitude: cooperative Thought process: Normal thought process present Thought content: Normal thought content present Insight: Good insight present (Psych) Judgement: Good judgement present (Psych) Assessment & Plan Assessment & Plan (1) Osteoarthritis: Code(s): M19.90 - Unspecified osteoarthritis, unspecified site Category: Medical (2) Bilateral knee pain: Code(s): M25.561 - Pain in right knee; M25.562 - Pain in left knee Category: Medical Qualifiers: Chronicity: chronic Qualified Code(s): M25.561 - Pain in right knee; M25.562 - Pain in left knee; G89.29 - Other chronic pain (3) Patellofemoral arthritis of right knee: Code(s): M17.11 - Unilateral primary osteoarthritis, right knee Category: Medical (4) Lower back pain: Code(s): M54.50 - Low back pain, unspecified Category: Medical Qualifiers: Chronicity: chronic Back pain laterality: bilateral Sciatica presence: without sciatica Qualified Code(s): M54.50 - Low back pain, unspecified; G89.29 - Other chronic pain (5) Ankle pain, right: Code(s): M25.571 - Pain in right ankle and joints of right foot Category: Medical Qualifiers: Chronicity: chronic Qualified Code(s): M25.571 - Pain in right ankle and joints of right foot; G89.29 - Other chronic pain (6) Pain of plantar aspect of heel: Code(s): M79.673 - Pain in unspecified foot Category: Medical Plan This patient is suffering from widespread osteoarthritis. I offered her Celebrex however her allergy to aspirin is too severe for me to prescribe the Celebrex. I offered her physical therapy she refused and she stated that physical therapy only aggravated her pain. I offered her intra-articular knee steroid injections and out of concern of steroid complications patient refused to accept the knee steroid injection. Therefore I fortunately can not offer her anything unless she will change her mind about injections. Coding Level of Care Code New Pt Level 3 (39615) Diagnoses Osteoarthritis M19.90 Chronic pain of both knees M25.561; M25.562; G89.29 Chronicity: chronic Patellofemoral arthritis of right knee M17.11 Chronic bilateral low back pain without sciatica M54.50; G89.29 Chronicity: chronic Back pain laterality: bilateral Sciatica presence: without sciatica Chronic pain of right ankle M25.571; G89.29 Chronicity: chronic Pain of plantar aspect of heel M79.673
[2024-09-23 10:45] VITALS: BP 120/80; PULSE 68; O2SAT 100; BMI 36.0
--- OUTSIDE RECORDS SUMMARY | 2024-09-23 11:42 | XMS_ITS | Encounter Summary ---
Author Organization [employer] [facility] Address [address] [facility] 7t [place] [address] Care Team Providers Care Security Operations Analyst Name Role Phone Chelsi Gilmore Primary Care Provider [phone] Encounter Details Date Type Department Care Team (Latest Contact Info) Description 09/01/2018 Abstract [facility] CONVERSIONS Dental, Provider, DDS Social History Tobacco [...] Care Team (Late st Contact Info) Description 09/28/2024 9:00 AM EDT Office Visit [facility] ADULT [facility] 230 [place] [address] Donald Cantu DDS 230 [place] [address] 03/14/2025 1:00 PM EST Office Visit [facility] ADULT [facility]ENTAL 230 [place] [address] Maxime, Jnaiya 230 [place] [address] documented as of this encounter Visit Diagnoses Not on filedocumented in this encounter Care Teams Security Operations Analyst Relationship Specialty Start Date End Date Chelsi Gilmore ANP 230 [place] [address] PCP - General Family Medicine 05/26/20 documented as of this encounter
--- OUTSIDE RECORDS SUMMARY | 2024-09-23 11:42 | XMS_ITS | Encounter Summary ---
Author Organization [employer] Address [address] [facility] 7t [place] [address] Care Team Providers Care Lunchroom Food Service Supervisor Name Role Phone Chelsi Gilmore PACO Primary Care Provider [phone] Reason for Visit * Reason Onset Date Comments CHART PREP 09/22/2024 Encounter Details Date Type Department Care Team (Late st Contact Info) Description 09/22/2024 Telephone [facility] 230 [place] [address] Bianca Clement MA CHART PREP Social History Tobacco Use Types Packs/Day Years [...] AM EDT documented as of this encounter Miscellaneous Notes * Telephone Encounter - Bianca Clement MA - 09/22/2024 1:54 PM EDT ..Chart Prep Labs: done Images: done Referrals: Not done Vaccines due: Hep B Screenings: pap smear Overdue care gaps: PHQ-9, DEBBIE-7, and Disability screen documented in this encounter Plan of Treatment Upcoming Encounters Date Type Department Care Team (Late st Contact Info) Description 09/28/2024 9:00 AM EDT Office Visit [facility] ADULT DENTAL 230 [place] [address] Donald Cantu DDS 230 [place] [address] 03/14/2025 1:00 PM EST Office Visit [facility] ADULT DENTAL 230 [place] [address] MaximeJaniya 230 [place] [address] documented as of this encounter Visit Diagnoses Not on filedocumented in this encounter Additional Health Concerns Assessment Noted Time PHQ-9 Depression Total Score: 4 10/02/19 23 2:23 PM EDT documented as of this encounter Care Teams Lunchroom Food Service Supervisor Relationship Specialty Start Date End Date Chelsi Gilmore ANP 230 [place] [address] PCP - General Family Medicine 05/26/20 documented as of this encounter
--- OUTSIDE RECORDS SUMMARY | 2024-09-23 11:42 | XMS_ITS | Encounter Summary ---
Author Organization [employer] [facility] Address [address] [facility] 7 [place] [address] Care Team Providers Care Assembler Brazer Name Role Phone Chelsi Gilmore Primary Care Provider [phone] Encounter Details Date Type Department Care Team (Latest Contact Info) Description 07/17/2020 Abstract [facility] CONVERSIONS Dental, Provider, DDS Social History Tobacco [...] Description 09/28/2024 9:00 AM EDT Office Visit [facility] ADULT DENTAL 230 [place] [address] Donald Cantu DDS 230 [place] [address] 03/14/2025 1:00 PM EST Office Visit [facility] ADULT DENTAL 230 [place] [address] Maxime, Janiya 230 [place] [address] documented as of this encounter Visit Diagnoses Not on filedocumented in this encounter Care Teams Assembler Brazer Relationship Specialty Start Date End Date Chelsi Gilmore ANP 230 [place] [address] PCP - General Family Medicine 05/26/20 documented as of this encounter
--- OUTSIDE RECORDS SUMMARY | 2024-09-23 11:42 | XMS_ITS | Clinical Summary ---
Author Organization [employer] Address [address] [facility] 7t [place] [address] Care Team Providers Care Canine Deputy Name Role Phone Vick Boyd PACO Primary Care Provider [phone] Allergies Active Allergy Reactions Criticality Noted Date Comments Aspirin 01/04/2014 Other reaction(s): Trouble Breathing,Rash,Itchy Eye Medications cholecalciferol (Vitamin D-3) 25 MCG (1000 UT) capsuleIndicati ons:Vitamin D deficiency Take 1 capsule (25 mcg) by mouth Once per day. 90 capsule 08/04/2024 Active Active Problems Problem Noted Date Diagnosed Date Dental caries 08/13/2024 Orthodontic treatment stopped 08/13/2024 Dental plaque 01/13/2024 Missing teeth, acquired 01/13/2024 [...] Encounters Date Type Department Care Team Description 09/23/2024 Telephone [facility] [address] [place] [phone] Vick Boyd ANP 09/22/2024 Telephone [facility] [address] [place] [phone] Bianca Clement MA CHART PREP 09/09/2024 Telephone [facility] [address] [place] [address] Donald Cantu DDS mail referral scanned on 08/1308/31/2024 3:00 PM EDT Office Visit [facility] [address] [place] [address] Janiya Swartz Dental plaque (Primary Dx) 08/13/2024 10:30 AM EDT Office Visit [facility] [address] [place] [address] Donald Cantu DDS Dental caries (Primary Dx); Dental plaque; Orthodontic treatment stopped 08/04/2024 Telephone [facility] [address] [place] [phone] Roya Posey RN Results 08/04/2024 Orders Only [facility] [address] [place] [phone] Vick Boyd ANP Vitamin D deficiency (Primary Dx) 07/23/2024 Population Health Risk Score [facility] () Department [address] [place] [phone] Provider, Population Health Generic from Last 3 Months Immunizations Immunization Administration Dates Next Due MMR 03/25/2015 Pfizer [...] Sign Reading Time Taken Comments Blood Pressure 126/74 08/31/2024 3:04 PM EDT Pulse 68 06/25/2024 1:13 PM EST Temperature [...] Description 09/28/2024 9:00 AM EDT Office Visit [facility] [address] [facility], [place] [phone] Donald Cantu DDS [address] [place], [place] [phone] 03/14/2025 1:00 PM EST Office Visit [facility] [address] [facility], [place] [phone] Silver Swartzaris [address] [facility], [place] [phone] Health Maintenance Due Date Last Done Comments Family Planning (PISQ) 2004 Hepatitis B Vaccines (1 of 3 - 19+ 3-dose series) 2008 Cervical Cancer Screening 09/06/2023 HPV/Cotest 09/06/2023 09/05/2022, 05/13, 10/01/2021, Additional history exists Depression Screening 10/02/2023 10/01/2022, 10/02/19 COVID-19 Vaccine ( season) 2024 01/03/2021, 12/13/2020 Influenza Vaccine (#1) 2024 Pap Smear 07/28/2024 07/29/2023, 08/11, 06/05/2022, Additional history exists Dental Oral Exam 02/13/2025 08/13/2024, 07/2023, 05/22/2020, Additional history exists Dental Prophylaxis 03/03/2025 08/31/2024, 0 01/13/2024, 03/26/2022, Additional history exists SDOH Screening 06/11/2025 06/11/2024 Alcohol/Substance Use Screening 06/25/2025 06/25/2024 Dental X-Ray: Bitewings 08/14/2025 08/14/19, 01/13/2024, 04/10/2021, Additional history exists Tobacco Screening 08/31/2025 08/31/2024 Dental X-Ray: Full Mouth 01/13/2027 024, 05/22/2020, [...] age to complete this topic Meningococcal B Vaccine Aged Out No l onger eligible based on patient's age to complete [...] Procedure Name Priority Date/Time Associated Diagnosis Comments ORAL HYGIENE INSTRUCTIONS Routine 08/31/2024 3:00 PM EDT Dental plaque CASE PRESENTATION, DETAILED AND EXTENSIVE TREATMENT PLANNING Routine 08/31/2024 3:00 PM EDT Dental plaque PROPHYLAXIS - ADULT Routine 08/31/2024 3 :00 PM EDT Dental plaque CASE PRESENTATION, DETAILED AND EXTENSIVE TREATMENT PLANNING Routine 08/13/2024 10:30 AM EDT INTRAORAL - PERIAPICAL EACH ADDITIONAL RADIOGRAPHIC IMAGE Routine 08/13/2024 10:30 AM EDT INTRAORAL - PERIAPICAL FIRST RADIOGRAPHIC IMAGE Routine 08/13/2024 10:30 AM EDT BITEWINGS - 4 RADIOGRAPHIC IMAGES Routine 08/13/2024 10:30 AM EDT PERIODIC ORAL EVALUATION - ESTABLISHED PATIENT Routine 08/13/2024 10:30 AM EDT BACTERIAL VAGINOSIS PANEL Routine 08/03/2024 12:00 AM EDT CHLAMYDIA/N. GONORRHOEAE RNA, TMA, UROGENITAL Routine 08/03/2024 12:00 AM EDT HEPATITIS C AB W/REFL TO HCV RNA, QN, PCR Routine 06/25/2024 2:09 PM EST Screening examination for STI HIV 1/2 ANTIGEN/ANTIBODY, FOURTH GENERATION W/RFL Routine 06/25/2024 2:09 PM EST Screening examination for STI LIPID PANEL, STANDARD Routine 02/27/2024 2:35 PM EDT Elevated random blood glucose level INTRAORAL - COMPLETE SERIES OF RADIOGRAPHIC IMAGES Routine 01/13/2024 1:00 PM EDT Dental plaque Missing teeth, acquired PAP SMEAR Routine 07/29/2023 12:00 AM EDT IMAGE-GUIDED PAP W/AGE BASED SCR,W/CT/NG/TRICH Routine 09/05/2022 10:13 AM EDT Atypical squamous cells of undetermined significance (ASCUS) on Papanicolaou smear of cervix from Last 3 Months or Most Recently Relevant to Health Maintenance Results * (ABNORMAL) Bacterial Vaginosis (08/03/2024 12:00 AM EDT) TRICHOMONAS VAGINALIS DETECTION BY PCR NOT DETECTED Not Detect [facility] BACTERIAL VAGINOSIS DETECTION BY PCR POSITIVE(A) Negative [facility] Comment:The BV organism targ ets of the Xpert Xpress MVP test can becommensal in women; Xpert Xpress MVP positive results forbacterial vaginosis should be considered in conjunction withother clinical and patient information to determine thedisease status. Organisms that are not detected by the XpertXpress MVP test have also been reported to be associatedwith BV and aerobic vaginitis.The Xpert Xpress MVP test performance has not been evaluatedin patients under the age of 14. JENNY GROUP DETECTION BY PCR NOT DETECTED Not Detect [facility] Jenny glab krusei PCR NOT DETECTED Not Detect [facility] 08/03/2024 08/03/2024 us Generic External Data Provider LAB MICROBIOLOGY - GENERAL ORDERABLES Final Result [facility] [address] [place] [address] [phone] * Chlamydia/N. Gonorrhoeae RNA, TMA, Urogenitial (08/03/2024 12:00 AM EDT) CT PCR NOT DETECTED Not Detect. [facility] Comment:A not detected test result does [...] psychologicalconsequences. NG PCR NOT DETECTED Not Detect. [facility] Comment:A not detected test result does [...] lead to adverse medical, social or psychologicalconsequences. 08/03/2024 08/03/2024 Narrative [facility] - 08/04/2024 6:06 AM EDT Vaginal [facility] External Data Provider LAB MICROBIOLOGY - GENERAL ORDERABLES Final Result Performing Organization Address [facility]/ZIP Co de Phone Number [facility] [address] [place] [phone] * Hepatitis C Antibody with Reflex to HCV, RNA, Quantitative, Real-Time PCR (06/25/2024 2:09 PM EST) Hepatitis C Antibody Nonreactive Nonreactive [facility] Comment:Antibodies to HCV no t detected; does not exclude early acuteHCV infection. Blood Venous blood specimen / Unknown 06/25/2024 2:09 PM EST 06/25/2024 4:09 PM EST [facility] LAB BLOOD ORDERABLES Final Resul t Performing Organization Address [facility] Co de Phone Number [facility] [address] [place] [address] [phone] * HIV-1/2 Antigen and Antibodies, Fourth Generation, with Reflexes (06/25/2024 2:09 PM EST) HIV AB/AG Nonreactive Nonreactive [facility] Comment:HIV-1 p24 Ag and/or HIV-1/HIV-2 Ab not detected.A test result that is nonreactive does not exclude thepossibility of exposure to or infection with HIV-1 and/orHIV-2. Nonreactive results in this assay for individualswith prior exposure to HIV-1 and/or HIV-2 may be due toantigen and antibody levels that are below the limit ofdetection of this assay.The [employer] HIV Ag/Ab Combo assay result andsupplemental assay results should be interpreted inconjunction with the patient's clinical presentation,history and other laboratory results. If the results areinconsistent with clinical evidence, additional testing issuggested to confirm the result. Blood Venous blood specimen / Unknown 06/25/2024 2:09 PM EST 06/25/2024 4:09 PM EST Vick Boyd ANP LAB BLOOD ORDERABLES Final Resul t Performing Organization Address [facility] Co de Phone Number [facility] [address] [place] [address] [phone] * (ABNORMAL) Lipid Panel, Standard (02/27/2024 2:35 PM EDT) Triglycerides 93 <150 mg/dL [facility] Comment:Desirable Triglyceri de: less than 150 mg/dLBorderline High Triglyceride 150-199 mg/dLHigh Triglyceride: 200-499 mg/dLVery High Triglyceride: greater than or equal to 5OO mg/dL Cholesterol 165 <200 mg/dL [facility] Comment:Desirable Cholestero l: less than 200 mg/dLBorderline High Cholesterol: 200-239 mg/dLHigh Cholesterol: greater than 239 mg/dL LDL Cholesterol Calculated 105(H) <100 mg/dL [facility] Comment:Desirable LDL: less than 100 mg/dLNear Optimal/Above Optimal LDL: 110- 129 mg/dLBorderline High LDL: 130-159 mg/dLHigh LDL: 160-189 mg/dLVery High LDL: greater than or equal to 190 mg/dL HDL Cholesterol 42 >40 mg/dL [facility] Comment:Desirable HDL: great er than 40 mg/dL Note: This HDL assay may give artificially low results in patients with liver disease. Blood Venous blood specimen / Unknown 02/27/2024 2:35 PM EDT 02/27/2024 4:21 PM EDT Vick Boyd ANP LAB BLOOD ORDERABLES Final Resul t Performing Organization Address City/[facility]/ZIP Co de Phone Number [facility] [address] [place] [address] [phone] * Pap Smear (07/29/2023 12:00 AM EDT) 07/29/2023 07/31/2023 1:0 0 PM EDT Narrative [facility] - 08/11/2023 1:16 PM EDT ----- ------- Name: Sandrine Resendiz ? Age/Sex: 32/F ? : 1990 Unit#: [id number] ?? Attend Dr: Roya Dodd CNM ?Re07/29/23 ?Status: DEP REF ? Location: HO.LNP ?Disch: ? ----- ------- SPEC : [id number] ? RECD: 07/31/23-1300 ? STATUS: ??SOUT ? REQ NUM: [id number] ? KINSEY: 07/29/23-0000 ? SUBM DR: Roya [...] 66, 68) ?? HPV testing performed by [facility], [place], [place]. ??See reference laboratory ?? portion of the EMR for entire report. ?Clinical Information LMP: 07/14/23 Previous PAP test: 06/05/22, Abnormal ? Material Received ?? ThinPrep-Cervical Copies To: ?? Roya Dodd CNM ?? [address] ?? [place] [address] ?? [phone] ?? VICK BOYD NP ?? [address] [facility] [address] ?? [place] [address] ?? [phone] ----- ------- Signed (signature on file) BABATUNDE Bartholomew (ASCP) 08/11/23 1316 ? ----- ------- ? END OF REPORT ? us Generic External Data Provider LAB CYTOLOGY KELSEY WALLACE Final Result [facility] [address] [place] [address] [phone] * (ABNORMAL) Image-Guided Pap with Age-Based Screening??with CT/NG,??Trichomonas (09/05/2022 10:13 AMEDT) Comment [employer] [employer] Comment: This order for age-based cervical cancer and STI screening follows ACOG guidelines(PB 168, 140, BUR541). See individual assays for performing site location. Clinical Information: ASCUS HPV NEG 2021 [facility] LMP: NONE GIVEN [facility] Prev. PAP: YES [facility] Prev. BX: NONE GIVEN [facility] SOURCE: None given [facility] Statement Of Adequacy: [facility] Comment: Satisfactory for evaluation. Endocervical/transformation zone component present. General Categorization: EPITHELIAL CELL ABNORMALITY(A) [facility] Interpretation/Re sult: Atypical Squamous Cells of Undetermined Significance (ASC-US)(A) [facility] [employer] COMMENT: This Pap test has been evaluated with computer assisted technology. [facility] [employer] Middle Card Tender: [employer] [place] [employer] Comment: YP, CT(ASCP) CT screening location: [address] ??[phone] Review Middle Card Tender: [facility] [place] [employer] Comment: RMM, CT(ASCP) CT screening location: [address] ??[phone] PATHOLOGIST: [facility] [employer] [place] [employer] Comment: Halima Gonzalez M.D. , Board Certified in Anatomic and Clinical Pathology, Cytopathology and Immunopathology (electronic signature) (Always Message) [employer]PI ([employer] Comment: EXPLANATORY NOTE: The Pap is a [...] HPV nRNA E6/E7 Not Detected Not Detected [facility] [employer] Comment: Methodology: Pigment Pusher-Mediated Amplification This assay detects E6/E7 viral messenger RNA (mRNA) from 14 high-risk HPV types (16,18,31,33,35,39,45,51,52,56,58,59,66,68). Cervical sources are required for HPV testing. If a vaginal source from a patient who has had a total hysterectomy with removal of cervix was submitted, please contact the testing laboratory for alternative testing options. For additional information, please refer to http://education.[employer]/faq/GOI705i0 (This link if provided for information/ educational purposes only.) Chlamydia trachomatis RNA, TMA, Urogenital NOT DETECTED NOT DETECTED [facility] [employer] Neisseria gonorrhoeae RNA, TMA, Urogenital NOT DETECTED NOT DETECTED [facility] [place] [employer] (Always Message) [employer] [place] [employer] Comment: The analytical performance characteristics of this assay, when used to test SurePath(TM) specimens have been determined by [facility]. The modifications have not been cleared or approved by the FDA. This assay has been validated pursuant to the CLIA regulations and is used for clinical purposes. For additional information, please refer to https://[employer]/faq/HWN675 (This link is being provided for information/ educational purposes only.) Trichomonas vaginalis, QL, TMA, PAP Vial NOT DETECTED NOT DETECTED [facility] [place] [employer] Comment: The analytical performance characteristics of this assay have been determined by [facility]. The modifications have not been cleared or approved by the FDA. This assay has been validated pursuant to the CLIA regulations and is used for clinical purposes. For additional information, please refer to http://[employer]/ faq/Trichomonastma (This link is being provided for information/ educational purposes only.) Pap Vial 09/05/2022 10:1 3 AM EDT 09/06/2022 5:38 AM EDT Trinity Lemus [facility] CYTOLOGY ORDERABLES F inal Result [facility] [address], [place] [address] [facility] [employer] [place] [employer] [address] [place] [address] from Last 3 Months or Most Recently Relevant to Health Maintenance Insurance [facility] STAND ADULT Care Teams Canine Deputy Relationship Specialty Start Date End Date Vick Boyd ANP [address] [place] [phone] PCP - General Family Medicine 05/26/20
--- OUTSIDE RECORDS SUMMARY | 2024-09-23 11:42 | XMS_ITS | Clinical Summary ---
Author Organization [facility] Address [address] [place] [address] Phone Care Team Providers Care Winch Derrick Operator Name Role Phone Deirdre Chelsi Olivas NP Primary Care Provider [phone] Allergies Active Allergy Reactions Criticality Noted Date Comments Aspirin 03/30/2024 Medications Vitamin D3 25 mcg (1,000 unit) capsule Take 1 capsule (1,000 Units total) by mouth 1 (one) time each day. 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 11/07/2023 Lower back pain 11/07/2023 Bilateral knee pain 11/07/2023 Hemorrhoids 11/07/2023 Fibromyalgia 11/07/2023 Encounters Date Type Department Care Team Description 08/24/2024 9:45 AM EDT Office Visit Orthopedic [address] [phone] Malcom Lin DPM Fibromyalgia (Primary Dx); Neuritis 07/14/2024 1:45 PM EST Office Visit [facility] [address] [place] [phone] Malcom Lin DPM Fibromyalgia (Primary Dx); Pain [...] Care Team (Late st Contact Info) Description 10/26/2024 3:45 PM EDT Appointment [facility] Neurodiagnostic [address] [place] [phone] 11/02/2024 9:00 AM EDT Office Visit [facility] [place] [address] [phone] Malcom Lin, DPM [address] [phone] Health Maintenance Due Date Last Done Comments Hepatitis B Vaccines (1 of 3 - 19+ 3-dose series) 2008 Depression Screening 01/07/2024 10/01/2022 Social Influencers of Health Screening 01/07/2024 COVID-19 Vaccine ( - 2023-2 5 season) 2024 01/03/2021, 12/13/2020 Influenza Vaccine (Season Ended) 2025 Cervical Cancer Screening: P ap Smear 07/28/2026 [...] navicular joint to calcaneal cuboid joint ?? Malcom Lin DPM IMG XR PROCEDURES Final R esult from Last 3 Months Insurance MEDICAID - [place] Care Teams Winch Derrick Operator Relationship Specialty Start Date End Date Chelsi Gilmore NP [address] [place] [address], [place] [phone] PCP - General 09/02/23
--- OUTSIDE RECORDS SUMMARY | 2024-09-23 11:42 | XMS_ITS | Encounter Summary ---
Author Organization [employer] Address [address] [facility] [address] [place] [address] Care Team Providers Care Content Designer Name Role Phone Chelsi Gilmore PACO Primary Care Provider [phone] Reason for Visit * Reason Onset Date Comments mail referral scanned on 08/1309/09/2024 Encounter Details Date Type Department Care Team (Late st Contact Info) Description 09/09/2024 Telephone [facility] [address] [place], [place] [phone] Donald Cantu DDS [address] [place], [place] [phone] mail referral scanned on 08/13 Social History Tobacco Use Types Packs/Day Years [...] encounter Miscellaneous Notes * Telephone Encounter - Samina López - 09/09/2024 11:12 AM EDT Patient is asking for referral scanned in on 08/13 to be mailed to her address as she is looking for an office other than the one that she is referred to and does not have the original copy DR documented in this encounter Plan of Treatment Upcoming Encounters Date Type Department Care Team (Late st Contact Info) Description 09/28/2024 9:00 AM EDT Office Visit [facility] [address] [place] [address] Donald Cantu DDS [address] [place] [address] 03/14/2025 1:00 PM EST Office Visit [facility] [address] [place] [address] Maxime, Janiya [address] [place] [phone] documented as of this encounter Visit Diagnoses Not on filedocumented in this encounter Additional Health Concerns Assessment Noted Time PHQ-9 Depression Total Score: 4 10/02/19 23 2:23 PM EDT documented as of this encounter Care Teams Content Designer Relationship Specialty Start Date End Date Chelsi Gilmore ANP [address] [place] [address] PCP - General Family Medicine 05/26/20 documented as of this encounter
== END 2024-09-23 10:55 | disposition home or self-care (01) ==
PROVIDERS: PCP Nurse Practitioner Primary Care; Visit Provider Anesthesiology
DX: M19.90 Unspecified osteoarthritis, unspecified site (principal); M25.561 Pain in right knee; M25.562 Pain in left knee; G89.29 Other chronic pain; M17.11 Unilateral primary osteoarthritis, right knee; M54.50 Low back pain, unspecified; M25.571 Pain in right ankle and joints of right foot; M79.673 Pain in unspecified foot
CPT/HCPCS: 99203

== ENCOUNTER → 2024-09-23 10:32 | Outpatient (BNVA) | payer MEDICAID, SELFPAY | PROVIDERS: PCP Nurse Practitioner Primary Care; Visit Provider Anesthesiology | DX: M19.90 Unspecified osteoarthritis, unspecified site (principal); M25.561 Pain in right knee; M25.562 Pain in left knee; M17.11 Unilateral primary osteoarthritis, right knee; M54.50 Low back pain, unspecified; M25.571 Pain in right ankle and joints of right foot; M79.673 Pain in unspecified foot; G89.29 Other chronic pain | CPT/HCPCS: 99202 ==

== ENCOUNTER 2024-11-16 06:10 | Outpatient (REF) | payer MEDICAID, SELFPAY ==
--- OUTSIDE RECORDS SUMMARY | 2024-11-16 06:13 | XMS_ITS | Clinical Summary ---
Author Organization [employer] Address [address] [facility] 7t [place] [address] Care Team Providers Care International Relations Professor Name Role Phone Vick Boyd PACO Primary Care Provider [phone] Allergies Active Allergy Reactions Criticality Noted Date Comments Aspirin 01/04/2014 Other reaction(s): Trouble Breathing,Rash,Itchy Eye Medications cholecalciferol (Vitamin D-3) 25 MCG (1000 UT) capsuleIndicati ons:Vitamin D deficiency Take 1 capsule (25 mcg) by mouth Once per day. 90 capsule 08/04/2024 11/03/19 25 Active Problems Problem Noted Date Diagnosed Date [...] Encounters Date Type Department Care Team Description 09/28/2024 9:00 AM EDT Office Visit [facility]ULT [facility] [address] [place] [address] Donald Cantu DDS Dental caries (Primary Dx) 09/23/2024 Telephone [facility] MEDICINE [address] [place] [address] Vick Boyd ANP 09/22/2024 Telephone [facility] [address] [place] [address] Bianca Clement MA CHART PREP 09/09/2024 Telephone [facility] AD[facility] [address] [place] [address] Donald Cantu DDS mail referral scanned on 08/1308/31/2024 3:00 PM EDT Office Visit [facility] [address] [place] [address] Janiya Swartz Dental plaque (Primary Dx) from Last 3 Months Immunizations Immunization Administration [...] Reading Time Taken Comments Blood Pressure 126/74 09/28/2024 9:07 AM EDT Pulse 66 09/28/2024 9:07 AM EDT Temperature 36.6 C (97.9 F) 06/25/2024 1:13 PM EST Respiratory Rate 12 06/25/2024 1:13 PM EST Oxygen Saturation 99% 06/25/2024 1:13 PM EST Inhaled Oxygen Concentration - - Weight 96.5 kg (212 lb 12.8 oz) 06/25/2024 1:13 PM EST Height 165.1 cm (5' 5 ) 02/27/2024 1:36 PM EDT Body Mass Index 35.41 02/27/2024 1:36 PM EDT Plan of Treatment Upcoming Encounters Date Type Department Care Team (Late st Contact Info) Description 12/20/2024 3:30 PM EDT Office Visit [facility] MED[facility] [address] [place] [address] Vick Boyd ANP [address] [place] [address] 03/14/2025 1:00 PM EST Office Visit [facility] ADULT [facility] [address] [place] [address] Janiya Swartz [address] [place] [address] Health Maintenance Due Date Last Done Comments Disability Screening 1990 Family Planning (PISQ) 2004 Hepatitis B Vaccines (1 of 3 - 19+ 3-dose series) 2008 Cervical Cancer Screening 09/06/2023 HPV/Cotest 09/06/2023 09/05/2022, 05/13, 10/01/2021, Additional history exists Depression Screening 10/02/2023 10/01/2022, 10/02/19 COVID-19 Vaccine ( season) 2024 01/03/2021, 12/13/2020 Pap Smear 07/28/2024 07/29/2023, 08/11, 06/05/2022, Additional history exists Influenza Vaccine (#1) 2025 Dental Oral Exam 02/13/2025 08/13/2024, 07/2023, 05/22/2020, Additional history exists Dental Prophylaxis 03/03/2025 08/31/2024, 0 01/13/2024, 03/26/2022, Additional history exists SDOH Screening 06/11/2025 06/11/2024 Alcohol/Substance Use Screening 06/25/2025 06/25/2024 Dental X-Ray: Bitewings 08/14/2025 08/14/19, 01/13/2024, 04/10/2021, Additional history exists Tobacco Screening 09/28/2025 09/28/2024 Dental X-Ray: Full Mouth 01/13/2027 024, 05/22/2020, 08/13/2018 DTaP/Tdap/Td Vaccines (4 - Td or Tdap) 10/30/2028 10/30/2018, 12/25/2017, 01/13/2015 Lipid Panel 02/26/2029 02/27/2024, 02/05/2020, 03/10/2020 Zoster Vaccines (1 of 2) 09/20/2039 [...] Years) and At-Risk Patients (6 to 49) Years Aged Out No longer eligible based on patient's age to complete this topic RSV under 20 months Aged Out No longe r eligible based on patient's age to complete this topic Rotavirus Vaccines Aged Out No longer eligible based on patient's age to complete this topic Procedures Procedure Name Priority Date/Time Associated Diagnosis Comments CASE PRESENTATION, DETAILED AND EXTENSIVE TREATMENT PLANNING Routine 09/28/2024 9:00 AM EDT 17 O RESIN-BASED COMPOSITE - 1 SURF, POSTERIOR Routine 09/28/2024 9:00 AM EDT ORAL HYGIENE INSTRUCTIONS Routine 08/31/2024 3:00 PM EDT Dental plaque CASE PRESENTATION, DETAILED AND EXTENSIVE TREATMENT PLANNING Routine 08/31/2024 3:00 PM EDT Dental plaque PROPHYLAXIS - ADULT Routine 08/31/2024 3 :00 PM EDT Dental plaque BITEWINGS - 4 RADIOGRAPHIC IMAGES Routine 08/13/2024 10:30 AM EDT PERIODIC ORAL EVALUATION - ESTABLISHED PATIENT Routine 08/13/2024 10:30 AM EDT HEPATITIS C AB W/REFL TO [...] Recently Relevant to Health Maintenance Results * Hepatitis C Antibody with Reflex to HCV, RNA, Quantitative, Real-Time PCR (06/25/2024 2:09 PM EST) Hepatitis C Antibody Nonreactive Nonreactive [facility] Comment:Antibodies to HCV no t detected; does not exclude early acuteHCV infection. Blood Venous blood specimen / Unknown 06/25/2024 2:09 PM EST 06/25/2024 4:09 PM EST [facility] LAB BLOOD ORDERABLES Final Resul t [facility] [address] [place] [phone] * HIV-1/2 Antigen and Antibodies, Fourth Generation, with Reflexes (06/25/2024 2:09 PM EST) HIV AB/AG Nonreactive Nonreactive [facility] Comment:HIV-1 p24 Ag and/or HIV-1/HIV-2 Ab not detected.A test result that is nonreactive does not exclude thepossibility of exposure to or infection with HIV-1 and/orHIV-2. Nonreactive results in this assay for individualswith prior exposure to HIV-1 and/or HIV-2 may be due toantigen and antibody levels that are below the limit ofdetection of this assay.The Stephens Alinity HIV Ag/Ab Combo assay result andsupplemental assay results should be interpreted inconjunction with the patient's clinical presentation,history and other laboratory results. If the results areinconsistent with clinical evidence, additional testing issuggested to confirm the result. Blood Venous blood specimen / Unknown 06/25/2024 2:09 PM EST 06/25/2024 4:09 PM EST Vick Boyd ANP LAB BLOOD ORDERABLES Final Resul t Performing Organization Address [facility] de Phone Number [facility] [address] [place] [phone] * (ABNORMAL) Lipid Panel, Standard (02/27/2024 2:35 PM EDT) Triglycerides 93 <150 mg/dL [facility] Comment:Desirable Triglyceri de: less than 150 mg/dLBorderline High Triglyceride 150-199 mg/dLHigh Triglyceride: 200-499 mg/dLVery High Triglyceride: greater than or equal to 5OO mg/dL Cholesterol 165 <200 mg/dL [facility] Comment:Desirable Cholestero l: less than 200 mg/dLBorderline High Cholesterol: 200-239 mg/dLHigh Cholesterol: greater than 239 mg/dL LDL Cholesterol Calculated 105(H) <100 mg/dL [facility] Comment:Desirable LDL: less than 100 mg/dLNear Optimal/Above Optimal LDL: 110- 129 mg/dLBorderline High LDL: 130-159 mg/dLHigh LDL: 160-189 mg/dLVery High LDL: greater than or equal to 190 mg/dL HDL Cholesterol 42 >40 mg/dL [facility] Comment:Desirable HDL: great er than 40 mg/dL Note: This HDL assay may give artificially low results in patients with liver disease. Blood Venous blood specimen / Unknown 02/27/2024 2:35 PM EDT 02/27/2024 4:21 PM EDT us Vick Boyd ANP LAB BLOOD ORDERABLES Final Resul t Performing Organization Address [facility] Co de Phone Number [facility] [address] [place] [phone] * Pap Smear (07/29/2023 12:00 AM EDT) 07/29/2023 07/31/2023 1:0 0 PM EDT John [facility] - 08/11/2023 1:16 PM EDT ----- ------- Name: Sandrine Resendiz Age/Sex: 32/F : 1990 Unit#: [id number] Attend Dr: Roya Dodd CNM Re07/29/23 Status: DEP REF Location: HO.LNP Disch: ----- ------- SPEC : [id number] RECD: 07/31/23-1299 STATUS: OSVALDO PETERSON NUM: [id number] KINSEY: 07/29/23-[address]: Roya Dodd CNM ENTERED: 07/31/23-1413 SP TYPE: Pap Smr ELIUD DR: VICK BOYD NP ORDERED: Pap Smear Interpretation Satisfactory for evaluation. Moderate inflammation. Negative for intraepithelial lesion or malignancy. HPV mRNA E6/E7: NOT DETECTED This assay detects E6/E7 viral messenger RNA (mRNA) from 14 high-risk HPV types (16, 18, 31, 33, 35, 39, 45, 51, 52, 56, 58, 59, 66, 68) HPV testing performed by [facility], [place], [place]. See reference laboratory portion of the EMR for entire report. Clinical Information LMP: 07/14/23 Previous PAP test: 06/05/22, Abnormal Material Received ThinPrep-Cervical Copies To: Roya Dodd [address] [place] [address] VICK BOYD NP [address] [facility] [address] [place] [address] ----- ------- Signed (signature on file) BABATUNDE Bartholomew (ASCP) 08/11/23 1316 ----- ------- END OF REPORT us Generic External Data Provider LAB CYTOLOGY KELSEY WALLACE Final Result [facility] [address] [place] [phone] * (ABNORMAL) Image-Guided Pap with Age-Based Screening??with CT/NG,??Trichomonas (09/05/2022 10:13 AMEDT) Comment [facility] Comment: This order for age-based cervical cancer and STI screening follows ACOG guidelines(PB 168, 140, UIQ676). See individual assays for performing site location. Clinical Information: ASCUS HPV NEG 2021 [facility] LMP: NONE GIVEN [facility] Prev. PAP: YES [facility] [place] [facility] Prev. BX: NONE GIVEN [facility] [place] [facility] SOURCE: None given [facility] [place] [facility] Statement Of Adequacy: [facility] Comment: Satisfactory for evaluation. Endocervical/transformation zone component present. General Categorization: EPITHELIAL CELL ABNORMALITY(A) [facility] Interpretation/Re sult: Atypical Squamous Cells of Undetermined Significance (ASC-US)(A) [facility] COMMENT: This Pap test has been evaluated with computer assisted technology. [facility] Timber Treating Tank Operator: [employer] [facility] Comment: YP, CT(ASCP) CT screening location: [place] [address] Review Timber Treating Tank Operator: [facility] Comment: RMM, CT(ASCP) CT screening location: [place] [address] PATHOLOGIST: [facility] Comment: Halima Gonzalez M.D. , Board Certified in Anatomic and Clinical Pathology, Cytopathology and Immunopathology (electronic signature) (Always Message) [employer] Comment: EXPLANATORY NOTE: The Pap is a [...] HPV nRNA E6/E7 Not Detected Not Detected [facility] Comment: Methodology: Die Sizer-Mediated Amplification This assay detects E6/E7 viral messenger RNA (mRNA) from 14 high-risk HPV types (16,18,31,33,35,39,45,51,52,56,58,59,66,68). Cervical sources are required for HPV testing. If a vaginal source from a patient who has had a total hysterectomy with removal of cervix was submitted, please contact the testing laboratory for alternative testing options. For additional information, please refer to http://education.Kanna[employer] Sciences.com/faq/WKE322p1 (This link if provided for information/ educational purposes only.) Chlamydia trachomatis RNA, TMA, Urogenital NOT DETECTED NOT DETECTED [facility] Neisseria gonorrhoeae RNA, TMA, Urogenital NOT DETECTED NOT DETECTED [facility] (Always Message) [facility] [place] [facility] Comment: The analytical performance characteristics of this assay, when used to test SurePath(TM) specimens have been determined by [facility]. The modifications have not been cleared or approved by the FDA. This assay has been validated pursuant to the CLIA regulations and is used for clinical purposes. For additional information, please refer to https://Birdland [employer].Jampp/faq/DHG289 (This link is being provided for information/ educational purposes only.) Trichomonas vaginalis, QL, TMA, PAP Vial NOT DETECTED NOT DETECTED [employer] Comment: The analytical performance characteristics of this assay have been determined by [facility]. The modifications have not been cleared or approved by the FDA. This assay has been validated pursuant to the CLIA regulations and is used for clinical purposes. For additional information, please refer to http://[employer].Jampp/ faq/Trichomonastma (This link is being provided for information/ educational purposes only.) Pap Vial 09/05/2022 10:1 3 AM EDT 09/06/2022 5:38 AM EDT [facility] LAB CYTOLOGY ORDERABLES F inal Result [facility] [address], [place] [address] [facility] [address] [place] [phone] from Last 3 Months or Most Recently Relevant to Health Maintenance [place] [address] [place] [address] [place] STAND ADULT Care Teams International Relations Professor Relationship Specialty Start Date End Date Vick Boyd ANP [address] [place] [address] PCP - General Family Medicine 05/26/20
--- OUTSIDE RECORDS SUMMARY | 2024-11-16 06:13 | XMS_ITS | Clinical Summary ---
Author Organization [address] [facility] Address [address] [place] [address] Phone Care Team Providers Care Field Hand Name Role Phone Chelsi Gilmore NP Primary Care Provider [phone] Allergies Active Allergy Reactions Criticality Noted Date [...] Encounters Date Type Department Care Team Description 11/02/2024 9:00 AM EDT Office Visit [facility] [address] [phone] Malcom Lin DPM Neuritis (Primary Dx); Fibromyalgia 10/26/2024 3:45 PM EDT - 10/26/2024 11:59 PM EDT Hospital Encounter [facility] Neurodiagnostic [address] [place] [phone] Fibromyalgia; Neuritis Discharge Disposition: Home or Self Care 08/24/2024 9:45 AM EDT Office Visit [facility] [address] [phone] Malcom Lin DPM Fibromyalgia (Primary Dx); Neuritis from Last 3 Months Social History [...] 07/14/2024 1:45 PM EST Plan of Treatment Health Maintenance Due Date [...] 5 Years) and At-Risk Patients (6 to 49 Years) Aged Out No longer eligible b ased on patient's age to complete this topic RSV Immunization Patients Under 20 months Aged Out No longer eligible b ased on patient's age to complete this topic Varicella Vaccines Aged Out No longer eligible based on patient's age to complete this topic Procedures Procedure Name Priority Date/Time Associated Diagnosis Comments EMG 2 LIMBS Routine 10/26/2024 4:10 PM EDT Fibromyalgia Neuritis from Last 3 Months Results * EMG two limbs (10/26/2024 4:10 PM EDT) Narrative Ekaterina Aceves MD - 10/26/2024 4:25 PM EDT Images from the original result were not included. [facility] [address] [place] [phone] Electromyograph Report Date of service: 10/26/24 Patient Name: Sydnie Momin Date of : 1990 Age: 34 y.o. Gender: female Procedure Order: EMG two limbs Ordering Provider: Malcom Lin DPM Reason for Exam: There are no answered order specific questions. Diagnosis listed on Order: Neuritis, Fibromyalgia Please see scanned report for testing details and results. Procedure Note Ekaterina Aceves MD - 10/26/2024 Images from the original note were not included. [facility] [address] [place] [address] Electromyograph Report Date of service: 10/26/24 Patient Name: Sydnie Momin Date of : 1990 Age: 34 y.o. Gender: female Procedure Order: EMG two limbs Ordering Provider: Malcom Lin DPM Reason for Exam: There are no answered order specific questions. Diagnosis listed on Order: Neuritis, Fibromyalgia Please see scanned report for testing details and results. EDT us Christopher M Lin DPM NEUROLOGY ORDERABLES Michelle l Result from Last 3 Months Insurance MEDICAID - [place] [employer] MED[place] Care Teams Field Hand Relationship Specialty Start Date End Date Chelsi Gilmore NP [address] [place] [phone] PCP - General 09/02/23
== END 2024-11-16 06:11 | disposition home or self-care (01) ==
LOC: CF 06:10
PROVIDERS: Visit Provider Anesthesiology
DX: Z13.89 Encounter for screening for other disorder (principal)
CPT/HCPCS: J2795; J3301

== ENCOUNTER 2024-12-20 16:19 | Outpatient (REF) | payer MEDICAID, SELFPAY ==
--- OUTSIDE RECORDS SUMMARY | 2024-12-20 15:30 | XMS_ITS | Encounter Summary ---
Author Organization [facility] Address [address] [facility] [address] [place] [address] Care Team Providers Care Drink Waiter Name Role Phone Chelsi Gilmore Primary Care Provider [phone] Reason for Referral * Imaging (Routine) - Pending Review Specialty Diagnoses / Procedures Referred By Contac t Referred To Contact Radiology Diagnoses Dysphagia, unspecified type Procedures FL BARIUM SWALLOW MODIFIED Chelsi Gilmore ANP [address] [place] [address] Phone: tel: fax: [address] Phone: tel: fax: Referral ID Status Reason Start Date Expiration Date Visits Requested Visits Authorized [id number] Pending Review Perform Procedure 12/20/2024 12/20/2025 1 1 Reason for Visit * Reason Comments Weight Check Encounter Details Date Type Department Care Team (Late st Contact Info) Description 12/20/2024 3:30 PM EDT Office Visit [facility] MEDICINE [address] [place] [address] Chelsi Gilmore ANP [address] [place] [address] Jaw pain (Primary Dx); Class 2 obesity with body mass index (BMI) of 35.0 to 35.9 in adult, unspecified obesity type, unspecified whether serious comorbidity present; Gastroesophageal reflux disease, unspecified whether esophagitis present; Dysphagia, unspecified type; Routine screening for STI (sexually transmitted infection) Social History Tobacco Use Types Packs/Day Years Used Date Smoking Tobacco: Former Passive Smoke Exposure: Never Smokeless Tobacco: Never Alcohol Use Standard Drinks/Week Comments Never 0 (1 standard drink = 0.6 oz pur e alcohol) Depression Answer Date Recorded Patient Health Questionnaire-9 Score 5 12/20/2024 Patient Health Questionnaire-9 Score 5 12/20/2024 Last PHQ-9: Questionnaire Data Not on file 0 12/20/2024 Housing Stability Answer Date Recorded What is [...] Answer Date Recorded Patient Health Questionnaire-2 Score 2 12/20/2024 Internet Access Answer Date Recorded Internet Access [...] Sign Reading Time Taken Comments Blood Pressure 102/60 12/20/2024 3:43 PM EDT Pulse 60 12/20/2024 3:43 PM EDT Temperature - - Respiratory Rate 16 12/20/2024 3:43 PM EDT Oxygen Saturation - - Inhaled Oxygen Concentration - - Weight 98 kg (216 lb) 12/20/2024 3:43 PM EDT Height 165.1 cm (5' 5 ) 12/20/2024 3:43 PM EDT Body Mass Index 35.94 12/20/2024 3:43 PM EDT documented in this encounter Functional Status * Over the past 2 weeks, how often have you been bothered by any of the following problems? Question Answer Date of Assessment Author Patient Health Questionnaire -2 Score 2 12/20/2024 4:16 PM EDT Bianca Clement MA * Little interest or pleasure in doing things Answer Date of Assessment Author Several days 12/20/2024 4:16 PM EDT Bianca Clement MA * Feeling down, depressed, or hopeless Answer Date of Assessment Author Several days 12/20/2024 4:16 PM EDT Bianca Clement MA * Trouble falling or staying asleep, or sleeping too much Answer Date of Assessment Author Not at all 12/20/2024 4:16 PM EDT Bianca Clement MA * Feeling tired or having little energy Answer Date of Assessment Author Several days 12/20/2024 4:16 PM EDT Bianca Clement MA * Poor appetite or overeating Answer Date of Assessment Author Several days 12/20/2024 4:16 PM EDT Bianca Clement MA * Feeling bad about yourself - or that you are a failure or have let yourself or your family down Answer Date of Assessment Author Not at all 12/20/2024 4:16 PM EDT Bianca Clement MA * Trouble concentrating on things, such as reading the newspaper or watching television Answer Date of Assessment Author Several days 12/20/2024 4:16 PM EDT Bianca Clement MA * Moving or speaking so slowly that other people could have noticed? Or the opposite - being so fidgety or restless that you have been moving around a lot more than usual. Answer Date of Assessment Author Not at all 12/20/2024 4:16 PM EDT Bianca Clement MA * Thoughts that you would be better off or hurting yourself in some way Answer Date of Assessment Author Not at all 12/20/2024 4:16 PM EDT Bianca Clement MA * Patient Health Questionnaire-9 Score Answer Date of Assessment Author 5 12/20/2024 4:16 PM EDT Bianca Clement MA * How difficult have these problems made it for you to do your work, take care of things at home, or get along with other people? Answer Date of Assessment Author Not difficult at all 12/20/2024 4:16 PM EDT Bianca Victor MA * Over the last 2 weeks, how often have you been bothered by any of the following problems? Question Answer Date of Assessment Author Feeling nervous, anxious, or on edge 1 12/20/2024 4:17 PM EDT Bianca Clement MA Not being able to stop or co ntrol worrying 1 12/20/2024 4:17 PM EDT Bianca Clement MA Worrying too much about diff erent things 1 12/20/2024 4:17 PM EDT Bianca Clement MA Trouble relaxing 1 12/20/2024 4:17 PM EDT Bianca Alves MA Being so restless that it is hard to sit still 0 12/20/2024 4:17 PM EDT Bianca Clement MA Becoming easily annoyed or irritable 0 12/20/2024 4:17 PM EDT Bianca Clement MA Feeling afraid as if somethi ng awful might happen 0 12/20/2024 4:17 PM EDT Bianca Clement MA DEBBIE-7 Total Score 4 12/20/2024 4:17 PM EDT Bianca Clement MA documented as of this encounter Plan of Treatment Upcoming Encounters Date Type Department Care Team (Late st Contact Info) Description 03/14/2025 1:00 PM EST Office Visit [facility] ADULT DENTAL [address] [place] [address] Maxime Janiya [address] [place] [address] Scheduled Orders Name Type Priority Associated Diagnoses Orde r Schedule FL BARIUM SWALLOW MODIFIED Imaging Routine Dysphagia, unspecified type Expected: 12/20/2024, Expires: 12/20/2025 HIV-1/2 Antigen and Antibodies, Fourth Generation, with Reflexes Lab Routine Routine screening for STI (sexually transmitted infection) Expected: 12/20/2024 (Approximate), Expires: 12/20/2025 Hepatitis C Antibody with Reflex to HCV, RNA, Quantitative, Real-Time PCR Lab Routine Routine screening for STI (sexually transmitted infection) Expected: 12/20/2024 (Approximate), Expires: 12/20/2025 Lipid Panel, Standard Lab Routine Class 2 obesity with body mass index (BMI) of 35.0 to 35.9 in adult, unspecified obesity type, unspecified whether serious comorbidity present Expected: 12/20/2024 (Approximate), Expires: 12/20/2025 Hemoglobin A1c Lab Routine Class 2 obesity with body mass index (BMI) of 35.0 to 35.9 in adult, unspecified obesity type, unspecified whether serious comorbidity present Expected: 12/20/2024 (Approximate), Expires: 12/20/2025 Syphilis Screen Lab Routine Routine screening for STI (sexually transmitted infection) Expected: 12/20/2024 (Approximate), Expires: 12/20/2025 Chlamydia/N. Gonorrhoeae, PCR, Urine Lab Routine Routine screening for STI (sexually transmitted infection) Expected: 12/20/2024 (Approximate), Expires: 12/20/2025 documented as of this encounter Visit Diagnoses Diagnosis Jaw pain- Primary Class 2 obesity with body mass index (BMI) of 35.0 to 35.9 in adult, unspecified obesity type, unspecified whether serious comorbidity present Gastroesophageal reflux disease, unspecified whether esophagitis present Dysphagia, unspecified type Routine screening for STI (sexually transmitted infection) Screening examination for venereal disease documented in this encounter Additional Health Concerns Assessment Noted Time PHQ-9 Depression Total Score: 5 12/21/19 25 4:16 PM EDT documented as of this encounter Care Teams Drink Waiter Relationship Specialty Start Date End Date Chelsi Gilmore ANP [address] [place] [phone] PCP - General Family Medicine 05/26/20 documented as of this encounter
--- OUTSIDE RECORDS SUMMARY | 2024-12-20 16:23 | XMS_ITS | Clinical Summary ---
Author Organization [address] [facility] Address [address] [place] [address] Phone Care Team Providers Care Operating Systems Specialist Name Role Phone Deirdre Chelsi Olivas NP Primary Care Provider [phone] Allergies Active Allergy Reactions Criticality Noted Date [...] Description 11/02/2024 9:00 AM EDT Office Visit Orthopedic Surgery [facility] [address] [phone] Malcom Lin, DPM Neuritis (Primary Dx); Fibromyalgia 10/26/2024 3:45 PM EDT - 10/26/2024 11:59 PM EDT Hospital Encounter [facility] [address] [place] [phone] Fibromyalgia; Neuritis Discharge Disposition: Home or Self Care from Last 3 Months Social History Tobacco [...] of 3 - 19+ 3-dose series) 2008 Social Influencers of Health Screening 01/07/2024 COVID-19 Vaccine ( - 2023-2 5 season) 2024 01/03/2021, 12/13/2020 Depression Screening 05/12/2024 Influenza Vaccine (#1) 2025 Cervical Cancer Screening: P ap Smear [...] original result were not included. [facility] [address] [place] [address] Electromyograph Report Date of service: 10/26/24 Patient [...] note were not included. [facility] [address] [place] [address] Electromyograph Report Date of service: 10/26/24 Patient Name: Sydnie Momin Date of : 1990 Age: 34 y.o. Gender: female Procedure Order: EMG two limbs Ordering Provider: Malcom Lin DPM Reason for Exam: There are no answered order specific questions. Diagnosis listed on Order: Neuritis, Fibromyalgia Please see scanned report for testing details and results. EDT us Malcom Lin DPM NEUROLOGY ORDERABLES Michelle l Result from Last 3 Months Insurance MEDICAID - [place] [employer] MED[place] Care Teams Operating Systems Specialist Relationship Specialty Start Date End Date Chelsi Gilmore NP [address] [place] [phone] PCP - General 09/02/23
[2024-12-20 17:54] LABS: Hemoglobin A1C 122.8365 umol/L; Total Hemoglobin (HGBA1C) 3445.6109 umol/L
[2024-12-20 18:24] LABS: Cholesterol 148 mg/dL (<200); HDL Cholesterol 38 mg/dL (>40); Triglycerides 71 mg/dL (<150)
[2024-12-21 08:59] LABS: HIV Num 1 0.06 S/CO (0.00-0.99); ~HepC Num1 0.12 S/CO (0.00-0.79); ~Hepatitis C Antibody Nonreactive (Nonreactive)
[2024-12-21 09:16] LABS: Syphilis Screen Nonreactive (Nonreactive)
[2024-12-21 10:39] LABS: CT PCR Urine NOT DETECTED (Not Detect.); NG PCR Urine NOT DETECTED (Not Detect.)
== END 2024-12-20 16:20 | disposition home or self-care (01) ==
LOC: HO.HHCL 16:19
PROVIDERS: PCP Nurse Practitioner Primary Care; Visit Provider Nurse Practitioner Primary Care
DX: Z11.3 Encounter for screening for infections with a predominantly sexual mode of transmission (principal); Z11.4 Encounter for screening for human immunodeficiency virus [HIV]; E66.812 Obesity, class 2; Z68.35 Body mass index [BMI] 35.0-35.9, adult
CPT/HCPCS: 80061; 83036; 86780; 86803; 87389; 87491; 87591

== ENCOUNTER 2025-01-07 09:09 | Outpatient (RCR) | payer MEDICAID, SELFPAY | END 2025-02-07 16:20 | disposition home or self-care (01) | LOC: HO.PT 09:09 | PROVIDERS: PCP Nurse Practitioner Primary Care; Visit Provider Urology | DX: N39.41 Urge incontinence (principal) | CPT/HCPCS: 97110; 97112; 97140; 97162; 97164 ==

== ENCOUNTER 2025-02-15 13:50 | Outpatient (REF) | payer MEDICAID, SELFPAY ==
--- NOTE | ~2025-02-15 | FL_ITS ---
EXAMINATION: XR MODIFIED BARIUM SWALLOW CLINICAL INFORMATION: Difficulty swallowing COMPARISON: None available. TECHNIQUE: Modified barium swallow performed by the speech pathologist FINDINGS: Patient swallowed liquids and solids of varying consistency. No aspiration is seen. See speech pathology report for details. FLUOROSCOPY TIME: 51 seconds DOSE AREA PRODUCT: 350 uGy-m2 (microgray-meter squared) FL/FL Modified Barium Swallow IMPRESSION: Modified barium swallow. No aspiration seen.] See speech pathology report for details.. Electronically signed by: Enrico Guaman MD 02/15/2025 04:55 PM EDT RP
--- OUTSIDE RECORDS SUMMARY | 2025-02-15 17:02 | XMS_ITS | Encounter Summary ---
Author Organization [employer] Address [address] [facility] [address] [place] [address] Care Team Providers Care Terrazzo Polisher Name Role Phone Chelsi Gilmore PACO Primary Care Provider [phone] Reason for Visit * Reason Onset Date Comments mail referral scanned on 08/1309/09/2024 Encounter Details Date Type Department Care Team (Late st Contact Info) Description 09/09/2024 Telephone [facility] [address] [place], [place] [phone] Donald Cantu DDS [address], [place] [phone] mail referral scanned on 08/13 Social History [...] Team (Late st Contact Info) Description 03/14/2025 12:45 PM EST Office Visit [facility] [address] [place] [address] Maxime, Janiya [address] [place] [address] documented as of this encounter Visit Diagnoses Not on filedocumented in this encounter Additional Health Concerns Assessment Noted Time PHQ-9 Depression Total Score: 4 10/02/19 23 2:23 PM EDT documented as of this encounter Care Teams Terrazzo Polisher Relationship Specialty Start Date End Date Chelsi Gilmore ANP [address] [place] [address] PCP - General Family Medicine 05/26/20 documented as of this encounter
--- OUTSIDE RECORDS SUMMARY | 2025-02-15 17:02 | XMS_ITS | Clinical Summary ---
Author Organization [employer] Address [address] [facility] [address] [place] [address] Care Team Providers Care Communications Director Name Role Phone Vick Boyd PACO Primary Care Provider [phone] Allergies Active Allergy Reactions Criticality Noted Date Comments Aspirin 01/04/2014 Other reaction(s): Trouble Breathing,Rash,Itchy Eye Medications famotidine (Pepcid) 20 MG tabletIndication s:Gastroesophage al reflux disease, unspecified whether esophagitis present Take 1 tablet twice daily as needed for acid reflux 90 tablet 12/20/2024 Active Active Problems Problem Noted Date Diagnosed [...] Encounters Date Type Department Care Team Description 02/07/2025 Telephone [facility] [address] [place] [phone] Vick Boyd ANP 12/24/2024 Results Follow-Up [facility] [address] [place] [phone] Vick Boyd ANP HIV-1/2 Antigen and Antibodies, Fourth Generation, with Reflexes, Hepatitis C Antibody with Reflex to HCV, RNA, Quantitative, Real-Time PCR, Lipid Panel, Standard, Additional followed-up results: 3 12/20/2024 3:30 PM EDT Office Visit [facility] [address] [place] [phone] Vick Boyd ANP Jaw pain (Primary Dx); Class 2 obesity with body mass index (BMI) of 35.0 to 35.9 in adult, unspecified obesity type, unspecified whether serious comorbidity present; Gastroesophageal reflux disease, unspecified whether esophagitis present; Dysphagia, unspecified type; Routine screening for STI (sexually transmitted infection) 12/20/2024 Travel 12/17/2024 3:30 PM EDT Office Visit [facility] ADULT DENTAL [address] [place] [phone] Donald Cantu, BESSY Missing teeth, acquired (Primary Dx) 12/17/[address] [address] Vick Boyd ANP chart prep from Last 3 Months Immunizations Immunization Administration [...] Pulse 60 12/20/2024 3:43 PM EDT Temperature 36.6 C (97.9 F) 06/25/2024 1:13 PM EST Respiratory Rate 16 12/20/2024 3:43 PM EDT Oxygen Saturation 99% 06/25/2024 1:13 PM EST Inhaled Oxygen Concentration - - Weight 98 kg (216 lb) 12/20/2024 3:43 PM EDT Height 165.1 cm (5' 5 ) 12/20/2024 3:43 PM EDT Body Mass Index 35.94 12/20/2024 3:43 PM EDT Plan of Treatment Upcoming Encounters Date Type Department Care Team (Late st Contact Info) Description 03/14/2025 12:45 PM EST Office Visit [facility] ADULT DENTAL [address] [place] [address] Janiya Swartz [address] [place] [address] Health Maintenance Due Date Last Done Comments Family Planning (PISQ) 2004 HPV Vaccines (1 - 3-dose series) 2004 Hepatitis B Vaccines (1 of 3 - 19+ 3-dose series) 2008 COVID-19 Vaccine (2024- season) 2025 01/03/2021, 12/13/2020 Influenza Vaccine (#1) 2025 Dental Oral Exam 02/13/2025 08/13/2024, 07/2023, 05/22/2020, Additional history exists Dental Prophylaxis 03/03/2025 08/31/2024, 0 01/13/2024, 03/26/2022, Additional history exists SDOH Screening 06/11/2025 06/11/2024 Alcohol/Substance Use Screening 06/25/2025 06/25/2024 Dental X-Ray: Bitewings 08/14/2025 08/14/19 25, 01/13/2024, 04/10/2021, Additional history exists Depression Screening 12/20/2025 12/20/2024, 12/21/19 Disability Screening 12/20/2025 12/20/2024 Tobacco Screening 02/07/2026 02/07/2025 Cervical Cancer Screening 07/28/2026 HPV/Cotest 07/28/2026 09/05/2022, 05/13, 10/01/2021, Additional history exists Pap Smear 07/28/2026 07/29/2023, 08/11, 06/05/2022, Additional history exists Dental X-Ray: Full Mouth 01/13/2027 024, 05/22/2020, 08/13/2018 DTaP/Tdap/Td Vaccines (4 - Td or Tdap) 10/30/2028 10/30/2018, 12/25/2017, 01/13/2015 Lipid Panel 12/20/2029 12/20/2024, 02/09, 06/22/2020, Additional history exists Zoster Vaccines (1 of 2) 09/20/2039 RSV Patients and Patients Aged 60 years or older (1 - 1-dose 75+ series) 2064 HIV Screening Completed 12/20/2024, 06/12, 02/27/2024, Additional history exists Hepatitis C Screening Completed 12/20/2024 , 06/25/2024, 02/27/2024, Additional history exists HIB Vaccines Aged Out [...] Procedure Name Priority Date/Time Associated Diagnosis Comments FL BARIUM SWALLOW MODIFIED Routine 02/15/2025 2:20 PM EDT Dysphagia, unspecified type CHLAMYDIA/TRICHOMONAS /NEISSERIA GONORRHOEAE, PCR, URINE Routine 12/20/2024 4:25 PM EDT Routine screening for STI (sexually transmitted infection) SYPHILIS SCREEN Routine 12/20/2024 4:25 PM EDT Routine screening for STI (sexually transmitted infection) HEMOGLOBIN A1C Routine 12/20/2024 4:25 PM EDT Class 2 obesity with body mass index (BMI) of 35.0 to 35.9 in adult, unspecified obesity type, unspecified whether serious comorbidity present LIPID PANEL, STANDARD Routine 12/20/2024 4:25 PM EDT Class 2 obesity with body mass index (BMI) of 35.0 to 35.9 in adult, unspecified obesity type, unspecified whether serious comorbidity present HEPATITIS C AB W/REFL TO HCV RNA, QN, PCR Routine 12/20/2024 4:25 PM EDT Routine screening for STI (sexually transmitted infection) HIV 1/2 ANTIGEN/ANTIBODY, FOURTH GENERATION W/RFL Routine 12/20/2024 4:25 PM EDT Routine screening for STI (sexually transmitted infection) CASE PRESENTATION, DETAILED AND EXTENSIVE TREATMENT PLANNING Routine 12/17/2024 3:30 PM EDT LIMITED ORAL EVALUATION - PROBLEM FOCUSED Routine 12/17/2024 3:30 PM EDT PROPHYLAXIS - ADULT Routine 08/31/2024 3 :00 PM EDT Dental plaque BITEWINGS - 4 RADIOGRAPHIC IMAGES Routine 08/13/2024 10:30 AM EDT PERIODIC ORAL EVALUATION - ESTABLISHED PATIENT Routine 08/13/2024 10:30 AM EDT INTRAORAL - COMPLETE SERIES OF RADIOGRAPHIC IMAGES Routine 01/13/2024 1:00 PM EDT Dental plaque Missing teeth, acquired PAP SMEAR Routine 07/29/2023 12:00 AM EDT IMAGE-GUIDED PAP W/AGE BASED SCR,W/CT/NG/TRICH Routine 09/05/2022 10:13 AM EDT Atypical squamous cells of undetermined significance (ASCUS) on Papanicolaou smear of cervix from Last 3 Months or Most Recently Relevant to Health Maintenance Results * FL BARIUM SWALLOW MODIFIED (02/15/2025 2:20 PM EDT) Anatomical Region Laterality Modality Head, Neck Radiographic Belle ging 02/15/2025 2:20 PM EDT Narrative 02/15/2025 4:59 PM EDT [address] [address] Fluoroscopy Report Signed Patient: Sandrine Resendiz MR#: [id number] 58 : 1990 Acct:[id number] Age/Sex: 34 / F ADM Date: 02/15/25 Loc: ADDI Attending Dr: Vick Boyd SENIOR EDITOR Ordering Physician: VICK BOYD NP Date of Service: 02/15/25 Procedure(s): FL Modified Barium Swallow Accession Number(s): [id number] cc: VICK BOYD NP Reason for Exam: difficulty swallowing EXAMINATION: XR MODIFIED BARIUM SWALLOW CLINICAL INFORMATION: Difficulty swallowing COMPARISON: None available. TECHNIQUE: Modified barium swallow performed by the speech pathologist FINDINGS: Patient swallowed liquids and solids of varying consistency. No aspiration is seen. See speech pathology report for details. FLUOROSCOPY TIME: 51 seconds DOSE AREA PRODUCT: 350 uGy-m2 (microgray-meter squared) FL/FL Modified Barium Swallow IMPRESSION: Modified barium swallow. No aspiration seen.] See speech pathology report for details.. Electronically signed by: Enrico Guaman MD 02/15/2025 04:55 PM EDT Dictated By: Enrico Guaman MD Signed By: <Electronically signed by Enrico Guaman MD in OV> 02/15/25 1655 DD/ 1420 TD/TT: 02/15/25 1425 Ict Development Manager: Procedure Note Donotuseinterpreter, Image - 02/15/2025 [place] [address] Fluoroscopy Report Signed Patient: Yovanny Resendiz#: [id number] 58 : 1990Acct:[id number] Age/Sex: 34 / FADM Date: 02/15/25 Loc: ADDI Attending Dr: Vick Boyd SENIOR EDITOR Ordering Physician: VICK BOYD NP Date of Service: 02/15/25 Procedure(s): FL Modified Barium Swallow Accession Number(s): [id number] cc: VICK BOYD NP Reason for Exam: difficulty swallowing EXAMINATION: XR MODIFIED BARIUM SWALLOW CLINICAL INFORMATION: Difficulty swallowing COMPARISON: None available. TECHNIQUE: Modified barium swallow performed by the speech pathologist FINDINGS: Patient swallowed liquids and solids of varying consistency. No aspiration is seen. See speech pathology report for details. FLUOROSCOPY TIME: 51 seconds DOSE AREA PRODUCT: 350 uGy-m2 (microgray-meter squared) FL/FL Modified Barium Swallow IMPRESSION: Modified barium swallow. No aspiration seen.] See speech pathology report for details.. Electronically signed by: Enrico Guaman MD 02/15/2025 04:55 PM EDT RP Dictated By: Enrico Guaman MD Signed By: <Electronically signed by Enrico Guaman MD in OV> 02/15/25 1655 DD/ 1420 TD/TT: 02/15/25 1425 Ict Development Manager: MICHAEL [facility] IM FLUOROSCOPY PROCEDURES Final Result * Chlamydia/N. Gonorrhoeae, PCR, Urine (12/20/2024 4:25 PM EDT) CT PCR, Urine NOT DETECTED Not Detect. [facility] Comment:A not detected test result does not exclude the possibilityof infection because test results can be affected byimproper specimen collection, concurrent antibiotic therapy,or the number of organisms in the specimen which may bebelow the sensitivity of the test. As with many diagnostictests, results from the Xpert CT/NG assay should beinterpreted in conjunction with other laboratory andclinical data available to the clinician.The Xpert CT/NG assay should not be used for the evaluationof suspected sexual abuse or for other medico-legalindications. Additional testing is recommended in anycircumstance when false positive or false negative resultscould lead to adverse medical, social or psychologicalconsequences. NG PCR, Urine NOT DETECTED Not Detect. [facility] Comment:A not detected test result does not exclude the possibilityof infection because test results can be affected byimproper specimen collection, concurrent antibiotic therapy,or the number of organisms in the specimen which may bebelow the sensitivity of the test. As with many diagnostictests, results from the Xpert CT/NG assay should beinterpreted in conjunction with other laboratory andclinical data available to the clinician.The Xpert CT/NG assay should not be used for the evaluationof suspected sexual abuse or for other medico-legalindications. Additional testing is recommended in anycircumstance when false positive or false negative resultscould lead to adverse medical, social or psychologicalconsequences. Urine (Urine, Random) 12/20/2024 4:25 PM EDT 12/20/2024 5:27 PM EDT [facility] Boyd [facility] URINE ORDERABLES Final Resul t Performing Organization Address [facility] de Phone Number [facility] [address] [place] [phone] * Syphilis Screen (12/20/2024 4:25 PM EDT) Syphilis Screen Nonreactive Nonreactive [facility] Blood Venous blood specimen / Unknown 12/20/2024 4:25 PM EDT 12/20/2024 5:28 PM EDT [facility] Boyd [facility] BLOOD ORDERABLES Final Resul t Performing Organization Address [facility] de Phone Number [facility] [address] [place] [phone] * Hepatitis C Antibody with Reflex to HCV, RNA, Quantitative, Real-Time PCR (12/20/2024 4:25 PM EDT) Pathologist [facility] Hepatitis C Antibody Nonreactive Nonreactive [facility] Comment:Antibodies to HCV no t detected; does not exclude early acuteHCV infection. Blood Venous blood specimen / Unknown 12/20/2024 4:25 PM EDT 12/20/2024 5:28 PM EDT [facility] Boyd [facility] BLOOD ORDERABLES Final Resul t Performing Organization Address [facility] de Phone Number [facility] [address] [place] [phone] * HIV-1/2 Antigen and Antibodies, Fourth Generation, with Reflexes (12/20/2024 4:25 PM EDT) HIV AB/AG Nonreactive Nonreactive [facility] Comment:HIV-1 p24 Ag and/or HIV-1/HIV-2 Ab not detected.A test result that is nonreactive does not exclude thepossibility of exposure to or infection with HIV-1 and/orHIV-2. Nonreactive results in this assay for individualswith prior exposure to HIV-1 and/or HIV-2 may be due toantigen and antibody levels that are below the limit ofdetection of this assay.The [employer] HIV Ag/Ab Combo assay result andsupplemental assay results should be interpreted inconjunction with the patient's clinical presentation,history and other laboratory results. If the results areinconsistent with clinical evidence, additional testing issuggested to confirm the result. Blood Venous blood specimen / Unknown 12/20/2024 4:25 PM EDT 12/20/2024 5:28 PM EDT [facility] LAB BLOOD ORDERABLES Final Resul t [facility] [address] [place] [phone] * Hemoglobin A1c (12/20/2024 4:25 PM EDT) Pathologist [facility] Hemoglobin A1c 5.4 <6.0 % [facility] Comment:Hemoglobin A1C Refer ence Range Adults: 4.8 - 6.0 % Non diabetic: < 6.0 % Goal: < 7.0 %Additional Action Suggested: > 8.0 %Note: Hemoglobin A1c results are invalid for patients with abnormal amounts of HbF. Blood transfusions may impact the HbA1c concentration in the patient sample. Estimated Average Glucose 108 mg/dL [facility] Comment:eAG = Estimated ave rage glucose which is %A1C expressed asaverage glucose, using the formula of the P5Y-TyqkogbOypaygx Glucose study (ADAG), Diabetes Care, Vol.31,#8,Dec. 2007 Blood Venous blood specimen / Unknown 12/20/2024 4:25 PM EDT 12/20/2024 5:28 PM EDT Vick Deirdre ANP LAB BLOOD ORDERABLES Final Resul t Performing Organization Address [facility] Co de Phone Number [facility] [address] [place] [phone] * (ABNORMAL) Lipid Panel, Standard (12/20/2024 4:25 PM EDT) Triglycerides 71 <150 mg/dL [facility] Comment:Desirable Triglyceri de: less than 150 mg/dLBorderline High Triglyceride 150-199 mg/dLHigh Triglyceride: 200-499 mg/dLVery High Triglyceride: greater than or equal to 5OO mg/dL Cholesterol 148 <200 mg/dL [facility] Comment:Desirable Cholestero l: less than 200 mg/dLBorderline High Cholesterol: 200-239 mg/dLHigh Cholesterol: greater than 239 mg/dL LDL Cholesterol Calculated 96 <100 mg/dL [facility] Comment:Desirable LDL: less than 100 mg/dLNear Optimal/Above Optimal LDL: 110- 129 mg/dLBorderline High LDL: 130-159 mg/dLHigh LDL: 160-189 mg/dLVery High LDL: greater than or equal to 190 mg/dL HDL Cholesterol 38(L) >40 mg/dL [facility] Comment:Desirable HDL: great er than 40 mg/dL Note: This HDL assay may give artificially low results in patients with liver disease. Blood Venous blood specimen / Unknown 12/20/2024 4:25 PM EDT 12/20/2024 5:28 PM EDT Vick Boyd ANP LAB BLOOD ORDERABLES Final Resul t Performing Organization Address City/[facility]/ZIP Co de Phone Number [facility] [address] [place] [phone] * Pap Smear (07/29/2023 12:00 AM EDT) 07/29/2023 07/31/2023 1:0 0 PM EDT Narrative [facility] - 08/11/2023 1:16 PM EDT ----- ------- Name: Sandrine Resendiz Age/Sex: 32/F : 1990 Unit#: [id number] Attend Dr: Roya Dodd [facility] Re07/29/23 Status: DEP REF Location: [facility] Disch: ----- ------- SPEC : [id number] RECD: 07/31/23-1300 STATUS: OSVALDO REFreddy NUM: [id number] KINSEY: 07/29/23-[address]: Roya Dodd [facility] ENTERED: 07/31/23-1413 SP TYPE: Pap Smr OTHR DR: VICK BOYD NP ORDERED: Pap Smear Interpretation Satisfactory for evaluation. Moderate inflammation. Negative for intraepithelial lesion or malignancy. HPV mRNA E6/E7: NOT DETECTED This assay detects E6/E7 viral messenger RNA (mRNA) from 14 high-risk HPV types (16, 18, 31, 33, 35, 39, 45, 51, 52, 56, 58, 59, 66, 68) HPV testing performed by [facility], [place], [place]. See reference laboratory portion of the EMR for entire report. Clinical Information LMP: 07/14/23 Previous PAP test: 06/05/22, Abnormal Material Received ThinPrep-Cervical Copies To: Roya Dodd [address] Blanco [address] [place] [address] [place] [address] VICK BOYD NP [address] [address] ----- ------- Signed (signature on file) BABATUNDE Bartholomew (ASCP) 08/11/23 1316 ----- ------- END OF REPORT us Generic External Data Provider LAB CYTOLOGY ORDE MADISON Final Result [facility] [address] [place] [address] [phone] * (ABNORMAL) Image-Guided Pap with Age-Based Screening??with CT/NG,??Trichomonas (09/05/2022 10:13 AMEDT) Comment [employer] Comment: This order for age-based cervical cancer and STI screening follows ACOG guidelines(PB 168, 140, YWQ870). See individual assays for performing site location. Clinical Information: ASCUS HPV NEG 2021 [facility] LMP: NONE GIVEN [facility] Prev. PAP: YES [facility] Prev. BX: NONE GIVEN [facility] SOURCE: None given [facility] [employer] Statement Of Adequacy: [facility] Comment: Satisfactory for evaluation. Endocervical/transformation zone component present. General Categorization: EPITHELIAL CELL ABNORMALITY(A) [facility] [place] [employer] Interpretation/Re sult: Atypical Squamous Cells of Undetermined Significance (ASC-US)(A) [facility] [place] [employer] COMMENT: This Pap test has been evaluated with computer assisted technology. [facility] [place] [employer] Retail Sales Professional: [employer] [place] [employer] Comment: YP, CT(ASCP) CT screening location: [place] [address] Review Retail Sales Professional: [facility] [place] [facility] Comment: RMM, CT(ASCP) CT screening location: [place] [address] PATHOLOGIST: [facility] [place] [facility] Comment: Halima Gonzalez M.D. , Board Certified in Anatomic and Clinical Pathology, Cytopathology and Immunopathology (electronic signature) (Always Message) [employer] [place] [facility] Comment: EXPLANATORY NOTE: The Pap is a [...] HPV nRNA E6/E7 Not Detected Not Detected [employer] Comment: Methodology: Clinical Account Specialist-Mediated Amplification This assay detects E6/E7 viral messenger RNA (mRNA) from 14 high-risk HPV types (16,18,31,33,35,39,45,51,52,56,58,59,66,68). Cervical sources are required for HPV testing. If a vaginal source from a patient who has had a total hysterectomy with removal of cervix was submitted, please contact the testing laboratory for alternative testing options. For additional information, please refer to http://education.[employer]/faq/OZE030p3 (This link if provided for information/ educational purposes only.) Chlamydia trachomatis RNA, TMA, Urogenital NOT DETECTED NOT DETECTED [employer] Neisseria gonorrhoeae RNA, TMA, Urogenital NOT DETECTED NOT DETECTED [employer] (Always Message) [employer] Comment: The analytical performance characteristics of this assay, when used to test SurePath(TM) specimens have been determined by [facility]. The modifications have not been cleared or approved by the FDA. This assay has been validated pursuant to the CLIA regulations and is used for clinical purposes. For additional information, please refer to https://[employer]imum Magazine/faq/DAA432 (This link is being provided for information/ educational purposes only.) Trichomonas vaginalis, QL, TMA, PAP Vial NOT DETECTED NOT DETECTED [facility] [place] [employer] Comment: The analytical performance characteristics of this assay have been determined by [facility]. The modifications have not been cleared or approved by the FDA. This assay has been validated pursuant to the CLIA regulations and is used for clinical purposes. For additional information, please refer to http://[employer] Magazine/ faq/Trichomonastma (This link is being provided for information/ educational purposes only.) Pap Vial 09/05/2022 10:1 3 AM EDT 09/06/2022 5:38 AM EDT Trinity Lemus [facility] LAB CYTOLOGY ORDERABLES F inal Result [facility] [address], [place] [phone] [facility] [address] [place] [phone] from Last 3 Months or Most Recently Relevant to Health Maintenance Insurance [facility] [place] STAND ADULT Care Teams Communications Director Relationship Specialty Start Date End Date Vick Boyd ANP [address] [place] [phone] PCP - General Family Medicine 05/26/20
--- OUTSIDE RECORDS SUMMARY | 2025-02-15 17:03 | XMS_ITS | Encounter Summary ---
Author Organization [facility] [employer] [facility] Address [address] [facility] 7t h Floor [place] [phone] Care Team Providers Care Shade Cutter Name Role Phone Chelsi Gilmore Primary Care Provider Encounter Details Date Type Department Care Team (Latest Contact Info) Description 09/01/2018 Abstract [facility] CONVERSIONS Dental, Provider, DDS Social History [...] Description 03/14/2025 12:45 PM EST Office Visit [facility] ADULT DENTAL [address] [place] [address] Maxime, Janiya [address] [place] [address] documented as of this encounter Visit Diagnoses Not on filedocumented in this encounter Care Teams Shade Cutter Relationship Specialty Start Date End Date Chelsi Gilmore ANP [address] [place] [address] PCP - General Family Medicine 05/26/20 documented as of this encounter
--- OUTSIDE RECORDS SUMMARY | 2025-02-15 17:03 | XMS_ITS | Clinical Summary ---
Author Organization [facility] Address [address] [place] [address] Phone Care Team Providers Care Erp Project Manager Name Role Phone Chelsi Gilmore NP Primary Care Provider [phone] Allergies Active Allergy Reactions Criticality Noted Date [...] of 3 - 19+ 3-dose series) 2008 HPV Vaccines (1 - 3-dose SCD M series) 2016 Social Influencers of Health Screening 01/07/2024 Depression Screening 05/12/2024 COVID-19 Vaccine (3 - 2024-2 6 season) 2025 01/03/2021, 12/13/2020 Influenza Vaccine (#1) 2025 Cervical Cancer Screening: P ap Smear 07/28/2026 07/29/2023 DTaP,Tdap,and Td Vaccines (4 - Td or Tdap) 10/30/2028 10/30/2018, 12/25/2017, 01/13/2015 Cholesterol Screening (Lipid Panel) 02/26/2029 02/27/2024 RSV Immunization Adult Patients (1 - 1-dose 75+ series) 2064 MMR Vaccines Aged Out 03/25/2015 No longer [...] complete this topic Insurance MEDICAID - [place] [facility] MEDICAID Care Teams Erp Project Manager Relationship Specialty Start Date End Date Chelsi Gilmore NP [address] [place] [phone] PCP - General 09/02/23
--- OUTSIDE RECORDS SUMMARY | 2025-02-15 17:03 | XMS_ITS | Encounter Summary ---
Author Organization [facility] [employer] [facility] Address [address] [place] [id number] Care Team Providers Care Hot Water Heater Installer Name Role Phone Chelsi Gilmore Primary Care Provider [phone] Encounter Details Date Type Department Care Team (Latest Contact Info) Description 07/17/2020 Abstract [facility] CONVERSION[facility] Dental, Provider, DDS Social History [...] Description 03/14/2025 12:45 PM EST Office Visit [facility] [address] [place] [address] Maxime, Janiya [address] [place] [address] documented as of this encounter Visit Diagnoses Not on filedocumented in this encounter Care Teams Hot Water Heater Installer Relationship Specialty Start Date End Date Chelsi Gilmore ANP [address] [place] [address] PCP - General Family Medicine 05/26/20 documented as of this encounter
--- OUTSIDE RECORDS SUMMARY | 2025-02-15 17:03 | XMS_ITS | Encounter Summary ---
Author Organization [employer] Address [address] [place] [address] Care Team Providers Care Academic Services Coordinator Name Role Phone Chelsi Gilmore Primary Care Provider [phone] Encounter Details Date Type Department Care Team (Late st Contact Info) Description 12/24/2024 Results Follow-Up [facility] [address] [place], [place] [id number] Chelsi Gilmore ANP [address] [place] [address] HIV-1/2 Antigen and Antibodies, Fourth Generation, with Reflexes, Hepatitis C Antibody with Reflex to HCV, RNA, Quantitative, Real-Time PCR, Lipid Panel, Standard, Additional followed-up results: 3 Social History Tobacco Use Types Packs/Day Years [...] as of this encounter Miscellaneous Notes * Result Encounter Note - PACO Angel - 12/24/2024 12:41 PM EDT Dear Sandrine Resendiz, Your lab results are normal. Please call our office if you have any questions. Los resultados de laboratorio son normales. Por favor llame a la oficina si tiene preguntas. Take care, Cu??Chelsi peña IT NETWORK ADMINISTRATOR documented in this encounter Plan of Treatment Upcoming Encounters Date Type Department Care Team (Late st Contact Info) Description 03/14/2025 12:45 PM EST Office Visit [facility] [address] [place] [address] Maxime, Janiya [address] [place] [address] documented as of this encounter Visit Diagnoses Not on filedocumented in this encounter Additional Health Concerns Assessment Noted Time PHQ-9 Depression Total Score: 5 12/21/19 25 4:16 PM EDT documented as of this encounter Care Teams Academic Services Coordinator Relationship Specialty Start Date End Date Chelsi Gilmore ANP [address] [place] [address] PCP - General Family Medicine 05/26/20 documented as of this encounter
--- NOTE | 2025-02-16 09:01 | MHC.SL.IMP ---
Date of Plan of Treatment: 02/15/25 Onset of Symptoms/Illness: 12/21/24 Date Treatment Started: 02/15/25 Admitting Diagnosis: Fibromyalgia Primary Speech & Language Diagnosis: R13.10 Dysphagia Reason for Today's Visit: 02647 Modified Barium Swallow Study Pre-evaluation Dietary Consistencies: Regular Pre-evaluation Liquid Consistency: Thin Pre-evaluation Medication Administration: Whole with Liquid Medical History: Modified Barium Swallow Study Fluoroscopic Evaluation of Swallowing Function CPT Code 02160 Evaluation Year: 2024 Reason for Study: Difficulty swallowing Referring Physician: Chelsi ANTONIO Evaluating Clinician: Geovanna Perez MA, CCC-COMBINATION WINDOW INSTALLER Study Number: 1 Patient Name: Sandrine Resendiz Status: Outpatient, Ambulatory Age: 34 Sex: Female Medical History Medical History Pain of plantar aspect of heel Ankle pain, right Sciatica associated with disorder of lumbar spine Lower back pain Left knee pain Bilateral knee pain Hemorrhoids Fibromyalgia Surgical History Tubal ligation status Current (pre-evaluation) Intake/Diet: Route: PO Diet Grade: Regular Liquid Consistencies: Thin Pre-Study Functional Oral Intake Scale (FOIS): 7- Total oral intake with no restrictions Pain: None reported at time of study SUBJECTIVE: Patient is a 34 year old female referred for a modified barium swallow study. Patient reports pain and burning sensation in her throat. She also reports globus sensation and coughing after oral intake. Oral Motor Exam Facial Symmetry: Symmetrical Mouth Occlusion: Normal Oral-Facial Teeth Characteristics: Partially Missing Oral-Facial Teeth Miscellaneous Observation: Some missing natural teeth top jaw Oral-Facial Lip Pucker Description: Normal Oral-Facial Smile (Lips) Description: Normal Oral-Facial Puff Cheeks Description: Normal Tongue Size: Normal Tongue Excursion Description: Normal Tongue Range of Movement Description: Normal Tongue Speed of Movement Description: Normal Tongue Strength of Movement (against opposing pressure): Normal Tongue Movement Characteristics: Normal/Absent Is patient able to manage secretions?: Yes Food and Liquid Trials: Oral Impairment: Lip Closure: Did not test Oral Impairment: Tongue Control During Bolus Hold: 0=Cohesive bolus between tongue to palatal seal Oral Impairment: Bolus Preparation/Mastication: 0=Timely and efficient chewing and mashing Oral Impairment: Bolus Transport/Lingual Motion: 0=Brisk tongue motion Oral Impairment: Oral Residue: 1=Trace residue lining oral structures Oral Impairment:Initiation of Pharyngeal Swallow: 0=Bolus head at posterior angle of ramus (first hyoid excursion) Pharyngeal Impairment: Soft Palate Elevation: 0=No bolus between soft palate (SP)/pharyngeal wall (PW) Pharyngeal Impairment: Laryngeal Elevation: 0=Complete superior movement of thyroid cartilage (see description) Pharyngeal Impairment: Anterior Hyoid Excursion: 0=Complete anterior movement Pharyngeal Impairment: Epiglottic Movement: 0=Complete inversion Pharyngeal Impairment: Laryngeal Vestibular Closure:: 0=Complete: no air/contrast in laryngeal vestibule Pharyngeal Impairment: Pharyngeal Stripping Wave: 0=Present: complete Pharyngeal Impairment: Pharyngeal Contraction: Did not test Pharyngeal Impairment: Pharyngoesophageal Segment Openin=Complete distension and complete duration: no obstruction of flow Pharyngeal Impairment: Tongue Base (TB) Retraction: 1=Trace column of contrast/air between TB and posterior PW Pharyngeal Impairment: Pharyngeal Residue: 0=Complete pharyngeal clearance Pharyngeal Impairment: Esophageal Clearance Upright Position: Did not test Impressions and Recommendations OBJECTIVE: Time-out: performed at 14:45 Evaluation Start: 14:30; Stop: 14:35 Patient Positioning: Standing Viewing Planes: LATERAL ONLY Contrast: MBSImP? Standardized Protocol using commercially prepared, standardized Barium viscosities, including: Varibar? THIN LIQUID (40% w/v, <15 cps) , Varibar? PUDDING (40% w/v, <4680-5465 cps) , 1/2 Shortbread Cookie (1 x1 x.25 ) [facility]: [id number] [facility] Results: Lip closure for intraoral bolus containment could not be assessed due to logistical reasons not related to physiologic impairment. Tongue control during bolus hold maintained a cohesive bolus held between tongue to palate seal. Bolus preparation and mastication resulted in timely and efficient chewing and mashing. Bolus transport/lingual motion was with brisk tongue motion. Oral residue was a trace, lining oral structures. Initiation of the pharyngeal swallow occurred as the bolus head reached the posterior angle of the mandibular ramus. Soft palate elevation resulted in no bolus between the soft palate and the pharyngeal wall. Laryngeal elevation demonstrated complete superior movement of the thyroid cartilage with complete approximation of the arytenoids to the epiglottic petiole. Anterior hyoid excursion demonstrated complete anterior movement. Epiglottic movement resulted in complete inversion. Laryngeal vestibular closure was complete, as indicated by no air or contrast within the laryngeal vestibule at the height of the swallow. Pharyngeal stripping wave was present and complete. Pharyngeal contraction could not be determined due to logistical reasons not related to physiologic impairment. Pharyngoesophageal segment opening was completely distended for complete duration with no obstruction of bolus flow. Tongue base retraction allowed a trace column of contrast or air between the retracted tongue base and the posterior pharyngeal wall. Pharyngeal residue was not present. There was complete pharyngeal clearance. Esophageal clearance in the upright position could not be assessed due to logistical reasons not related to physiologic impairment. Oral Impairment Score: 0 (absence of score, component 1) Pharyngeal Impairment Score: 0 (absence of score, component 13) Esophageal Impairment Score: --- (absence of score, component 17) Laryngeal Penetration and Aspiration: Neither penetration nor aspiration was observed in today's study with Cookie, Pudding-thick, Thin. ASSESSMENT: This exam was performed by the radiologist and the speech pathologist. Patient was standing for lateral view only. She fed herself independently and trialed the following consistencies: -thin liquids (via individual and rapid cup sips) -puree (mixture applesauce w/ barium pudding) -regular (shortbread cookies coated in barium pudding) Note good tongue control with no anterior loss of bolus and no premature posterior escape from the oral cavity. Mastication was timely and efficient. Brisk tongue motion with timely bolus transit. Pharyngeal swallow trigger was also timely. Post-swallow, there was trace residue lining the tongue which cleared on subsequent swallows. No evidence of nasopharyngeal reflux. Complete laryngeal elevation with complete epiglottic inversion and complete laryngeal vestibular closure. No evidence of aspiration or penetration during this exam. Note complete pharyngeal clearance. Liquid Intake Recommendation: Thin Liquid Intake Strategies: Unrestricted Dietary Recommendations: Regular Compensatory Strategies Recommended: Sitting Upright (90 deg), Small Bites and Sips, Rate of Ingestion Change Recommendation for Speech Therapy: NA:Typical Evaluation Text Comment: Intake Recommendations: Route: PO Diet Grade: Regular Liquid Consistencies: Thin Post-Study Functional Oral Intake Scale (FOIS): 7- Total oral intake with no restrictions Unremarkable exam. No evidence of aspiration or penetration. Good oral and pharyngeal clearance. Suggested Referrals: The patient might benefit from a referral to: Otolaryngology Indication for Referral: Patient reports pain and burning in her throat. Therapy Recommendations: Therapy will be discontinued, as swallow is deemed WFL in the oral and pharyngeal phases. Clinician - Supplemental, Miscellaneous Communication: It is important to note MBSS objective studies are snapshots in time and Patient function might vary with factors such as time of day or concomitant medical conditions. For this reason, the final treatment plan for this patient should rest with their medical care team. Additional recommendations should be considered with the totality of the Patient in mind. Thank for the opportunity to participate in the care of this patient. If you have any questions about the content of this report, please contact the [facility] at [facility]. Education: Education regarding findings from today's study and plans for therapy were provided to Patient only through Verbal Instruction. Understanding was expressed by the Patient only. Time Study Technician Clinician/Clinical Fellow: No Supervisory Statement: N/A Speech Language Pathologist: Geovanna Perez M.A., CCC-COMBINATION WINDOW INSTALLER
== END 2025-02-15 13:51 | disposition home or self-care (01) ==
LOC: HO.XRAY 13:50
PROVIDERS: Visit Provider Nurse Practitioner Primary Care
DX: R13.10 Dysphagia, unspecified (principal)
CPT/HCPCS: 74230; 92611

== ENCOUNTER → 2025-02-15 14:00 | Outpatient (BNV) | payer MEDICAID, SELFPAY | PROVIDERS: Visit Provider Radiology Diagnostic Ultrasound | DX: R13.10 Dysphagia, unspecified (principal) | CPT/HCPCS: 74230 ==

== ENCOUNTER 2025-03-01 17:24 | Outpatient (REF) | payer MEDICAID, SELFPAY ==
--- OUTSIDE RECORDS SUMMARY | 2025-03-01 21:15 | XMS_ITS | Clinical Summary ---
Author Organization [employer] Address [address] [facility] 7t [place] [address] Care Team Providers Care Fish Egg Packer Name Role Phone Vick Boyd PACO Primary Care Provider [phone] Allergies Active Allergy Reactions Criticality Noted Date [...] Type Department Care Team Description 02/07/2025 Telephone [facility] MEDICINE [address] [place] [phone] Vick Boyd ANP 12/24/2024 Results Follow-Up [facility] MEDICINE [address] [place] [phone] Vick Boyd ANP HIV-1/2 Antigen and Antibodies, Fourth Generation, with Reflexes, Hepatitis C Antibody with Reflex to HCV, RNA, Quantitative, Real-Time PCR, Lipid Panel, Standard, Additional followed-up results: 4 12/20/2024 3:30 PM EDT Office Visit [facility] MEDICINE [address] [place] [phone] Vick Boyd ANP Jaw pain (Primary Dx); Class 2 obesity with body mass index (BMI) of 35.0 to 35.9 in adult, unspecified obesity type, unspecified whether serious comorbidity present; Gastroesophageal reflux disease, unspecified whether esophagitis present; Dysphagia, unspecified type; Routine screening for STI (sexually transmitted infection) 12/20/2024 Travel 12/17/2024 3:30 PM EDT Office Visit [facility] ADULT DENTAL [address] [place] [phone] Donald Cantu, BESSY Missing teeth, acquired (Primary Dx) 12/17/[address] [address] Vick Boyd ANP chart prep from Last [...] Description 03/14/2025 12:45 PM EST Office Visit [facility] ADULT DENTAL [address] [place] [address] Janiya Swartz [address] [place] [address] Health Maintenance Due Date Last Done Comments [...] PM EDT Narrative 02/15/2025 4:59 PM EDT [address] [address] Fluoroscopy Report Signed Patient: Sandrine Resendiz MR#: [id number] 58 : 1990 Acct:[id number] Age/Sex: 34 / F ADM Date: 02/15/25 Loc: ADDI Attending Dr: Vick Boyd PROTOTYPE MACHINE OPERATOR Ordering Physician: VICK BOYD NP Date of Service: 02/15/25 Procedure(s): FL Modified Barium Swallow Accession Number(s): [id number] cc: VICK BOYD NP Reason for Exam: [...] 02/15/25 1655 DD/ 1420 TD/TT: 02/15/25 1425 Front Desk Specialist: Procedure Note Donotuseinterpreter, Image - 02/15/2025 [place] [address] Fluoroscopy Report Signed Patient: Yovanny Resendiz#: [id number] 58 : 1990Acct:[id number] Age/Sex: 34 / FADM Date: 02/15/25 Loc: ADDI Attending Dr: Vick Boyd PROTOTYPE MACHINE OPERATOR Ordering Physician: VICK BOYD NP Date of Service: 02/15/25 Procedure(s): FL Modified Barium Swallow Accession Number(s): [id number] cc: VICK BOYD NP Reason for Exam: [...] 02/15/25 1655 DD/ 1420 TD/TT: 02/15/25 1425 Front Desk Specialist: MICHAEL [facility] IM FLUOROSCOPY PROCEDURES Final Result * Chlamydia/N. Gonorrhoeae, PCR, Urine (12/20/2024 4:25 PM EDT) CT PCR, Urine NOT DETECTED Not Detect. [facility] Comment:A not detected [...] NG PCR, Urine NOT DETECTED Not Detect. [facility] Comment:A not detected [...] 4:25 PM EDT 12/20/2024 5:27 PM EDT [facility] Boyd [facility] URINE ORDERABLES Final Resul t Performing Organization Address [facility] de Phone Number [facility] [address] [place] [phone] * Syphilis Screen (12/20/2024 4:25 PM EDT) Syphilis Screen Nonreactive Nonreactive [facility] Blood Venous blood specimen / Unknown 12/20/2024 4:25 PM EDT 12/20/2024 5:28 PM EDT [facility] Boyd [facility] BLOOD ORDERABLES Final Resul t Performing Organization Address [facility] de Phone Number [facility] [address] [place] [phone] * Hepatitis C Antibody with Reflex to HCV, RNA, Quantitative, Real-Time PCR (12/20/2024 4:25 PM EDT) Pathologist [facility] Hepatitis C Antibody Nonreactive Nonreactive [facility] Comment:Antibodies to HCV no t detected; does not exclude early acuteHCV infection. Blood Venous blood specimen / Unknown 12/20/2024 4:25 PM EDT 12/20/2024 5:28 PM EDT [facility] Boyd [facility] BLOOD ORDERABLES Final Resul t Performing Organization Address [facility] de Phone Number [facility] [address] [place] [phone] * HIV-1/2 Antigen and Antibodies, Fourth Generation, with Reflexes (12/20/2024 4:25 PM EDT) HIV AB/AG Nonreactive Nonreactive [facility] Comment:HIV-1 p24 Ag and/or HIV-1/HIV-2 Ab not detected.A test result that is nonreactive does not exclude thepossibility of exposure to or infection with HIV-1 and/orHIV-2. Nonreactive results in this assay for individualswith prior exposure to HIV-1 and/or HIV-2 may be due toantigen and antibody levels that are below the limit ofdetection of this assay.The [facility] HIV Ag/Ab Combo assay result andsupplemental assay results should be interpreted inconjunction with the patient's clinical presentation,history and other laboratory results. If the results areinconsistent with clinical evidence, additional testing issuggested to confirm the result. Blood Venous blood specimen / Unknown 12/20/2024 4:25 PM EDT 12/20/2024 5:28 PM EDT [facility] LAB BLOOD ORDERABLES Final Resul t [facility] [address] [place] [phone] * Hemoglobin A1c (12/20/2024 4:25 PM EDT) Pathologist [facility] Hemoglobin A1c 5.4 <6.0 % [facility] Comment:Hemoglobin A1C Refer ence Range Adults: 4.8 - 6.0 % Non diabetic: < 6.0 % Goal: < 7.0 %Additional Action Suggested: > 8.0 %Note: Hemoglobin A1c results are invalid for patients with abnormal amounts of HbF. Blood transfusions may impact the HbA1c concentration in the patient sample. Estimated Average Glucose 108 mg/dL [facility] Comment:eAG = Estimated ave rage glucose which is %A1C expressed asaverage glucose, using the formula of the R5A-VlnqvsxIghxypq Glucose study (ADAG), Diabetes Care, Vol.31,#8,Dec. 2007 Blood Venous blood specimen / Unknown 12/20/2024 4:25 PM EDT 12/20/2024 5:28 PM EDT Vick Deirdre ANP LAB BLOOD ORDERABLES Final Resul t Performing Organization Address [facility] Co de Phone Number [facility] [address] [place] [phone] * (ABNORMAL) Lipid Panel, Standard (12/20/2024 4:25 PM EDT) Triglycerides 71 <150 mg/dL [facility] Comment:Desirable Triglyceri de: less than 150 mg/dLBorderline High Triglyceride 150-199 mg/dLHigh Triglyceride: 200-499 mg/dLVery High Triglyceride: greater than or equal to 5OO mg/dL Cholesterol 148 <200 mg/dL [facility] Comment:Desirable Cholestero l: less than 200 mg/dLBorderline High Cholesterol: 200-239 mg/dLHigh Cholesterol: greater than 239 mg/dL LDL Cholesterol Calculated 96 <100 mg/dL [facility] Comment:Desirable LDL: less than 100 mg/dLNear Optimal/Above Optimal LDL: 110- 129 mg/dLBorderline High LDL: 130-159 mg/dLHigh LDL: 160-189 mg/dLVery High LDL: greater than or equal to 190 mg/dL HDL Cholesterol 38(L) >40 mg/dL [facility] Comment:Desirable HDL: great er than 40 mg/dL Note: This HDL assay may give artificially low results in patients with liver disease. Blood Venous blood specimen / Unknown 12/20/2024 4:25 PM EDT 12/20/2024 5:28 PM EDT Vick Boyd ANP LAB BLOOD ORDERABLES Final Resul t Performing Organization Address City/[facility]/ZIP Co de Phone Number [facility] [address] [place] [phone] * Pap Smear (07/29/2023 12:00 AM EDT) 07/29/2023 07/31/2023 1:0 0 PM EDT Narrative [facility] - 08/11/2023 1:16 PM EDT ----- ------- Name: Sandrine Resendiz Age/Sex: 32/F : 1990 Unit#: [id number] Attend Dr: Roya Dodd [facility] Re07/29/23 Status: DEP REF Location: [facility] Disch: ----- ------- SPEC : [id number] RECD: 07/31/23-1300 STATUS: OSVALDO REFreddy NUM: [id number] KINSEY: 07/29/23-[address]: Roya Dodd [facility] ENTERED: 07/31/23-1413 SP TYPE: Pap Smr OTHR DR: VICK BOYD NP ORDERED: Pap Smear Interpretation Satisfactory for evaluation. Moderate inflammation. Negative for intraepithelial lesion or malignancy. HPV mRNA E6/E7: NOT DETECTED This assay detects E6/E7 viral messenger RNA (mRNA) from 14 high-risk HPV types (16, 18, 31, 33, 35, 39, 45, 51, 52, 56, 58, 59, 66, 68) HPV testing performed by [employer], [place], [place]. See reference laboratory portion of the EMR for entire report. Clinical Information LMP: 07/14/23 Previous PAP test: 06/05/22, Abnormal Material Received ThinPrep-Cervical Copies To: Roya Dodd [address] Blanco [address] [place] [address] [place] [address] VICK BOYD NP [address] [address] ----- ------- Signed (signature on file) BABATUNDE Bartholomew (ASCP) 08/11/23 1316 ----- ------- END OF REPORT us Generic External Data Provider LAB CYTOLOGY [place]DE [place] Final Result [facility] [address] [place] [address] [phone] * (ABNORMAL) Image-Guided Pap with Age-Based Screening??with CT/NG,??Trichomonas (09/05/2022 10:13 AMEDT) Comment [facility] Comment: This order for age-based cervical cancer and STI screening follows ACOG guidelines(PB 168, 140, IMY982). See individual assays for performing site location. Clinical Information: ASCUS HPV NEG 2021 [facility] LMP: NONE GIVEN [facility] Prev. PAP: YES [facility] Prev. BX: NONE GIVEN [facility] SOURCE: None given [facility] [employer] Statement Of Adequacy: [facility] Comment: Satisfactory for evaluation. Endocervical/transformation zone component present. General Categorization: EPITHELIAL CELL ABNORMALITY(A) [facility] [place] [employer] Interpretation/Re sult: Atypical Squamous Cells of Undetermined Significance (ASC-US)(A) [employer] [place] [employer]t COMMENT: This Pap test has been evaluated with computer assisted technology. [employer] [place] [employer] Money Order Clerk: [employer] [place] [employer] Comment: YP, CT(ASCP) CT screening location: [place] [address] Review Money Order Clerk: [employer] [place] [employer] Comment: RMM, CT(ASCP) CT screening location: [place] [address] PATHOLOGIST: [employer] [place] [employer] Comment: Halima Gonzalez M.D. , Board Certified in Anatomic and Clinical Pathology, Cytopathology and Immunopathology (electronic signature) (Always Message) [employer] Comment: EXPLANATORY NOTE: The Pap is a [...] HPV nRNA E6/E7 Not Detected Not Detected Materia Comment: Methodology: Fire And Explosion Investigator-Mediated Amplification This assay detects E6/E7 viral messenger RNA (mRNA) from 14 high-risk HPV types (16,18,31,33,35,39,45,51,52,56,58,59,66,68). Cervical sources are required for HPV testing. If a vaginal source from a patient who has had a total hysterectomy with removal of cervix was submitted, please contact the testing laboratory for alternative testing options. For additional information, please refer to http://education.[employer]/faq/YMF997w6 (This link if provided for information/ educational purposes only.) Chlamydia trachomatis RNA, TMA, Urogenital NOT DETECTED NOT DETECTED Materia Neisseria gonorrhoeae RNA, TMA, Urogenital NOT DETECTED NOT DETECTED Materia Comment Materia Comment: The analytical performance characteristics of this assay, when used to test SurePath(TM) specimens have been determined by [employer]. The modifications have not been cleared or approved by the FDA. This assay has been validated pursuant to the CLIA regulations and is used for clinical purposes. For additional information, please refer to https://Alsbridge.[employer]/faq/LKX543 (This link is being provided for information/ educational purposes only.) Trichomonas vaginalis, QL, TMA, PAP Vial NOT DETECTED NOT DETECTED [employer] [place] [employer] Comment: The analytical performance characteristics of this assay have been determined by [employer]. The modifications have not been cleared or approved by the FDA. This assay has been validated pursuant to the CLIA regulations and is used for clinical purposes. For additional information, please refer to http://Als[employer]/ faq/Trichomonastma (This link is being provided for information/ educational purposes only.) Pap Vial 09/05/2022 10:1 3 AM EDT 09/06/2022 5:38 AM EDT [facility] LAB CYTOLOGY ORDERABLES F inal Result [facility] [address], [place] [address] [employer] [facility] [address] [place] [address] from Last 3 Months or Most Recently Relevant to Health Maintenance Insurance [facility] ST[place] AD[place] Care Teams Fish Egg Packer Relationship Specialty Start Date End Date Vick Boyd ANP [address] [place] [phone] PCP - General Family Medicine 05/26/20
--- OUTSIDE RECORDS SUMMARY | 2025-03-01 21:16 | XMS_ITS | Encounter Summary ---
Author Organization [facility] [employer] [facility] Address [address] [facility] 7t [place] [address] Care Team Providers Care Estate Planning Counselor Name Role Phone Chelsi Gilmore Primary Care Provider [phone] Encounter Details Date Type Department Care Team (Latest Contact Info) Description 07/17/2020 Abstract [facility] CONVERSIONS Dental, Provider, DDS Social History [...] Description 03/14/2025 12:45 PM EST Office Visit [facility] ADULT DENTAL [address] [place] [address] Maxime, Janiya [address] [place] [address] documented as of this encounter Visit Diagnoses Not on filedocumented in this encounter Care Teams Estate Planning Counselor Relationship Specialty Start Date End Date Chelsi Gilmore ANP [address] [place] [address] PCP - General Family Medicine 05/26/20 documented as of this encounter
--- OUTSIDE RECORDS SUMMARY | 2025-03-01 21:16 | XMS_ITS | Clinical Summary ---
Author Organization [facility] Address [address] [place] [address] Phone Care Team Providers Care Family Development Specialist Name Role Phone Chelsi Gilmore NP Primary Care Provider [phone] Allergies Active Allergy Reactions Criticality Noted Date [...] complete this topic Insurance MEDICAID - [place] [facility] MEDICAID Care Teams Family Development Specialist Relationship Specialty Start Date End Date Chelsi Gilmore NP [address] [place] [phone] PCP - General 09/02/23
--- OUTSIDE RECORDS SUMMARY | 2025-03-01 21:16 | XMS_ITS | Encounter Summary ---
Author Organization [facility] [employer] [facility] Address [address] [facility] 7t [place] [address] Care Team Providers Care Ice Rink Attendant Name Role Phone Chelsi Gilmore Primary Care Provider [phone] Encounter Details Date Type Department Care Team (Latest Contact Info) Description 09/01/2018 Abstract [facility] CONVERSIONS Dental, Provider, DDS Social History Tobacco [...] Description 03/14/2025 12:45 PM EST Office Visit [facility] ADULT DENTAL [address] [place] [address] Maxime, Janiya [address] [place] [address] documented as of this encounter Visit Diagnoses Not on filedocumented in this encounter Care Teams Ice Rink Attendant Relationship Specialty Start Date End Date Chelsi Gilmore ANP [address] [place] [address] PCP - General Family Medicine 05/26/20 documented as of this encounter
--- OUTSIDE RECORDS SUMMARY | 2025-03-01 21:16 | XMS_ITS | Encounter Summary ---
Author Organization [employer] Address [address] [facility] [address]t [place] [address] Care Team Providers Care Bottom Turning Lathe Turner Name Role Phone Chelsi Gilmore PACO Primary Care Provider [phone] Reason for Visit * Reason Onset Date Comments mail referral scanned on 08/1309/09/2024 Encounter Details Date Type Department Care Team (Late st Contact Info) Description 09/09/2024 Telephone [facility] ADULT DENTAL [address] [place], [place] [phone] Donald Cantu DDS [address] [place], [place] [phone] mail referral scanned on 08/13 Social History [...] Description 03/14/2025 12:45 PM EST Office Visit [facility] ADULT DENTAL [address] [place] [address] Maxime, Janiya [address] [place] [address] documented as of this encounter Visit Diagnoses Not on filedocumented in this encounter Additional Health Concerns Assessment Noted Time PHQ-9 Depression Total Score: 4 10/02/19 23 2:23 PM EDT documented as of this encounter Care Teams Bottom Turning Lathe Turner Relationship Specialty Start Date End Date Chelsi Gilmore ANP [address] [place] [address] PCP - General Family Medicine 05/26/20 documented as of this encounter
== END 2025-03-01 17:25 | disposition home or self-care (01) ==
LOC: HO.LNP 17:24
PROVIDERS: Visit Provider Nurse Practitioner Primary Care
DX: K21.9 Gastro-esophageal reflux disease without esophagitis (principal)
CPT/HCPCS: 87338

== ENCOUNTER 2025-04-11 13:33 | Outpatient (REF) | payer MEDICAID, SELFPAY ==
--- OUTSIDE RECORDS SUMMARY | 2025-04-11 13:40 | XMS_ITS | Encounter Summary ---
Author Organization [email or web address] Address [address] [facility] [address] [place] [address] Care Team Providers Care Mammal Keeper Name Role Phone Chelsi Gilmore PACO Primary Care Provider [phone] Reason for Visit * Reason Comments Anxiety Encounter Details Date Type Department Care Team (Late st Contact Info) Description 04/11/2025 1:40 PM EST Office Visit [facility] [address] [place], [place] [phone] Deborah Lugo MD [address] [place], [place] [phone] Generalized anxiety disorder with panic attacks (Primary Dx); Class 2 obesity due to excess calories without serious comorbidity with body mass index (BMI) of 35.0 to 35.9 in adult; Screen for STD (sexually transmitted disease) Social History Tobacco Use Types Packs/Day Years Used Date Smoking Tobacco: Former Passive Smoke Exposure: Never Smokeless Tobacco: Never Alcohol Use Standard Drinks/Week Comments Never 0 (1 standard drink = 0.6 oz pur e alcohol) Depression Answer Date Recorded Patient Health Questionnaire-9 Score 20 04/11/2025 Patient Health Questionnaire-9 Score 20 04/11/2025 Last PHQ-9: Questionnaire Data Not on file 1 06/12/2024 Housing Stability Answer Date Recorded What is [...] Answer Date Recorded Patient Health Questionnaire-2 Score 6 04/11/2025 Internet Access Answer Date Recorded Internet Access [...] Sign Reading Time Taken Comments Blood Pressure 118/81 04/11/2025 12:58 PM EST Pulse 79 04/11/2025 12:58 PM EST Temperature 36.9 C (98.4 F) 04/11/2025 12:58 PM EST Respiratory Rate 18 04/11/2025 12:58 PM EST Oxygen Saturation 97% 04/11/2025 12:58 PM EST Inhaled Oxygen Concentration - - Weight 95.4 kg (210 lb 6.4 oz) 04/11/2025 12:58 PM EST Height 165.1 cm (5' 5 ) 04/11/2025 12:58 PM EST Body Mass Index 35.01 04/11/2025 12:58 PM EST documented in this encounter Functional Status * Over the past 2 weeks, how often have you been bothered by any of the following problems? Question Answer Date of Assessment Author Patient Health Questionnaire-2 Score 6 /0 05/2024 12:54 PM EST Chyna Lazaro * Little interest or pleasure in doing things Answer Date of Assessment Author Nearly every day 04/11/2025 12:54 PM EST Chyna Lazaro * Feeling down, depressed, or hopeless Answer Date of Assessment Author Nearly every day 04/11/2025 12:54 PM EST Chyna Lazaro * Trouble falling or staying asleep, or sleeping too much Answer Date of Assessment Author More than half the days 04/11/2025 12:54 PM EST Chyna Lazaro * Feeling tired or having little energy Answer Date of Assessment Author Nearly every day 04/11/2025 12:54 PM EST Chyna Lazaro * Poor appetite or overeating Answer Date of Assessment Author More than half the days 04/11/2025 12:54 PM Chyna Gracia * Feeling bad about yourself - or that you are a failure or have let yourself or your family down Answer Date of Assessment Author Nearly every day 04/11/2025 12:54 PM Chyna Gracia * Trouble concentrating on things, such as reading the newspaper or watching television Answer Date of Assessment Author More than half the days 04/11/2025 12:54 PM EST Chyna Lazaro * Moving or speaking so slowly that other people could have noticed? Or the opposite - being so fidgety or restless that you have been moving around a lot more than usual. Answer Date of Assessment Author More than half the days 04/11/2025 12:54 PM Chyna Gracia * Thoughts that you would be better off or hurting yourself in some way Answer Date of Assessment Author Not at all 04/11/2025 12:54 PM Chyna Gracia * Patient Health Questionnaire-9 Score Answer Date of Assessment Author 20 04/11/2025 12:54 PM Chyna Gracia * Over the last 2 weeks, how often have you been bothered by any of the following problems? Question Answer Date of Assessment Author Feeling nervous, anxious, or on edge 3 05/2024 12:57 PM Chyna Gracia Not being able to stop or co ntrol worrying 3 04/11/2025 12:57 PM Chyna Gracia Worrying too much about diff erent things 3 04/11/2025 12:57 PM Chyna Gracia Trouble relaxing 3 04/11/2025 12:57 PM Carmen Graciaryniko Being so restless that it is hard to sit still 2 04/11/2025 12:57 PM Chyna Gracia Becoming easily annoyed or irritable 3 05/2024 12:57 PM Chyna Gracia Feeling afraid as if somethi ng awful might happen 0 04/11/2025 12:57 PM Chyna Gracia DEBBIE-7 Total Score 17 04/11/2025 12:57 PM Chyna Gracia * How difficult have these problems made it for you to do your work, take care of things at home, or get along with other people? Answer Date of Assessment Author Very difficult 04/11/2025 12:54 PM Chyna Gracia documented as of this encounter Progress Notes * Deborah Lugo MD - 04/11/2025 1:40 PM EST SUBJECTIVE: Sandrine Resendiz is a 34 y.o. year old female who presents for [facility]/panic attack. Denies recent illness, injury, or hospitalization. Acute Concerns: Anxiety and Depressive Symptoms Claude Nobles reports a history of anxiety since adolescence, with daily marijuana use startingat age 13 as a coping mechanism. She describes a recent worsening of symptoms over the past week, including persistent sadness, crying spells at work, insomnia, lack of motivation, anhedonia, social withdrawal, and decreased appetite. She notes feeling unable to perform daily activities such as bathing and eating, preferring to stay in bed. She experienced palpitations and tremors for the first time today, accompanied by intense emotional distress and a desire to avoid interaction. She denies fever, sore throat, or abnormal vaginal discharge. She has previously attended therapy for anxiety, most recently one to two months ago, and last year. She has not previously experienced panic attacks requiring emergency care. She reports being on psychotherapy in the past, no SI/HI Marijuana Use Daily marijuana use since age 13, initially for curiosity, now as a routine for anxiety management.She reports attempting to reduce marijuana use recently. Psychosocial Stressors Recent emotional distress triggered by lack of family support during holidays and discussion about her mother. She has two children, both with autism, and reports limited support. She denies feeling threatened or unsafe in her current relationship. Sexual History Last unprotected sexual intercourse occurred one month ago with AMAB partner she has been with for 6mo. Last STI testing was NEG on December 20, 2024. Social History Social History Narrative Not on file Problem List[1] Family History[2] Review of Systems Constitutional: Negative for chills, fatigue and fever. HENT: Negative for congestion, ear pain, nosebleeds, rhinorrhea, sinus pressure, sore throat and trouble swallowing. Eyes: Negative for pain and discharge. Respiratory: Negative for cough, chest tightness and shortness of breath. Cardiovascular: Negative for chest pain, palpitations and leg swelling. Gastrointestinal: Negative for abdominal pain, blood in stool, constipation, diarrhea and nausea. Endocrine: Negative for polydipsia and polyuria. Genitourinary: Negative for dysuria, frequency, genital sores, pelvic pain and vaginal discharge. Musculoskeletal: Negative for back pain and neck pain. Skin: Negative for rash. Allergic/Immunologic: Negative for environmental allergies. Neurological: Negative for dizziness, seizures, weakness, light-headedness and headaches. Hematological: Negative for adenopathy. Psychiatric/Behavioral: Negative for agitation, behavioral problems, self-injury and suicidal ideas. The patient is nervous/anxious. OBJECTIVE: Vitals: 04/11/25 1258 BP: 118/81 Pulse: 79 Resp: 18 Temp: 98.4 ??F (36.9 ??C) SpO2: 97% Physical Exam HENT: Right Ear: Tympanic membrane and ear canal normal. Left Ear: Tympanic membrane and ear canal normal. Mouth/Throat: Mouth: Mucous membranes are moist. Pharynx: No oropharyngeal exudate or posterior oropharyngeal erythema. Eyes: Pupils: Pupils are equal, round, and reactive to light. Cardiovascular: Rate and Rhythm: Regular rhythm. Pulses: Normal pulses. Heart sounds: Normal heart sounds. No murmur heard. Pulmonary: Breath sounds: Normal breath sounds. Abdominal: General: Bowel sounds are normal. Palpations: Abdomen is soft. Tenderness: There is no abdominal tenderness. Musculoskeletal: General: Normal range of motion. Cervical back: Neck supple. Skin: General: Skin is warm. Neurological: General: No focal deficit present. Mental Status: She is alert and oriented to person, place, and time. Psychiatric: Mood and Affect: Mood normal. Behavior: Behavior normal. Problem List Items Addressed This Visit Generalized anxiety disorder with panic attacks - Primary - Anxiety and depressive symptoms with recent exacerbation. No evidence of psychosis or suicidal ideation discussed. - Patient was evaluated by our counselor and referred to outpatient therapy, a list of provided was given to patient. - Prescribed hydroxyzine as needed for acute anxiety or panic attacks. - Start Venlafaxine daily and follow-up with PCP in 4 to 6 weeks. - Risks and side effects: Discussed possible side effects of hydroxyzine (sedation) and venlafaxine(transient palpitations), with instruction to report any adverse effects. - Recommended gradual reduction of cannabis use as part of overall mental health management. Emphasized importance of addressing anxiety and depressive symptoms with non-cannabis interventions. - Risks and side effects: Discussed potential for increased cannabis tolerance and negative mental health effects with continued use. Relevant Medications venlafaxine XR (Effexor XR) 37.5 MG 24 hr capsule Other Relevant Orders TSH with Reflex to Free T4 Obesity Advised about increased exercise, limit 50 minutes of moderate physical activity daily. Advised to treat depression and follow-up with PCP, may be a good candidate for medication therapy including Topamax or Xenical. Screen for STD (sexually transmitted disease) Advised regarding use of condom at all times, Check STIs today, discussed with her about walk-in STI testing at [facility] building Relevant Orders Chlamydia/Trichomonas/Neisseria gonorrhoeae, PCR, Urine HIV-1/2 Antigen and Antibodies, Fourth Generation, with Reflexes Syphilis Screen Hepatitis Panel, General This note was drafted using Ambient (AI) technology. The patient/patient's guardian has been informed and has consented to the use of this technology: Yes No follow-ups on file. Medications Ordered Prior to Encounter[3] [1] Patient Active Problem List Diagnosis Fibromyalgia Severe episode of recurrent major depressive disorder, without psychotic features (CMS/HCC) (HCC) Vitamin D deficiency Reactive airway disease ALT (SGPT) level raised Decreased hearing Pain of breast Obesity Herpes zoster without complication Dyspnea Chronic pain of right knee Acute right ankle pain Dental plaque Missing teeth, acquired Dental caries Orthodontic treatment stopped Tooth sensitivity Generalized anxiety disorder with panic attacks Cannabis use disorder Screen for STD (sexually transmitted disease) [2] Family History Problem Relation Name Age of Onset Breast cancer Mother 38 Diabetes Father Diabetes Brother Stroke Paternal Grandmother [3] Current Outpatient Medications on File Prior to Visit Medication Sig Dispense Refill omeprazole (PriLOSEC) [address] capsule Take 1 capsule (20 mg) by mouth before breakfast. Do not crush or chew. 60 capsule 0 No current facility-administered medications on file prior to visit. documented in this encounter Miscellaneous Notes * Assessment & Plan Note - Deborah Lugo MD - 04/11/2025 4:17 PM EST Associated Problem(s): Screen for STD (sexually transmitted disease) Advised regarding use of condom at all times, Check STIs today, discussed with her about walk-in STI testing at [facility] building * Assessment & Plan Note - Deborah Lugo MD - 04/11/2025 4:17 PM EST Associated Problem(s): Obesity Advised about increased exercise, limit 50 minutes of moderate physical activity daily. Advised to treat depression and follow-up with PCP, may be a good candidate for medication therapy including Topamax or Xenical. * Assessment & Plan Note - Deborah Lugo MD - 04/11/2025 1:31 PM EST Associated Problem(s): Generalized anxiety disorder with panic attacks - Anxiety and depressive symptoms with recent exacerbation. No evidence of psychosis or suicidal ideation discussed. - Patient was evaluated by our counselor and referred to outpatient therapy, a list of provided was given to patient. - Prescribed hydroxyzine as needed for acute anxiety or panic attacks. - Start Venlafaxine daily and follow-up with PCP in 4 to 6 weeks. - Risks and side effects: Discussed possible side effects of hydroxyzine (sedation) and venlafaxine(transient palpitations), with instruction to report any adverse effects. - Recommended gradual reduction of cannabis use as part of overall mental health management. Emphasized importance of addressing anxiety and depressive symptoms with non-cannabis interventions. - Risks and side effects: Discussed potential for increased cannabis tolerance and negative mental health effects with continued use. documented in this encounter Plan of Treatment Upcoming Encounters Date Type Department Care Team (Late st Contact Info) Description 04/21/2025 9:00 AM EST Office Visit [facility] [address] [place] [address] Donald Cantu, DDS [address] [place] [address] 05/17/2025 11:15 AM EST Office Visit [facility] [address] [place] [address] Chelsi Gilmore, ANP [address] [place] [address] 2025 10:15 AM EDT Office Visit [facility] [address] [place] [address] Maxime, Janiya [address] [place] [address] Scheduled Orders Name Type Priority Associated Diagnoses Orde r Schedule Chlamydia/Trichomonas/Ne isseria gonorrhoeae, PCR, Urine Lab Routine Screen for STD (sexually transmitted disease) Expected: 04/11/2025 (Approximate), Expires: 04/11/2026 HIV-1/2 Antigen and Antibodies, Fourth Generation, with Reflexes Lab Routine Screen for STD (sexually transmitted disease) Expected: 04/11/2025 (Approximate), Expires: 04/11/2026 Syphilis Screen Lab Routine Screen for STD (sexually transmitted disease) Expected: 04/11/2025 (Approximate), Expires: 04/11/2026 Hepatitis Panel, General Lab Routine Screen for STD (sexually transmitted disease) Expected: 04/11/2025 (Approximate), Expires: 04/11/2026 documented as of this encounter Procedures Procedure Name Priority Date/Time Associated Diagnosis Comments TSH W/REFLEX TO FT4 Routine 04/11/2025 1 :39 PM EST Generalized anxiety disorder with panic attacks documented in this encounter Results * TSH with Reflex to Free T4 (04/11/2025 1:39 PM EST) TSH reflex Free T4 0.71 0.32 - 4.0 uIU/mL [facility] Blood 04/11/2025 1:39 PM EST 04/11/2025 4:15 PM EST us Deborah Lugo MD LAB BLOOD ORDERABLES Fin al Result [facility] [address] [place] [address] [phone] documented in this encounter Visit Diagnoses Diagnosis Generalized anxiety disorder with panic attacks- Primary Class 2 obesity due to excess calories without serious comorbidity with body mass index (BMI) of 35.0 to 35.9 in adult Screen for STD (sexually transmitted disease) Screening examination for venereal disease documented in this encounter Additional Health Concerns Assessment Noted Time PHQ-9 Depression Total Score: 20 025 12:54 PM EST documented as of this encounter Care Teams Mammal Keeper Relationship Specialty Start Date End Date Chelsi Gilmore ANP [address] [place] [id number] PCP - General Family Medicine 05/26/20 documented as of this encounter
--- OUTSIDE RECORDS SUMMARY | 2025-04-11 17:06 | XMS_ITS | Encounter Summary ---
Author Organization [email or web address] Address [address] [facility] [address] [place] [address] Care Team Providers Care Television Agent Name Role Phone Chelsi Gilmore Primary Care Provider [phone] Encounter Details Date Type Department Care Team (Latest Contact Info) Description 04/11/2025 Travel Social History Tobacco Use Types Packs/Day [...] AM EDT documented as of this encounter Functional Status * Over the past 2 weeks, how often have you been bothered by any of the following problems? Question Answer Date of Assessment Author Patient Health Questionnaire-2 Score 6 05/2024 12:54 PM EST Vickie Lazaroe * Little interest or pleasure in doing things Answer Date of Assessment Author Nearly every day 04/11/2025 12:54 PM Vickie Graciae * Feeling down, depressed, or hopeless Answer Date of Assessment Author Nearly every day 04/11/2025 12:54 PM Carmen Graciarylinnettee * Trouble falling or staying asleep, or sleeping too much Answer Date of Assessment Author More than half the days 04/11/2025 12:54 PM Vickie Graciae * Feeling tired or having little energy Answer Date of Assessment Author Nearly every day 04/11/2025 12:54 PM Carmen Graciarylee * Poor appetite or overeating Answer Date of Assessment Author More than half the days 04/11/2025 12:54 PM EST Carmen Lazarorylee * Feeling bad about yourself - or that you are a failure or have let yourself or your family down Answer Date of Assessment Author Nearly every day 04/11/2025 12:54 PM Vickie Graciae * Trouble concentrating on things, such as reading the newspaper or watching television Answer Date of Assessment Author More than half the days 04/11/2025 12:54 PM EST Carmen Lazarorylee * Moving or speaking so slowly that other people could have noticed? Or the opposite - being so fidgety or restless that you have been moving around a lot more than usual. Answer Date of Assessment Author More than half the days 04/11/2025 12:54 PM Vickie Graciae * Thoughts that you would be better off or hurting yourself in some way Answer Date of Assessment Author Not at all 04/11/2025 12:54 PM Chyna Gracia * Patient Health Questionnaire-9 Score Answer Date of Assessment Author 20 04/11/2025 12:54 PM Chyan Gracia * Over the last 2 weeks, how often have you been bothered by any of the following problems? Question Answer Date of Assessment Author Feeling nervous, anxious, or on edge 3 05/2024 12:57 PM EST Chyna Lazaro Not being able to stop or co ntrol worrying 3 04/11/2025 12:57 PM EST Chyna Lazaro Worrying too much about diff erent things 3 04/11/2025 12:57 PM EST Chyna Lazaro Trouble relaxing 3 04/11/2025 12:57 PM EST Chyna Lazaro Being so restless that it is hard to sit still 2 04/11/2025 12:57 PM Chyna Gracia Becoming easily annoyed or irritable 3 05/2024 12:57 PM EST Chyna Lazaro Feeling afraid as if somethi ng awful [...] Chyna Gracia documented as of this encounter Plan of Treatment Upcoming Encounters Date Type Department Care Team (Late st Contact Info) Description 04/21/2025 9:00 AM EST Office Visit [facility] [address] [place] [phone] Doanld Cantu DDS [address] [place] [phone] 05/17/2025 11:15 AM EST Office Visit [facility] [address] [place] [address] Chelsi Gilmore ANP [address] [place] [address] 2025 10:15 AM EDT Office Visit [facility] [address] [place], [place] [phone] Maxime, Janiya [address] [place] [address] documented as of this encounter Visit Diagnoses Not on filedocumented in this encounter Additional Health Concerns Assessment Noted Time PHQ-9 Depression Total Score: 20 025 12:54 PM EST documented as of this encounter Care Teams Television Agent Relationship Specialty Start Date End Date Chelsi Gilmore ANP [address] [place] [address] PCP - General Family Medicine 05/26/20 documented as of this encounter
--- OUTSIDE RECORDS SUMMARY | 2025-04-11 17:06 | XMS_ITS | Encounter Summary ---
Author Organization [employer] Address [address] [facility] 7[address] [place] [address] Care Team Providers Care Medical Services Manager Name Role Phone Chelsi Gilmore PACO Primary Care Provider [phone] Reason for Visit * Reason Onset Date Comments increased anxiety 04/11/2025 Encounter Details Date Type Department Care Team ([facility] st Contact Info) Description 04/11/2025 Telephone [facility] [address] [place], [place] [phone] Deborah Lugo MD [address] [place], [place] [phone] increased anxiety Social History Tobacco Use Types Packs/Day Years [...] encounter Miscellaneous Notes * Telephone Encounter - Niya Cordero RN - 04/11/2025 12:20 PM EST Patient presents to [facility] and reporting increased anxiety she was brought back to the triage room after calling for evaluation. Patient reports that she had an anxiety attack attack at work she began crying. Patient states that she has been very tearful for the last couple days she is not eating, she doesn't want to get out of bed she just wants to sleep. Patient reports she does not have a good support system and she came here because she doesn't like feeling this way she staes she has Diagnosis of anxiety denies any medication she states she smokes weed for her anxiety only. Patient denies any thoughts of self harm and states she feels safe her and she is aware that has been called. Patient currently in triage room with door open and staff checking on her. documented in this encounter Plan of Treatment Upcoming Encounters Date Type Department Care Team (Late st Contact Info) Description 04/21/2025 9:00 AM EST Office Visit [facility] [address] [place] [address] Donald Cantu DDS [address] [place] [address] 05/17/2025 11:15 AM EST Office Visit [facility] [address] [place] [address] Chelsi Gilmore ANP [address] [place] [address] 2025 10:15 AM EDT Office Visit [facility] [address] [place], [place] [phone] Maxime Janiya [address] [place] [address] documented as of this encounter Visit Diagnoses Not on filedocumented in this encounter Additional Health Concerns Assessment Noted Time PHQ-9 Depression Total Score: 20 025 12:54 PM EST documented as of this encounter Care Teams Medical Services Manager Relationship Specialty Start Date End Date Chelsi Gilmore ANP [address] [place] [address] PCP - General Family Medicine 05/26/20 documented as of this encounter
--- OUTSIDE RECORDS SUMMARY | 2025-04-11 17:06 | XMS_ITS | Encounter Summary ---
Author Organization [facility] Address [address] [facility] [address] [place] [address] Care Team Providers Care Bread Dough Mixer Name Role Phone Chelsi Gilmore Primary Care Provider [phone] Encounter Details Date Type Department Care Team (Latest Contact Info) Description 09/01/2018 Abstract [facility] CONVERSION[facility] Dental, Provider, DDS Social History [...] Description 04/21/2025 9:00 AM EST Office Visit [facility] [address] [place] [address] Donald Cantu DDS [address] [place] [address] 05/17/2025 11:15 AM EST Office Visit [facility] [address] [place] [address] Chelsi Gilmore ANP [address] [place] [address] 2025 10:15 AM EDT Office Visit [facility] [address] [place] [address] Janiya Swartz [address] [place] [address] documented as of this encounter Visit Diagnoses Not on filedocumented in this encounter Care Teams Bread Dough Mixer Relationship Specialty Start Date End Date Chelsi Gilmore ANP [address] [place] [address] PCP - General Family Medicine 05/26/20 documented as of this encounter
--- OUTSIDE RECORDS SUMMARY | 2025-04-11 17:06 | XMS_ITS | Encounter Summary ---
Author Organization [facility] Address [address] [facility] [address] [place] [address] Care Team Providers Care Fire Information Officer Name Role Phone Chelsi Gilmore Primary Care Provider [phone] Encounter Details Date Type Department Care Team (Latest Contact Info) Description 07/17/2020 Abstract [facility] CONVERSIONS Dental, Provider, DDS Social History [...] Description 04/21/2025 9:00 AM EST Office Visit [facility] [address] [place] [address] Donald Cantu DDS [address] [place] [address] 05/17/2025 11:15 AM EST Office Visit [facility] [address] [place] [address] Chelsi Gilmore ANP [address] [place] [address] 2025 10:15 AM EDT Office Visit [facility] [address] [place] [address] Janiya Swartz [address] [place] [address] documented as of this encounter Visit Diagnoses Not on filedocumented in this encounter Care Teams Fire Information Officer Relationship Specialty Start Date End Date Chelsi Gilmore ANP [address] [place] [address] PCP - General Family Medicine 05/26/20 documented as of this encounter
--- OUTSIDE RECORDS SUMMARY | 2025-04-11 17:06 | XMS_ITS | Encounter Summary ---
Author Organization [employer] Address 75 [facility] 7t [place] [address] Care Team Providers Care Auto Carrier Driver Name Role Phone Chelsi Gilmore PACO Primary Care Provider [phone] Reason for Visit * Reason Onset Date Comments mail referral scanned on 08/1309/09/2024 Encounter Details Date Type Department Care Team (Late st Contact Info) Description 09/09/2024 Telephone [facility]ULT [facility] [address] [place], [place] [phone] Donald Cantu DDS [address] [place], [place] [phone] mail referral scanned on 08/13 Social History [...] Description 04/21/2025 9:00 AM EST Office Visit [facility] [address] [place] [address] Donald Cantu DDS [address] [place] [address] 05/17/2025 11:15 AM EST Office Visit [facility] [address] [place] [address] Chelsi Gilmore ANP [address] [place] [address] 2025 10:15 AM EDT Office Visit [facility] [address] [place] [address] Janiya Swartz [address] [place] [address] documented as of this encounter Visit Diagnoses Not on filedocumented in this encounter Additional Health Concerns Assessment Noted Time PHQ-9 Depression Total Score: 4 10/02/19 23 2:23 PM EDT documented as of this encounter Care Teams Auto Carrier Driver Relationship Specialty Start Date End Date Chelsi Gilmore ANP [address] [place] [address] PCP - General Family Medicine 05/26/20 documented as of this encounter
--- OUTSIDE RECORDS SUMMARY | 2025-04-11 17:06 | XMS_ITS | Clinical Summary ---
Author Organization [employer] Address 75 [facility] 7t [place] [address] Care Team Providers Care Shredded Filler Cigar Maker Machine Name Role Phone Vick Boyd Primary Care Provider [phone] Allergies Active Allergy Reactions Criticality Noted Date Comments Aspirin 01/04/2014 Other reaction(s): Trouble Breathing,Rash,Itchy Eye Medications * This document contains information received from the source organization and may not represent a complete record from that organization. omeprazole (PriLOSEC) [address] capsuleIndicatiantolin ns:Gastroesophag eal reflux disease, unspecified whether esophagitis present Take 1 capsule (20 mg) by mouth before breakfast. Do not crush or chew. 60 capsule 03/03/2025 Active venlafaxine XR (Effexor XR) 37.5 MG 24 hr capsule Take 1 capsule (37.5 mg) by mouth Once per day. Do not crush or chew. 30 capsule 11 04/11/2025 2:20 PM EST 04/11/2025 04/11/20 26 Active hydrOXYzine HCl (Atarax) 25 MG tablet Take 1 tablet (25 mg) by mouth if needed in the morning, at noon, and at bedtime for itching. 45 tablet 04/11/2025 2:20 PM EST 04/11/2025 Active Active Problems Problem Noted Date Diagnosed Date Generalized anxiety disorder with panic attacks 04/11/2025 Assessment & Plan (04/11/2025 4:19 PM EST): - Anxiety and depressive symptoms with recent [...] possible side effects of hydroxyzine (sedation) and venlafaxine (transient palpitations), with instruction to report any adverse effects. - Recommended gradual reduction of cannabis use as part of overall mental health management. Emphasized importance of addressing anxiety and depressive symptoms with non-cannabis interventions. - Risks and side effects: Discussed potential for increased cannabis tolerance and negative mental health effects with continued use. Cannabis use disorder 04/11/2025 Screen for STD (sexually transmitted disease) Assessment & Plan (04/11/2025 4:17 PM EST): Advised regarding use of condom at all times, Check STIs today, discussed with her about walk-in STI testing at [facility] Tooth sensitivity 03/11/2025 Dental caries 08/13/2024 Orthodontic treatment stopped 08/13/2024 [...] ALT (SGPT) level raised 11/06/2017 Obesity 07/30/2017 Assessment & Plan (04/11/2025 4:17 PM EST): Advised about increased exercise, limit 50 minutes of moderate physical activity daily. Advised to treat depression and follow-up with PCP, may be a good candidate for medication therapy including Topamax or Xenical. Pain of breast 09/09/2016 Herpes zoster without complication 09/09/2016 Reactive airway disease 05/10/2016 Severe episode of recurrent major depressive disorder, without psychotic features ([facility]) 03/29/2016 Dyspnea 03/29/2016 Encounters * This document contains information received from the source organization and may not represent a complete record from that organization. Date Type Department Care Team Description 04/11/2025 1:40 PM EST Office Visit [facility] [address] [place] [phone] Deborah Lugo MD Generalized anxiety disorder with panic attacks (Primary Dx); Class 2 obesity due to excess calories without serious comorbidity with body mass index (BMI) of 35.0 to 35.9 in adult; Screen for STD (sexually transmitted disease) 04/11/2025 Telephone [facility] [address] [place] [phone] Deborah Lugo MD increased anxiety 04/11/2025 Travel 03/11/2025 2:15 PM EDT Office Visit [facility] [address] [place] [phone] Janiya Swartz Dental caries (Primary Dx); Missing teeth, acquired; Dental plaque; Orthodontic treatment stopped; Tooth sensitivity 03/09/2025 Telephone [facility] [address] [place] [phone] Vick Boyd ANP May02/07/2025 Telephone [facility] [address] [place] [phone] Vick Boyd ANP from Last 3 Months Immunizations Immunization Administration [...] Mass Index 35.01 04/11/2025 12:58 PM EST Plan of Treatment Upcoming Encounters Date Type Department Care Team (Late st Contact Info) Description 04/21/2025 9:00 AM EST Office Visit [facility] [address] [place] [address] Donald Cantu, DDS [address] [place] [address] 05/17/2025 11:15 AM EST Office Visit [facility] [address] [place] [address] Vick Boyd, ANP [address] [place] [address] 2025 10:15 AM EDT Office Visit [facility] [address] [place], [place] [phone] Janiya Swartz [address] [place] [address] Health Maintenance Due Date Last Done Comments Family Planning (PISQ) 2004 HPV Vaccines (1 - 3-dose series) 2004 Hepatitis B Vaccines (1 of 3 - 19+ 3-dose series) 2008 COVID-19 Vaccine (3 - season) 2025 01/03/2021, 12/13/2020 Influenza Vaccine (#1) 2025 SDOH Screening 06/11/2025 06/11/2024 Alcohol/Substance Use Screening 06/25/2025 06/25/2024 Dental Oral Exam 09/09/2025 03/11/2025, 08/2024, 01/13/2024, Additional history exists Dental Prophylaxis 09/09/2025 03/11/2025, 0 08/31/2024, 01/13/2024, Additional history exists Depression Monitoring 10/10/2025 04/11/2025, 025 Disability Screening 12/20/2025 12/20/2024 Tobacco Screening 03/11/2026 03/11/2025 Dental X-Ray: Bitewings 03/12/2026 03/11/20 25, 08/13/2024, 01/13/2024, Additional history exists Cervical Cancer Screening 07/28/2026 HPV/Cotest 07/28/2026 09/05/2022, 05/13, 10/01/2021, Additional history exists Pap Smear 07/28/2026 07/29/2023, 08/11, 06/05/2022, Additional history exists Dental X-Ray: Full Mouth 01/13/2027 024, 07/01/2023, 05/22/2020, Additional history exists DTaP/Tdap/Td Vaccines (4 - Td or Tdap) [...] EST Generalized anxiety disorder with panic attacks PERIODIC ORAL EVALUATION - ESTABLISHED PATIENT Routine 03/11/2025 2:15 PM EDT INTRAORAL - PERIAPICAL EACH ADDITIONAL RADIOGRAPHIC IMAGE Routine 03/11/2025 2:15 PM EDT Tooth sensitivity INTRAORAL - PERIAPICAL FIRST RADIOGRAPHIC IMAGE Routine 03/11/2025 2:15 PM EDT Tooth sensitivity BITEWINGS - 2 RADIOGRAPHIC IMAGES Routine 03/11/2025 2:15 PM EDT Tooth sensitivity CASE PRESENTATION, DETAILED AND EXTENSIVE TREATMENT PLANNING Routine 03/11/2025 2:15 PM EDT Dental caries Missing teeth, acquired Dental plaque Orthodontic treatment stopped ORAL HYGIENE INSTRUCTIONS Routine 03/11/2025 2:15 PM EDT Dental caries Dental plaque PROPHYLAXIS - ADULT Routine 03/11/2025 2 :15 PM EDT Dental plaque HELICOBACTER PYLORI AG, EIA, STOOL Routine 03/01/2025 1:45 PM EDT Gastroesophageal reflux disease, unspecified whether esophagitis present FL BARIUM SWALLOW MODIFIED Routine 02/15/2025 2:20 PM EDT Dysphagia, unspecified type HEPATITIS C AB W/REFL TO HCV RNA, QN, PCR Routine 12/20/2024 4:25 PM EDT Routine screening for STI (sexually transmitted infection) HIV 1/2 ANTIGEN/ANTIBODY, FOURTH GENERATION W/RFL Routine 12/20/2024 4:25 PM EDT Routine screening for STI (sexually transmitted infection) LIPID PANEL, STANDARD Routine 12/20/2024 4:25 PM EDT Class 2 obesity with body mass index (BMI) of 35.0 to 35.9 in adult, unspecified obesity type, unspecified whether serious comorbidity present INTRAORAL - COMPLETE SERIES OF RADIOGRAPHIC IMAGES Routine 01/13/2024 1:00 PM EDT Dental plaque Missing teeth, acquired PAP SMEAR Routine 07/29/2023 12:00 AM EDT IMAGE-GUIDED PAP W/AGE BASED SCR,W/CT/NG/TRICH Routine 09/05/2022 10:13 AM EDT Atypical squamous cells of undetermined significance (ASCUS) on Papanicolaou smear of cervix from Last 3 Months or Most Recently Relevant to Health Maintenance Results * TSH with Reflex to Free T4 (04/11/2025 1:39 PM EST) TSH reflex Free T4 0.71 0.32 - 4.0 uIU/mL [facility] Blood 04/11/2025 1:39 PM EST 04/11/2025 4:15 PM EST us Deborah Lugo MD LAB BLOOD ORDERABLES Fin al Result Performing Organization Address [facility]/ZIP Co de Phone Number [facility] [address] [place] [phone] * Helicobacter pylori??Antigen, EIA, Stool (03/01/2025 1:45 PM EDT) H pylori Ag Stool SEE NOTE [facility] Comment:HELICOBACTER PYLORI AG, EIA, STOOL Micro Number: [id number] Test Status: Final Specimen Source: Stool Specimen Quality: Adequate H.pylori Ag: Not Detected Antimicrobials, proton pump inhibitors, and bismuth preparations inhibit H. pylori and ingestion up to two weeks prior to testing may cause false negative results. If clinically indicated the test should be repeated on a new specimen obtained two weeks after discontinuing treatment. Reference Range: Not DetectedTHIS TEST WAS PERFORMED AT:[facility] [address] [phone] STANTON MD Stool Rectal contents / Unknown 03/01/2025 1:45 PM EDT 03/01/2025 5:24 PM EDT us Vick ANTONIO LAB BODY FLUIDS AND STOOLS ORDER ARIANA Final Result Performing Organization Address [facility]/ZIP Co de Phone Number [facility] [address] [place] [phone] * FL BARIUM SWALLOW MODIFIED (02/15/2025 2:20 PM EDT) Anatomical Region Laterality Modality Head, Neck Radiographic Belle ging 02/15/2025 2:20 PM EDT Narrative 02/15/2025 4:59 PM EDT [address] [address] Fluoroscopy Report Signed Patient: Sandrine Resendiz MR#: [id number] 58 : 1990 Acct:[id number] Age/Sex: 34 / F ADM Date: 02/15/25 Loc: ADDI Attending Dr: Vick Boyd LOCKSTITCH COLLAR SETTER Ordering Physician: VICK BOYD NP Date of Service: 02/15/25 Procedure(s): FL Modified Barium Swallow Accession Number(s): [id number] cc: VICK BODY NP Reason for Exam: difficulty swallowing EXAMINATION: [...] OV> 02/15/25 1655 DD/ 1420 TD/TT: 02/15/25 142 Inspector Balance Wheel Motion: Procedure Note Donotuseinterpreter, Image - 02/15/[address] [address] Fluoroscopy Report Signed Patient: Yovanny Resendiz#: [id number] 58 : 1990Acct:[id number] Age/Sex: 34 / FADM Date: 02/15/25 Loc: ADDI Attending Dr: Vick Boyd LOCKSTITCH COLLAR SETTER Ordering Physician: VICK BOYD NP Date of Service: 02/15/25 Procedure(s): FL Modified Barium Swallow Accession Number(s): [id number] cc: VICK BOYD NP Reason for Exam: [...] 02/15/25 1655 DD/ 1420 TD/TT: 02/15/25 1425 Inspector Balance Wheel Motion: MICHAEL us Vick Boyd ANP IMG FLUOROSCOPY PROCEDURES Final Result * Hepatitis C Antibody with Reflex to HCV, RNA, Quantitative, Real-Time PCR (12/20/2024 4:25 PM EDT) Hepatitis C Antibody Nonreactive Nonreactive [facility] Comment:Antibodies to HCV no t detected; does not exclude early acuteHCV infection. Blood Venous blood specimen / Unknown 12/20/2024 4:25 PM EDT 12/20/2024 5:28 PM EDT us Vick Boyd ANP LAB BLOOD ORDERABLES Final Resul t [facility] [address] [place] [phone] [phone] * HIV-1/2 Antigen and Antibodies, Fourth Generation, with Reflexes (12/20/2024 4:25 PM EDT) HIV AB/AG Nonreactive Nonreactive [facility] Comment:HIV-1 p24 Ag and/or HIV-1/HIV-2 Ab not detected.A test result that is nonreactive does not exclude thepossibility of exposure to or infection with HIV-1 and/orHIV-2. Nonreactive results in this assay for individualswith prior exposure to HIV-1 and/or HIV-2 may be due toantigen and antibody levels that are below the limit ofdetection of this assay.The [employer] Balloon HIV Ag/Ab Combo assay result andsupplemental assay results should be interpreted inconjunction with the patient's clinical presentation,history and other laboratory results. If the results areinconsistent with clinical evidence, additional testing issuggested to confirm the result. Blood Venous blood specimen / Unknown 12/20/2024 4:25 PM EDT 12/20/2024 5:28 PM EDT Vick Boyd [facility] LAB BLOOD ORDERABLES Final Resul t [facility] [address] [place] [phone] * (ABNORMAL) Lipid Panel, Standard (12/20/2024 4:25 PM EDT) Triglycerides 71 <150 mg/dL [facility] Comment:Desirable Triglyceri de: less than 150 mg/dLBorderline High Triglyceride 150-199 mg/dLHigh Triglyceride: 200-499 mg/dLVery High Triglyceride: greater than or equal to 5OO mg/dL Cholesterol 148 <200 mg/dL [facility] Comment:Desirable Cholestero l: less than 200 mg/dLBorderline High Cholesterol: 200-239 mg/dLHigh Cholesterol: greater than 239 mg/dL LDL Cholesterol Calculated 96 <100 mg/dL [facility] Comment:Desirable LDL: less than 100 mg/dLNear Optimal/Above Optimal LDL: 110- 129 mg/dLBorderline High LDL: 130-159 mg/dLHigh LDL: 160-189 mg/dLVery High LDL: greater than or equal to 190 mg/dL HDL Cholesterol 38(L) >40 mg/dL [facility] Comment:Desirable HDL: great er than 40 mg/dL Note: This HDL assay may give artificially low results in patients with liver disease. Blood Venous blood specimen / Unknown 12/20/2024 4:25 PM EDT 12/20/2024 5:28 PM EDT us Vick Boyd [facility] LAB BLOOD ORDERABLES Final Resul t [facility] [address] [place] [phone] * Pap Smear (07/29/2023 12:00 AM EDT) 07/29/2023 07/31/2023 1:0 0 PM EDT Narrative [facility] - 08/11/2023 1:16 PM EDT ----- ------- Name: Sandrine Resendiz Age/Sex: 32/F : 1990 Unit#: [id number] Attend Dr: Roya Dodd CNM Re07/29/23 Status: DEP REF Location: [facility] Disch: ----- ------- SPEC : [id number] RECD: 07/31/23-1300 STATUS: OSVALDO PETERSON NUM: [id number] KINSEY: 07/29/23-[address]: Roya Dodd CNM ENTERED: 07/31/23-1413 SP TYPE: Pap Smr OTHR DR: VICK BOYD NP ORDERED: Pap Smear Interpretation Satisfactory for evaluation. Moderate inflammation. Negative for intraepithelial lesion or malignancy. HPV mRNA E6/E7: NOT DETECTED This assay detects E6/E7 viral messenger RNA (mRNA) from 14 high-risk HPV types (16, 18, 31, 33, 35, 39, 45, 51, 52, 56, 58, 59, 66, 68) HPV testing performed by [facility], [place], [place]. See reference laboratory portion of the EMR for entire report. Clinical Information LMP: 07/14/23 Previous PAP test: 06/05/22, Abnormal Material Received ThinPrep-Cervical Copies To: Roya Dodd [address] [place], [place] [phone] VICK BOYD NP [address] [address] ----- ------- Signed (signature on file) BABATUNDE Bartholomew (ASCP) 08/11/23 1316 ----- ------- END OF REPORT us Generic External Data Provider LAB CYTOLOGY KELSEY WALLACE Final Result [facility] [address] [place] [address] [phone] * (ABNORMAL) Image-Guided Pap with Age-Based Screening??with CT/NG,??Trichomonas (09/05/2022 10:13 AMEDT) Comment [facility] Comment: This order for age-based cervical cancer and STI screening follows ACOG guidelines(PB 168, 140, KCI365). See individual assays for performing site location. Clinical Information: ASCUS HPV NEG 2021 [facility] [place] [facility] LMP: NONE GIVEN [employer] Prev. PAP: YES [facility] [place] [facility] Prev. BX: NONE GIVEN [facility] SOURCE: None given [facility] Statement Of Adequacy: [facility] Comment: Satisfactory for evaluation. Endocervical/transformation zone component present. General Categorization: EPITHELIAL CELL ABNORMALITY(A) [facility] Interpretation/Re sult: Atypical Squamous Cells of Undetermined Significance (ASC-US)(A) [facility] [place] [facility] Comment: This Pap test has been evaluated with computer assisted technology. [facility] [place] [facility] Watermaster: [employer] Comment: YP, CT(ASCP) CT screening location: [place] [address] Review Watermaster: [facility] [place] [facility] Comment: RMM, CT(ASCP) CT screening location: [place] [address] PATHOLOGIST: [facility] [place] [facility] Comment: Halima Stanton M.D. , Board Certified in Anatomic and Clinical Pathology, Cytopathology and Immunopathology (electronic signature) (Always Message) [employer] Comment: EXPLANATORY NOTE: The Pap is a [...] HPV nRNA E6/E7 Not Detected Not Detected [facility] Comment: Methodology: Rocket Test Fire Worker-Mediated Amplification This assay detects E6/E7 viral messenger RNA (mRNA) from 14 high-risk HPV types (16,18,31,33,35,39,45,51,52,56,58,59,66,68). Cervical sources are required for HPV testing. If a vaginal source from a patient who has had a total hysterectomy with removal of cervix was submitted, please contact the testing laboratory for alternative testing options. For additional information, please refer to http://[employer] [place]/faq/CGF124m9 (This link if provided for information/ educational purposes only.) Chlamydia trachomatis RNA, TMA, Urogenital NOT DETECTED NOT DETECTED [facility] Neisseria gonorrhoeae RNA, TMA, Urogenital NOT DETECTED NOT DETECTED [facility] Comment [facility] Comment: The analytical performance characteristics of this assay, when used to test SurePath(TM) specimens have been determined by [facility]. The modifications have not been cleared or approved by the FDA. This assay has been validated pursuant to the CLIA regulations and is used for clinical purposes. For additional information, please refer to https://[employer]/faq/WFA268 (This link is being provided for information/ educational purposes only.) Trichomonas vaginalis, QL, TMA, PAP Vial NOT DETECTED NOT DETECTED [facility] Comment: The analytical performance characteristics of this assay have been determined by [facility]. The modifications have not been cleared or approved by the FDA. This assay has been validated pursuant to the CLIA regulations and is used for clinical purposes. For additional information, please refer to http://[employer]/ faq/Trichomonastma (This link is being provided for information/ educational purposes only.) Pap Vial 09/05/2022 10:1 3 AM EDT 09/06/2022 5:38 AM EDT [facility] CYT[facility]Y ORDERABLES F inal Result [facility] [address], [place] [address] [facility] [address] [place] [address] from Last 3 Months or Most Recently Relevant to Health Maintenance [place] [address] [address] [place] [address] C3 DENTAL-[facility] MEDICAID STAND ADULT Care Teams Shredded Filler Cigar Maker Machine Relationship Specialty Start Date End Date Vick Boyd ANP [address] [place] [phone] PCP - General Family Medicine 05/26/20
[2025-04-12 07:50] LABS: Syphilis Screen Nonreactive (Nonreactive)
[2025-04-12 08:02] LABS: HBS Num1 136.24 mIU/mL (0-7.99); HBc Num1 0.15 S/CO (0.00-0.79); HBsAGNum1 0.70 S/CO (0.00-0.99); HIV Num 1 0.06 S/CO (0.00-0.99); Hepatitis A Antibody IgM 0.15 Index (0-0.79); Hepatitis B Surface Antigen Negative (Negative); ~HepC Num1 0.13 S/CO (0.00-0.79); ~Hepatitis A Antibody IgM Nonreactive (Nonreactive); ~Hepatitis B Surface Antibody REACTIVE (Nonreactive); ~Hepatitis C Antibody Nonreactive (Nonreactive)
== END 2025-04-11 13:34 | disposition home or self-care (01) ==
LOC: HO.HHCL 13:33
PROVIDERS: PCP Internal Medicine; Visit Provider Internal Medicine
DX: Z11.59 Encounter for screening for other viral diseases (principal); Z11.4 Encounter for screening for human immunodeficiency virus [HIV]; Z11.3 Encounter for screening for infections with a predominantly sexual mode of transmission; F41.1 Generalized anxiety disorder; F41.0 Panic disorder [episodic paroxysmal anxiety]
CPT/HCPCS: 36415; 84443; 86704; 86706; 86709; 86780; 86803; 87340; 87389

== ENCOUNTER 2025-05-04 12:21 | Outpatient (AMB) | payer MEDICAID, SELFPAY ==
--- OUTSIDE RECORDS SUMMARY | 2025-05-04 12:23 | XMS_ITS | Clinical Summary ---
Author Organization [address] [facility] Address [address] [place] [address] Phone Care Team Providers Care Technical Mgr Name Role Phone Chelsi Gilmore NP Primary Care Provider Allergies Active Allergy Reactions Criticality Noted Date [...] complete this topic Insurance MEDICAID - [place] [facility] MEDICAID Care Teams Technical Mgr Relationship Specialty Start Date End Date Chelsi Gilmore NP [address] [place] [phone] PCP - General 09/02/23
--- OUTSIDE RECORDS SUMMARY | 2025-05-04 12:23 | XMS_ITS | Encounter Summary ---
Author Organization [employer] Address [address] [facility] 7t [place] [address] Care Team Providers Care Structural Steel Ironworker Name Role Phone Chelsi Gilmore Primary Care Provider Reason for Visit * Reason Comments Pre-visit Planning SDOH screening was c ompleted on 06/11/2024 Encounter Details Date Type Department Care Team ([facility] st Contact Info) Description 05/03/2025 Patient Outreach [facility] [address] [place], [place] [phone] Chelsi Gilmore ANP [address] [place], [place] [phone] Pre-visit Planning (SDOH screening was completed on 06/11/2024) Social History Tobacco Use Types Packs/Day Years Used Date Smoking Tobacco: Former Passive Smoke Exposure: Never Smokeless Tobacco: Never Alcohol Use Standard Drinks/Week Comments Never 0 (1 standard drink = 0.6 oz pur e alcohol) Alcohol Answer Date Recorded How often do you have a drink containing alcohol ? 0 04/21/2025 Average Number of Drinks Not on file 025 How often do you have six or more drinks on one occasion? 0 04/21/2025 Depression Answer Date Recorded Patient Health Questionnaire-9 [...] encounter Progress Notes * Asha Bajwa - 05/03/2025 12:23 PM EST CC Asha Radford placed successful outbound call to patient for pre-visit planning. Patient name and confirmed. Patient confirms appt date and time, and has transportation arrangements. Biggest concern for appointment at this time is wants to talk to PCP about her weight. Patient advised to bring to appointment a photo id and insurance card. Appropriate screenings completed in anticipation of appointment. documented in this encounter Plan of Treatment Upcoming Encounters Date Type Department Care Team (Late st Contact Info) Description 05/17/2025 11:15 AM EST Office Visit [facility] [address] [place] [address] Chelsi Gilmore ANP [address] [place] [address] 05/17/2025 3:00 PM EST Office Visit [facility] [address] [place] [address] Sage, Ze, DMD [address] [place] [address] 2025 10:15 AM EDT Office Visit [facility] ADULT DENTAL [address] [place] [address] Janiya Swartz [address] [place] [address] documented as of this encounter Visit Diagnoses Not on filedocumented in this encounter Additional Health Concerns Assessment Noted Time PHQ-9 Depression Total Score: 20 025 12:54 PM EST documented as of this encounter Care Teams Structural Steel Ironworker Relationship Specialty Start Date End Date Chelsi Gilmore ANP [address] [place] [address] PCP - General Family Medicine 05/26/20 documented as of this encounter
--- OUTSIDE RECORDS SUMMARY | 2025-05-04 12:23 | XMS_ITS | Encounter Summary ---
Author Organization [facility] [employer] [facility] Address [address] [facility] 7 h [place] [phone] Care Team Providers Care Global Ceo Name Role Phone Chelsi Gilmore Primary Care Provider [phone] Encounter Details Date Type Department Care Team (Latest Contact Info) Description 07/17/2020 Abstract [facility] CONVERSIONS Dental, Provider, DDS Social History [...] Description 05/17/2025 11:15 AM EST Office Visit [facility] MEDICINE [address] [place] [address] Chelsi Gilmore ANP 230 [place] [address] 05/17/2025 3:00 PM EST Office Visit [facility] CHC ADULT DENTAL [address] [place] [address] Ze Cazares, WILLIAMS [address] [place] [address] 2025 10:15 AM EDT Office Visit [facility] ADULT DENTAL [address] [place] [address] Janiya Swartz [address] [place] [address] documented as of this encounter Visit Diagnoses Not on filedocumented in this encounter Care Teams Global Ceo Relationship Specialty Start Date End Date Chelsi Gilmore ANP 230 [place] [address] PCP - General Family Medicine 05/26/20 documented as of this encounter
--- OUTSIDE RECORDS SUMMARY | 2025-05-04 12:23 | XMS_ITS | Encounter Summary ---
Author Organization [employer] Address [address] [facility] 7t [place] [address] Care Team Providers Care Enrollment Management Coordinator Name Role Phone Chelsi Gilmore PACO Primary Care Provider [phone] Reason for Visit * Reason Onset Date Comments mail referral scanned on 08/1309/09/2024 Encounter Details Date Type Department Care Team (Late st Contact Info) Description 09/09/2024 Telephone [facility] ADULT DENTAL [address] [place], [place] [phone] Donald Cantu DDS [address] [place], [place] [phone] mail referral scanned on 08/13 Social History [...] Description 05/17/2025 11:15 AM EST Office Visit [facility] MEDICINE [address] [place] [address] Chelsi Gilmore ANP 230 [place] [address] 05/17/2025 3:00 PM EST Office Visit [facility] CHC ADULT DENTAL [address] [place] [address] Ze Cazares, DMD 505 [place] [address] 2025 10:15 AM EDT Office Visit [facility] ADULT DENTAL [address] [place] [address] Janiya Swartz [address] [place] [address] documented as of this encounter Visit Diagnoses Not on filedocumented in this encounter Additional Health Concerns Assessment Noted Time PHQ-9 Depression Total Score: 4 10/02/19 23 2:23 PM EDT documented as of this encounter Care Teams Enrollment Management Coordinator Relationship Specialty Start Date End Date Chelsi Gilmore ANP [address] [place] [address] PCP - General Family Medicine 05/26/20 documented as of this encounter
--- OUTSIDE RECORDS SUMMARY | 2025-05-04 12:23 | XMS_ITS | Clinical Summary ---
Author Organization [employer] Address [address] [facility] 7t [place] [address] Care Team Providers Care Plate Mill Hand Name Role Phone Vick Boyd Primary Care Provider Allergies Active Allergy Reactions [...] with her about walk-in STI testing at [facility] Tooth sensitivity 03/11/2025 Dental caries 08/13/2024 Orthodontic [...] recurrent major depressive disorder, without psychotic features ([facility]) 03/29/2016 Dyspnea 03/29/2016 Encounters * This document contains information received from the source organization and may not represent a complete record from that organization. Date Type Department Care Team Description 05/03/2025 Patient Outreach [address] [address] Vick Boyd ANP Pre-visit Planning (SDOH screening was completed on 06/11/2024) 04/21/2025 9:00 AM EST Office Visit [facility] ADULT DENTAL [address] [place] [phone] Donald Cantu DDS Dental caries (Primary Dx) 04/11/2025 1:40 PM EST Office Visit [facility] WALK-IN CENTER [address] [place] [phone] Deborah Lugo MD Generalized anxiety disorder with panic attacks (Primary Dx); Class 2 obesity due to excess calories without serious comorbidity with body mass index (BMI) of 35.0 to 35.9 in adult; Screen for STD (sexually transmitted disease) 04/11/2025 Telephone [facility] W[facility]IN [facility] [address] [place] [phone] Deborah Lugo MD increased anxiety 04/11/2025 Travel 03/11/2025 2:15 PM EDT Office Visit [facility] ADULT DENTAL [address] [place] [phone] Janiya Swartz Dental caries (Primary Dx); Missing teeth, acquired; Dental plaque; Orthodontic treatment stopped; Tooth sensitivity 03/09/[address] [phone] Vick Boyd ANP May02/07/[address] [phone] Vick Boyd ANP from Last 3 Months [...] Sign Reading Time Taken Comments Blood Pressure 124/76 04/21/2025 9:19 AM EST Pulse 79 04/11/2025 12:58 PM EST [...] Description 05/17/2025 11:15 AM EST Office Visit [facility] MEDICINE [address] [place] [address] Vick Boyd, ANP 230 [place] [address] 05/17/2025 3:00 PM EST Office Visit [facility] CHC ADULT DENTAL [address] [place], [place] [phone] Ze Cazares, DMD [address] [place] [address] 2025 10:15 AM EDT Office Visit [facility] ADULT DENTAL [address] [place] [address] Silver Swartzaris [address] [place] [address] Health Maintenance Due Date Last Done Comments Family Planning (PISQ) 2004 HPV Vaccines (1 - 3-dose series) 2004 Hepatitis B Vaccines (1 of 3 - 19+ 3-dose series) 2008 COVID-19 Vaccine ( - season) 2025 01/03/2021, 12/13/2020 Influenza Vaccine (#1) 2025 SDOH Screening 06/11/2025 06/11/2024 Dental Oral Exam 09/09/2025 03/11/2025, 08/2024, 01/13/2024, Additional history exists Dental Prophylaxis 09/09/2025 03/11/2025, 0 08/31/2024, 01/13/2024, Additional history exists Depression Monitoring 10/10/2025 04/11/2025, 025 Disability Screening 12/20/2025 12/20/2024 Dental X-Ray: Bitewings 03/12/2026 03/11/20 25, 08/13/2024, 01/13/2024, Additional history exists Alcohol/Substance Use Screening 04/21/2026 04/21/2025 Tobacco Screening 04/21/2026 04/21/2025 Cervical Cancer Screening 07/28/2026 HPV/Cotest 07/28/2026 09/05/2022, [...] 1-dose 75+ series) 2064 HIV Screening Completed 04/11/2025, 12/10, 06/25/2024, Additional history exists Hepatitis C Screening Completed 04/11/2025 , 12/20/2024, 06/25/2024, Additional history exists HIB Vaccines Aged Out [...] Procedure Name Priority Date/Time Associated Diagnosis Comments 19 B(V) RESIN-BASED COMPOSITE - 1 SURF, POSTERIOR Routine 04/21/2025 9:00 AM EST CASE PRESENTATION, DETAILED AND EXTENSIVE TREATMENT PLANNING Routine 04/21/2025 9:00 AM EST TSH W/REFLEX TO FT4 Routine 04/11/2025 1 :39 PM EST Generalized anxiety disorder with panic attacks HEPATITIS PANEL, GENERAL Routine 04/11/2025 1:39 PM EST Screen for STD (sexually transmitted disease) SYPHILIS SCREEN Routine 04/11/2025 1:39 PM EST Screen for STD (sexually transmitted disease) HIV 1/2 ANTIGEN/ANTIBODY, FOURTH GENERATION W/RFL Routine 04/11/2025 1:39 PM EST Screen for STD (sexually transmitted disease) PERIODIC ORAL EVALUATION - ESTABLISHED PATIENT Routine [...] 02/15/2025 2:20 PM EDT Dysphagia, unspecified type LIPID PANEL, STANDARD Routine 12/20/2024 4:25 PM [...] Recently Relevant to Health Maintenance Results * Syphilis Screen (04/11/2025 1:39 PM EST) Syphilis Screen Nonreactive Nonreactive [facility] Blood 04/11/2025 1:39 PM EST 04/11/2025 4:15 PM EST us Deborha Lugo MD LAB BLOOD ORDERABLES Fin al Result [facility] [address] [place] [phone] * TSH with Reflex to Free T4 (04/11/2025 1:39 PM EST) TSH reflex Free T4 0.71 0.32 - 4.0 uIU/mL [facility] Blood 04/11/2025 1:39 PM EST 04/11/2025 4:15 PM EST Deborah Lugo MD LAB BLOOD ORDERABLES Fin al Result Performing Organization Address City/[facility]/ZIP Co de Phone Number [facility] [address] [place] [phone] * Hepatitis Panel, General (04/11/2025 1:39 PM EST) Hepatitis A IgM Nonreactive Nonreactive [facility] Comment:IgM antibodies to HALL V not detected; does not exclude earlyacute or recovered HAV infection. ~Hepatitis B Surface Antibody REACTIVE Nonreactive [facility] Comment:REACTIVE: > 11.99 mI U/mL Hepatitis B Core Antibody Nonreactive Nonreactive [facility] Hepatitis C Antibody Nonreactive Nonreactive [facility] Comment:Antibodies to HCV no t detected; does not exclude early acuteHCV infection. Hepatitis B Surface Ag Negative Negative [facility] Blood 04/11/2025 1:39 PM EST 04/11/2025 4:15 PM EST Deborah Lugo MD LAB BLOOD ORDERABLES Fin al Result Performing Organization Address [facility] Co de Phone Number [facility] [address] [place] [phone] * HIV-1/2 Antigen and Antibodies, Fourth Generation, with Reflexes (04/11/2025 1:39 PM EST) HIV AB/AG Nonreactive Nonreactive [facility] Comment:HIV-1 p24 Ag and/or HIV-1/HIV-2 Ab not detected.A test result that is nonreactive does not exclude thepossibility of exposure to or infection with HIV-1 and/orHIV-2. Nonreactive results in this assay for individualswith prior exposure to HIV-1 and/or HIV-2 may be due toantigen and antibody levels that are below the limit ofdetection of this assay.The [employer] HIV Ag/Ab Combo assay result andsupplemental assay results should be interpreted inconjunction with the patient's clinical presentation,history and other laboratory results. If the results areinconsistent with clinical evidence, additional testing issuggested to confirm the result. Blood Venous blood specimen / Unknown 04/11/2025 1:39 PM EST 04/11/2025 4:15 PM EST us Deborah Lugo MD LAB BLOOD ORDERABLES Fin al Result Performing Organization Address [facility] Co de Phone Number [facility] [address] [place] [phone] * Helicobacter pylori??Antigen, EIA, Stool (03/01/2025 1:45 PM EDT) H pylori Ag Stool SEE NOTE [facility] Comment:HELICOBACTER PYLORI AG, EIA, STOOL Micro Number: [id number] Test Status: Final Specimen Source: Stool Specimen Quality: Adequate H.pylori Ag: Not Detected Antimicrobials, proton pump inhibitors, and bismuth preparations inhibit H. pylori and ingestion up to two weeks prior to testing may cause false negative results. If clinically indicated the test should be repeated on a new specimen obtained two weeks after discontinuing treatment. Reference Range: Not DetectedTHIS TEST WAS PERFORMED AT:[facility] [address] [phone] STANTON MD Stool Rectal contents / Unknown 03/01/2025 1:45 PM EDT 03/01/2025 5:24 PM EDT us Vick ANTONIO LAB BODY FLUIDS AND STOOLS ORDER ARIANA Final Result Performing Organization Address [facility] Co de Phone Number [facility] [address] [place] [phone] * FL BARIUM SWALLOW MODIFIED (02/15/2025 2:20 PM EDT) Anatomical Region Laterality Modality Head, Neck Radiographic Belle ging 02/15/2025 2:20 PM EDT Narrative 02/15/2025 4:59 PM EDT [address] [address] Fluoroscopy Report Signed Patient: Sandrine Resendiz MR#: [id number] 58 : 1990 Acct:[id number] Age/Sex: 34 / F ADM Date: 02/15/25 Loc: ADDI Attending Dr: Vick Boyd NP Ordering Physician: VICK BOYD NP Date of Service: 02/15/25 Procedure(s): FL Modified Barium Swallow Accession Number(s): [id number] cc: VICK BOYD NP Reason for Exam: [...] 02/15/25 1655 DD/ 1420 TD/TT: 02/15/25 142 Rehabilitation Program Manager: MICHAEL Procedure Note Donotuseinterpreter, Image - 02/15/2025 [place] [address] Fluoroscopy Report Signed Patient: Rosaline ResendizR#: [id number] 58 : 1990Acct:[id number] Age/Sex: 34 / FADM Date: 02/15/25 Loc: ADDI Attending Dr: Vick Boyd NP Ordering Physician: VICK BOYD NP Date of Service: 02/15/25 Procedure(s): FL Modified Barium Swallow Accession Number(s): [id number] cc: VICK BOYD NP Reason for Exam: [...] Guaman MD in OV> 02/15/25 1655 DD/ 19 TD/TT: 02/15/25 142 Rehabilitation Program Manager: MICHAEL us Vick Boyd ANP IMG FLUOROSCOPY PROCEDURES Final Result * (ABNORMAL) Lipid Panel, Standard (12/20/2024 4:25 PM EDT) Triglycerides 71 <150 mg/dL [facility] Comment:Desirable Triglyceri de: less than 150 mg/dLBorderline High Triglyceride 150-199 mg/dLHigh Triglyceride: 200-499 mg/dLVery High Triglyceride: greater than or equal to 5OO mg/dL Cholesterol 148 <200 mg/dL [facility] Comment:Desirable Cholestero l: less than 200 mg/dLBorderline High Cholesterol: 200-239 mg/dLHigh Cholesterol: greater than 239 mg/dL LDL Cholesterol Calculated 96 <100 mg/dL [facility] Comment:Desirable LDL: less than 100 mg/dLNear Optimal/Above Optimal LDL: 110- 129 mg/dLBorderline High LDL: 130-159 mg/dLHigh LDL: 160-189 mg/dLVery High LDL: greater than or equal to 190 mg/dL HDL Cholesterol 38(L) >40 mg/dL [facility] Comment:Desirable HDL: great er than 40 mg/dL Note: This HDL assay may give artificially low results in patients with liver disease. Blood Venous blood specimen / Unknown 12/20/2024 4:25 PM EDT 12/20/2024 5:28 PM EDT us Vick ANTONIO LAB BLOOD ORDERABLES Final Resul t [facility] [address] [place] [address] [phone] * Pap Smear (07/29/2023 12:00 AM EDT) 07/29/2023 07/31/2023 1:0 0 PM EDT Narrative [facility] - 08/11/2023 1:16 PM EDT ----- ------- Name: Sandrine Resendiz Age/Sex: 32/F : 1990 Unit#: [id number] Attend Dr: Roya Dodd Re07/29/23 Status: DEP REF Location: [facility] Disch: ----- ------- SPEC : [id number] RECD: 07/31/23-1299 STATUS: OSVALDO REFreddy NUM: [id number] KINSEY: 07/29/23-[address]: Roya Dodd [facility] ENTERED: 07/31/23-1413 SP TYPE: Pap Smr OTHR DR: VICK BOYD INSURANCE RATER ORDERED: Pap Smear Interpretation Satisfactory for evaluation. Moderate inflammation. Negative for intraepithelial lesion or malignancy. HPV mRNA E6/E7: NOT DETECTED This assay detects E6/E7 viral messenger RNA (mRNA) from 14 high-risk HPV types (16, 18, 31, 33, 35, 39, 45, 51, 52, 56, 58, 59, 66, 68) HPV testing performed by [facility], [place], [place]. See reference laboratory portion of the EMR for entire report. Clinical Information LMP: 07/14/23 Previous PAP test: 06/05/22, Abnormal Material Received ThinPrep-Cervical Copies To: [facility] [address] [place] [address] VICK BOYD NP [address] [facility] [address] [place] [address] ----- ------- Signed (signature on file) BABATUNDE Bartholomew (ASCP) 08/11/23 1316 ----- ------- END OF REPORT us Generic External Data Provider LAB CYTOLOGY KELSEY WALLACE Final Result [facility] [address] [place] [phone] [phone] * (ABNORMAL) Image-Guided Pap with Age-Based Screening??with CT/NG,??Trichomonas (09/05/2022 10:13 AMEDT) Comment [facility] Comment: This order for age-based cervical cancer and STI screening follows ACOG guidelines(PB 168, 140, OSO552). See individual assays for performing site location. Clinical Information: ASCUS HPV NEG 2021 [facility] [place] [employer] LMP: NONE GIVEN [facility] [place] [employer] Prev. PAP: YES [facility] [place] [employer] Prev. BX: NONE GIVEN [facility] SOURCE: None given [facility] [place] Statement Of Adequacy: [facility] [place] Comment: Satisfactory for evaluation. Endocervical/transformation zone component present. General Categorization: EPITHELIAL CELL ABNORMALITY(A) [facility] [place] Interpretation/Re sult: Atypical Squamous Cells of Undetermined Significance (ASC-US)(A) [facility] [place] [employer] Comment: This Pap test has been evaluated with computer assisted technology. [facility] [place] Triage Licensed Practical Nurse: [employer] [place] Comment: YP, CT(ASCP) CT screening location: [place] [address] Review Triage Licensed Practical Nurse: [facility] [place] [employer] Comment: RMM, CT(ASCP) CT screening location: [place] [address] PATHOLOGIST: [facility] [place] Comment: Halima Stanton M.D. , Board Certified in Anatomic and Clinical Pathology, Cytopathology and Immunopathology (electronic signature) (Always Message) [facility] [employer] Comment: EXPLANATORY NOTE: The Pap is a [...] HPV nRNA E6/E7 Not Detected Not Detected [facility] Comment: Methodology: Principal Web Developer-Mediated Amplification This assay detects E6/E7 viral messenger RNA (mRNA) from 14 high-risk HPV types (16,18,31,33,35,39,45,51,52,56,58,59,66,68). Cervical sources are required for HPV testing. If a vaginal source from a patient who has had a total hysterectomy with removal of cervix was submitted, please contact the testing laboratory for alternative testing options. For additional information, please refer to http://MOVL.Barnana/faq/MHU758w9 (This link if provided for information/ educational purposes only.) Chlamydia trachomatis RNA, TMA, Urogenital NOT DETECTED NOT DETECTED [facility] [place] Neisseria gonorrhoeae RNA, TMA, Urogenital NOT DETECTED NOT DETECTED [facility] [place] Comment [facility] [place] Comment: The analytical performance characteristics of this assay, when used to test SurePath(TM) specimens have been determined by [facility]. The modifications have not been cleared or approved by the FDA. This assay has been validated pursuant to the CLIA regulations and is used for clinical purposes. For additional information, please refer to https://[employer]/faq/MIR283 (This link is being provided for information/ educational purposes only.) Trichomonas vaginalis, QL, TMA, PAP Vial NOT DETECTED NOT DETECTED [facility] Comment: The analytical performance characteristics of this assay have been determined by [facility]. The modifications have not been cleared or approved by the FDA. This assay has been validated pursuant to the CLIA regulations and is used for clinical purposes. For additional information, please refer to http://MOVL.[employer]ana/ faq/Trichomonastma (This link is being provided for information/ educational purposes only.) Pap Vial 09/05/2022 10:1 3 AM EDT 09/06/2022 5:38 AM EDT [facility] CYTOLOGY ORDERABLES F inal Result [facility] [address], [place] [address] [facility] [place] [address] [place] [phone] from Last 3 Months or Most Recently Relevant to Health Maintenance [place] [facility] MEDICAID STAND ADULT Care Teams Plate Mill Hand Relationship Specialty Start Date End Date Vick Boyd ANP [address] [place] [phone] PCP - General Family Medicine 05/26/20
--- OUTSIDE RECORDS SUMMARY | 2025-05-04 12:23 | XMS_ITS | Encounter Summary ---
Author Organization [facility] ASSURED INFORMATION SECURITY [facility] Address [address] [facility] 7t h Floor [place] [phone] Care Team Providers Care Mat Worker Name Role Phone Chelsi Gilmore Primary Care Provider [phone] Encounter Details Date Type Department Care Team (Latest Contact Info) Description 09/01/2018 Abstract [facility] CONVERSIONS Dental, Provider, DDS Social History [...] Description 05/17/2025 11:15 AM EST Office Visit [facility] MEDICINE [address] [place] [address] Chelsi Gilmore ANP [address] [place] [address] 05/17/2025 3:00 PM EST Office Visit [facility] CHC ADULT DENTAL [address] [place] [address] Ze Cazares, WILLIAMS [address] [place] [address] 2025 10:15 AM EDT Office Visit [facility] ADULT DENTAL [address] [place] [address] Janiya Swartz [address] [place] [address] documented as of this encounter Visit Diagnoses Not on filedocumented in this encounter Care Teams Mat Worker Relationship Specialty Start Date End Date Chelsi Gilmore ANP [address] [place] [address] PCP - General Family Medicine 05/26/20 documented as of this encounter
--- NOTE | 2025-05-04 13:01 | MHC.OFFVIS ---
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 Patient neg sleep study but persistent daytime somnolence.(AHI-0.7, HALIMA-84%). 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 Dr. Susan Gilmore, [facility]. May 2024 HST c/w (AHI-0.7, HALIMA-84%), pt states her leads were not connected properly would like to be evaluated in lab. For a long time she has been snoring and will wake up at night multiple times due to gasping of air. She denies grinding her teeth at night, waking up with headaches. She has r sided jaw pain, clenches her teeth at night. She denies parasomnias. She gets drowsy, and feels chronically fatigue while performing daily tasks. She falls asleep quickly and when watching movies. She falls asleep while driving more than 30 minutes when she does not have anyone in the car with her. She has acid reflux managed with omeprazole. RLS symptoms bilateral lower extremity paresthesias, with cramps and spasms. She had PT. Memory is poor, she forgets everything very quickly, tasks and gets lost while driving. Mood is stable with hydroxyzine 25mg po TID. She no longer has anxiety and panic attacks. She works out daily 30-45 min, walks daily, due to fibromyalgia, drinks plenty of water.Diet is stable. She smokes MJ daily, denies cigarettes, and drinks alcohol socially. [facility] Medical History Pain of plantar aspect of heel Ankle pain, right Sciatica associated with disorder of lumbar spine Lower back pain Left knee pain Bilateral knee pain Hemorrhoids Fibromyalgia Surgical History Tubal ligation status Family History Father Diabetes Mother Diabetes Social History Household Members: Children Alcohol intake: current Alcohol intake frequency: holidays/special occasions only Patient Tobacco Use Status: Never used Tobacco Substance Use Type: Marijuana Current occupational status: employed Current occupation: [employer], [employer] Reproductive History Menstrual Age of Menarche: 11 Physical Exam Vital Signs: Last Vital Signs Pulse 76 05/04/25 13:02 BP 104/64 05/04/25 13:02 Pulse Ox 100 05/04/25 13:02 Oxygen Delivery Method Room Air 05/04/25 13:02 BMI result Body Mass Index 35.0 Const General: cooperative, comfortable and no acute distress Nutritional Appearance: obese Orientation/consciousness: patient oriented x3 Limitations: language barrier HEENT Face and sinus: Yes face symmetric Throat: Yes other (mallampti score is 3) Eyes Pupils: Equal, round and reactive pupils present Neck Neck: Yes full ROM Resp Effort & Inspection: normal respiratory effort and able to speak in complete sentences Neuro General: patient oriented x3 and moves all extremities Cranial nerves: Yes Equal, round and reactive pupils present, Yes Normal accommodation reflex present, Yes Normal facial strength present, Yes Midline tongue present, Yes Ability to bilaterally rotate head present and Yes Ability to bilaterally elevate shoulders present Cognition (Neuro): normal cognition Gait exam (Neuro): Normal gait present Motor exam (neuro): 5/5 motor strength present throughout and Normal motor muscle tone present throughout Psych Appearance: grossly normal Speech and movement: Normal speech and movement present Affect: normal affect Attitude: cooperative Thought process: Normal thought process present Thought content: Normal thought content present Insight: Good insight present (Psych) Results Reviewed Results Reviewed: May 2024 HST c/w (AHI-0.7, HALIMA-84%), pt states her leads were not connected properly Labs reviewed with pt B12 is low, vit d is low, she is supplementing. Will check Ferritin, Homocysteine and MMA for metabolic disorders. Assessment & Plan Assessment & Plan (1) Excessive daytime sleepiness: Code(s): G47.19 - Other hypersomnia Category: Medical (2) Primary snoring: Code(s): R06.83 - Snoring Category: Medical (3) RLS (restless legs syndrome): Code(s): G25.81 - Restless legs syndrome Category: Medical (4) Chronic fatigue: Code(s): R53.82 - Chronic fatigue, unspecified Category: Medical Plan PSG to r/o sleep disorders, thrashing behavior. RLS will check Labs reviewed with pt B12 is low, vit d is low, she is supplementing. Will check Ferritin, Homocysteine and MMA for metabolic disorders. Orders: Orders Vitamin D 25-OH Total 05/04/25 R53.82 - Chronic fatigue, unspecified TSH reflex Free T4 05/04/25 R53.82 - Chronic fatigue, unspecified Methylmalonic Acid 05/04/25 G47.9 - Sleep disorder, unspecified, R53.82 - Chronic fatigue, unspecified, R53.83 - Other fatigue RT PSG in-lab sleep study 05/04/25 G47.19 - Other hypersomnia Vitamin B12 and Folate 05/04/25 R53.82 - Chronic fatigue, unspecified Homocysteine 05/04/25 G47.9 - Sleep disorder, unspecified, R53.82 - Chronic fatigue, unspecified, R53.83 - Other fatigue Ferritin 05/04/25 R53.82 - Chronic fatigue, unspecified Patient Instructions: Please complete the following fasting labs to rule out deficiencies. CBC/CMP/ B12/ Vit D/ TSH/ Homocysteine and MMA/ Ferritin. Sleep Hygiene provided: set a scheduled bedtime and wake time to help regulate the circadian rhythm and balance the release of pituitary hormones. Sleep in a dark room, temperatures below 68 degrees, and no devices n bed. Limit caffeinated products 6 hours prior to bed, and limit fluids 2-4 hours prior to bed. Gentle night yoga, diffusing essential oils, and playing soft music can be relaxing. Coding Level of Care Code New Pt Level 4 (94954) Diagnoses Excessive daytime sleepiness G47.19 Primary snoring R06.83 RLS (restless legs syndrome) G25.81 Chronic fatigue R53.82 Sleep Questionnaire Difficulty falling asleep: No Difficulty staying asleep?: No Number of arousals: 1 Snoring: No Witnessed apneas: No Gasping arousals: No Nocturia: No GERD: Yes Vivid dreams: No Acting out dreams: Yes Abnormal behavior in sleep: No Abnormal movements in sleep: No Morning headaches: No Excessive daytime sleepiness: Yes Daytime naps: Yes Restless legs: Yes Hallucinations: No Sleep paralysis: No Drop attacks: No Sleep Study: Yes CPAP: Yes
[2025-05-04 13:02] VITALS: BP 104/64; PULSE 76; O2SAT 100; BMI 35.0
== END 2025-05-04 13:49 | disposition home or self-care (01) ==
LOC: HO.HSMC 12:21
PROVIDERS: PCP Internal Medicine; Visit Provider Physician Assistant Medical
DX: G47.19 Other hypersomnia (principal); R06.83 Snoring; G25.81 Restless legs syndrome; R53.82 Chronic fatigue, unspecified
CPT/HCPCS: 99204

== ENCOUNTER → 2025-05-04 12:21 | Outpatient (BNVA) | payer MEDICAID, SELFPAY | PROVIDERS: PCP Internal Medicine; Visit Provider Physician Assistant Medical | DX: G47.19 Other hypersomnia (principal); G25.81 Restless legs syndrome; R53.82 Chronic fatigue, unspecified; R06.83 Snoring; R46.89 Other symptoms and signs involving appearance and behavior; Z71.89 Other specified counseling | CPT/HCPCS: 99212 ==